=== PATIENT | female | born 1950 | race Caucasian/White ===

== ENCOUNTER → 2016-08-26 | Outpatient (CLI) | payer MEDICARE ==
--- NOTE | 2016-08-26 11:06 | RAD ---
Chest, 2 views, 08/26/2016: History: Dyspnea Comparison is made to a study from 12/22/2012. The heart is within normal limits in size. The pulmonary vascularity is normal. No pulmonary consolidation is seen. There is no evidence of pleural fluid. Moderate spurring is present in the spine. IMPRESSION: No acute cardiopulmonary abnormality is detected.
== END | disposition home or self-care (01) ==
LOC: DXRADRC 08:42
PROVIDERS: ATTEND Physician Assistant
DX: R06.00 Dyspnea, unspecified (principal); J40 Bronchitis, not specified as acute or chronic
CPT/HCPCS: 71020

== ENCOUNTER → 2016-09-14 | Outpatient (CLI) | payer MEDICARE ==
--- NOTE | 2016-09-14 13:24 | CARD ---
APPROVED REPORT EXAM: Two-dimensional and M-mode echocardiogram with Doppler and color Doppler. Other Information Quality : GoodHR: 61bpm Rhythm : NSR INDICATION Murmur RISK FACTORS Hypertension Obesity Hyperlipidemia Family History 2D DIMENSIONS RVDd3.0 (2.9-3.5cm)Left Atrium(2D)4.6 (1.6-4.0cm) IVSd1.0 (0.7-1.1cm)Aortic Root(2D)1.9 (2.0-3.7cm) LVDd5.2 (3.9-5.9cm)LVOT Diameter2.2 (1.8-2.4cm) PWd0.9 (0.7-1.1cm)LVDs3.4 (2.5-4.0cm) FS (%) 34.5 %SV83.1 ml LVEF(%)63.2 (>50%) Aortic Valve AoV Peak Enio.179.3cm/sAoV VTI43.1cm AO Peak GR.12.9mmHgLVOT Peak Enio.143.5cm/s LVOT VTI 35.00cmAO Mean GR.6mmHg MARY (VMAX)3.92yt5KXJ (VTI)3.06cm2 Mitral Valve MV E Egqeizgu167.0cm/sMV E Peak Gr.5mmHg MV DECEL [id number] A Ewxkclfb66.8cm/s MV E Mean Gr.2mmHgE/A Ratio1.7 MV A [id number] Pulmonary Valve PV Peak Ltnxjxfn920.2cm/sPV Peak Grad.4mmHg Tricuspid Valve TR P. Wccmlztw594fz/sTR Peak Gr.51mmHg Pulmonary Vein S1 Mecbgciq16.1cm/sD2 Xinqhqop45.5cm/s LEFT VENTRICLE The left ventricle is normal size. There is normal left ventricular wall thickness. The left ventricu lar systolic function is normal and the ejection fraction is within normal range. The Ejection Fracti on is 60-65%. There is normal LV segmental wall motion. Transmitral Doppler flow pattern is Grade I-a bnormal relaxation pattern. RIGHT VENTRICLE The right ventricle is normal size. There is normal right ventricular wall thickness. The right ventr icular systolic function is normal. ATRIA The left atrium is moderately dilated. The right atrium size is normal. The interatrial septum is int act with no evidence for an atrial septal defect or patent foramen ovale as noted on 2-D or Doppler i maging. AORTIC VALVE The aortic valve is moderately sclerotic. The aortic valve grossly appears to be trileaflet but canno t rule out bicuspid valve. Doppler and Color Flow revealed no significant aortic regurgitation. There is no significant aortic valvular stenosis. MITRAL VALVE Mitral annular calcification is mild. There is no evidence of mitral valve prolapse. There is no mitr al valve stenosis. Doppler and Color Flow revealed mild mitral regurgitation. TRICUSPID VALVE Doppler and Color Flow revealed mild tricuspid regurgitation. The pulmonary artery systolic pressure is estimated at 54 mmHg. There is mild pulmonary hypertension. PULMONIC VALVE Doppler and Color Flow revealed mild pulmonic valvular regurgitation. There is no pulmonic valvular s tenosis. GREAT VESSELS The aortic root is normal in size. The ascending aorta is normal in size. The IVC is normal in size a nd collapses >50% with inspiration. PERICARDIAL EFFUSION There is a trace anterior pericardial effusion. Critical Notification Critical Value: No <Conclusion> The left ventricular systolic function is normal and the ejection fraction is within normal range. Th e Ejection Fraction is 60-65%. There is normal LV segmental wall motion. The left atrium is moderately dilated. The aortic valve is moderately sclerotic. The aortic valve grossly appears to be trileaflet but canno t rule out bicuspid valve. Doppler and Color Flow revealed mild mitral regurgitation. Doppler and Color Flow revealed mild tricuspid regurgitation. The pulmonary artery systolic pressure is estimated at 54 mmHg. There is mild pulmonary hypertension.
== END | disposition home or self-care (01) ==
LOC: ECHO 08:53
PROVIDERS: ATTEND Physician Assistant
DX: I08.1 Rheumatic disorders of both mitral and tricuspid valves (principal); I27.2 Other secondary pulmonary hypertension
CPT/HCPCS: 93306

== ENCOUNTER 2018-08-03 20:55 | Inpatient (IN) | payer MEDICARE ==
[~2018-08-03] VITALS: Ht 157.5 cm; Wt 99.4 kg
[2018-08-03] MEDS ORDERED: IV NORMAL SALINE 1,000ML 1,000 ML IV SCH (21:11)
[2018-08-03] MEDS ORDERED: dilTIAZem 25 MG/5 ML VIAL IVP ONE ×2 (21:18→21:30)
--- NOTE | 2018-08-03 21:19 | PHYS DOC ---
Past History Past Medical History: A-Fib, Anxiety, High Cholesterol Smoking: Non-smoker Adult General Chief Complaint Chief Complaint: Palpitations HPI HPI Patient is a 67-year-old female who presents to the emergency department for evaluation. While watching TV about an hour and a half ago she began experiencing some palpitations and some shortness of breath. She did not really have any chest pain. She denies any dizziness or lightheadedness, nausea, vomiting. She states that she has had "an irregular heart beat" in the past, and thinks he might of been atrial fibrillation, but is uncertain. She does not take any anticoagulants. There are no alleviating or exacerbating factors to her symptoms. Review of Systems Review of Systems Constitutional: Denies fever or chills [] Eyes: Denies change in visual acuity, redness, or eye pain [] HENT: Denies nasal congestion or sore throat [] Respiratory: Denies cough or pleuritic chest pain [] Cardiovascular: No additional information not addressed in HPI [] GI: Denies abdominal pain, nausea, vomiting, bloody stools or diarrhea [] : Denies dysuria or hematuria [] Musculoskeletal: Denies back pain or joint pain [] Integument: Denies rash or skin lesions [] Neurologic: Denies headache, focal weakness or sensory changes [] Endocrine: Denies polyuria or polydipsia [] All other systems were reviewed and found to be within normal limits, except as documented in this note. Physical Exam Physical Exam PHYSICAL EXAM: CONSTITUTIONAL: Well developed, well nourished HEAD: normocephalic, atraumatic EENT: PERRL, EOMI. Conjunctivae normal color, sclerae non-icteric; moist mucous membranes. NECK: Supple, non-tender; no meningismus. LUNGS: Lungs CTA, breathing even and unlabored. Normal air movement. HEART: Rapid, irregularly irregular rhythm, no murmur CHEST: No deformity; non-tender ABDOMEN: The abdomen is soft, and non-tender, no masses or bruits. EXTREM: Normal ROM; no deformity, no calf tenderness. Normal pulses palpable in all extremities. There is no pedal edema. SKIN: No rash; no diaphoresis NEURO: Alert; normal speech and cognition; CN's grossly intact; strength grossly intact without focal deficit. BACK: No CVA TTP. Current Patient Data Lab Results Laboratory Tests Test 08/03/18 21:44 White Blood Count 8.8 x10^3/uL Red Blood Count 4.29 x10^6/uL Hemoglobin 12.8 g/dL Hematocrit 37.5 % Mean Corpuscular Volume 88 fL Mean Corpuscular Hemoglobin 30 pg Mean Corpuscular Hemoglobin Concent 34 g/dL Red Cell Distribution Width 14.3 % Platelet Count 349 x10^3/uL Neutrophils (%) (Auto) 65 % Lymphocytes (%) (Auto) 26 % Monocytes (%) (Auto) 7 % Eosinophils (%) (Auto) 2 % Basophils (%) (Auto) 1 % Neutrophils # (Auto) 5.7 x10^3uL Lymphocytes # (Auto) 2.2 x10^3/uL Monocytes # (Auto) 0.6 x10^3/uL Eosinophils # (Auto) 0.2 x10^3/uL Basophils # (Auto) 0.0 x10^3/uL Prothrombin Time 9.9 SEC Prothromb Time International Ratio 1.0 Activated Partial Thromboplast Time 26 SEC Sodium Level 140 mmol/L Potassium Level 3.9 mmol/L Chloride Level 102 mmol/L Carbon Dioxide Level 28 mmol/L Anion Gap 10 Blood Urea Nitrogen 20 mg/dL Creatinine 0.9 mg/dL Estimated GFR (Cockcroft-Gault) 62.3 BUN/Creatinine Ratio 22 Glucose Level 155 mg/dL Calcium Level 9.7 mg/dL Total Bilirubin 0.3 mg/dL Aspartate Amino Transf (AST/SGOT) 20 U/L Alanine Aminotransferase (ALT/SGPT) 20 U/L Alkaline Phosphatase 103 U/L Creatine Kinase 50 U/L Creatine Kinase MB (Mass) 0.8 ng/mL Creatine Kinase MB Relative Index 1.6 % Troponin I Quantitative < 0.017 ng/mL SI-Sbi-A-Type Natriuretic Peptide 224 pg/mL Total Protein 7.8 g/dL Albumin 3.8 g/dL Albumin/Globulin Ratio 1.0 Current Medications Medications (Trade) Dose Ordered Sig/Evangelina Route PRN Reason Start Time Stop Time Status Last Admin Dose Admin Apixaban (Eliquis) 5 mg BID PO 08/03/18 21:30 Diltiazem HCl 125 mg/Dextrose 125 ml @ 5 mls/hr CONT PRN IV SEE I/O RECORD 08/03/18 21:15 08/03/18 21:43 Diltiazem HCl (Cardizem Iv Push) 20 mg 1X ONCE IVP 08/03/18 21:30 08/03/18 21:31 DC 08/03/18 21:27 Aspirin (Children'S Aspirin) 162 mg 1X ONCE PO 08/03/18 21:30 08/03/18 21:31 DC 08/03/18 21:26 Sodium Chloride 1,000 ml @ 100 mls/hr Q10H IV 08/03/18 21:11 08/04/18 07:10 Diltiazem HCl (Cardizem Iv Push) 25 mg STK-MED ONCE IVP 08/03/18 21:18 08/03/18 21:19 DC EKG EKG [Rapid Atrial Fibrillation at 153 BPM, left axis deviation, nonspecific ST/T changes. Nonspecific intraventricular conduction delay is present. Otherwise normal intervals.] Radiology/Procedures Radiology/Procedures [ER physician preliminary chest x-ray interpretation: No acute disease.] Course & Med Decision Making Course & Med Decision Making Pertinent Labs and Imaging studies reviewed. (See chart for details) []10:30 PM:The patient's condition remains stable. I spoke with the hospitalist, who accepted the patient to the hospital for further evaluation and treatment. Patient did transiently convert to sinus rhythm but before and EKG could be obtained again today to document this rhythm changed she converted back into atrial fibrillation. Her rate has improved, but is not completely controlled on Cardizem drip, which is being titrated. CRITICAL CARE TIME: 45 Minutes, excluding any procedures and care of other patients. Dragon Disclaimer Dragon Disclaimer This electronic medical record was generated, in whole or in part, using a voice recognition dictation system. Departure Departure: Impression: Primary Impression: Rapid atrial fibrillation Disposition: ADMITTED INPATIENT Admitting Physician: Hanna Arce Condition: STABLE Referrals: JULIA DAS (PCP) CHAO COLON MD Aug 03, 2018 21:19
[2018-08-03] MEDS ORDERED: ASPIRIN 81 MG TAB.CHEW PO ONE (21:30)
[2018-08-03] MEDS: dilTIAZem VIAL 125 MG in IV DEXTROSE 5% 100 ML IV PRN (21:43)
[2018-08-03 21:54] LABS: BASO % 1 % (0-3); EOS # 0.2 x10^3/uL (0.0-0.7); EOS % 2 % (0-3); HEMATOCRIT 37.5 % (36.0-47.0); HEMOGLOBIN 12.8 g/dL (12.0-15.5); LYMPH # 2.2 x10^3/uL (1.0-4.8); LYMPH % 26 % (24-48); MEAN CORPUSCULAR HEMOGLOBIN 30 pg (25-35); MEAN CORPUSCULAR HGB CONC 34 g/dL (31-37); MEAN CORPUSCULAR VOLUME 88 fL (79-100); MONO # 0.6 x10^3/uL (0.0-1.1); MONO % 7 % (0-9); NEUT # 5.7 x10^3uL (1.8-7.7); NEUT % 65 % (31-73); PLATELET COUNT 349 x10^3/uL (140-400); RED BLOOD COUNT 4.29 x10^6/uL (3.50-5.40); RED CELL DISTRIBUTION WIDTH 14.3 % (11.5-14.5); WHITE BLOOD COUNT 8.8 x10^3/uL (4.0-11.0)
--- NOTE | 2018-08-03 22:14 | RAD ---
EXAM: CHEST 1 VIEW History: Shortness of breath, palpitations COMPARISON: 08/26/2016 TECHNIQUE: Single portable radiograph of the chest FINDINGS: The cardiac silhouette is unremarkable. The lungs are clear bilaterally. The costophrenic sulci are clear and well demarcated. IMPRESSION: No radiographic evidence of an acute cardiopulmonary process. Electronically signed by: Tan Rachel MD (08/03/2018 10:11 PM) [facility]
[2018-08-03 22:25] LABS: ALBUMIN 3.8 g/dL (3.4-5.0); CALCIUM 9.7 mg/dL (8.5-10.1); CREATININE 0.9 mg/dL (0.6-1.0); GFR 62.3; POTASSIUM 3.9 mmol/L (3.5-5.1); TOTAL BILIRUBIN 0.3 mg/dL (0.2-1.0); TOTAL PROTEIN 7.8 g/dL (6.4-8.2)
[2018-08-03 23:50] VITALS: BP 127/60
[2018-08-04] VITALS (42 sets, daily range): BP systolic 69–143; BP diastolic 48–78
[2018-08-04] MEDS ORDERED: GEMF600T8 PO (01:59)
[2018-08-04] MEDS ORDERED: GLUC1TAB33 PO (01:59)
[2018-08-04] MEDS ORDERED: MULT1TAB52 PO (01:59)
[2018-08-04] MEDS ORDERED: HYDR25TA10 PO (01:59)
[2018-08-04] MEDS ORDERED: ASPI-630 PO (01:59)
[2018-08-04] MEDS ORDERED: OXYB5TAB PO (01:59)
[2018-08-04] MEDS ORDERED: OMEP20TA63 PO (01:59)
[2018-08-04] MEDS ORDERED: LISI-334 PO (01:59)
[2018-08-04] MEDS ORDERED: METO25TA4 PO (01:59)
[2018-08-04] MEDS: APIXABAN 5 MG TABLET. PO SCH ×2 (02:24→08:39)
[2018-08-04] MEDS ORDERED: PANTOPRAZOLE 40 MG TABLET. PO SCH (07:30)
[2018-08-04] MEDS ORDERED: GEMFIBROZIL 600 MG TABLET. PO SCH (07:30)
[2018-08-04] MEDS: dilTIAZem VIAL 125 MG in IV DEXTROSE 5% 100 ML IV PRN (07:49)
[2018-08-04] MEDS ORDERED: DOCUSATE SODIUM 100 MG CAPSULE PO SCH (09:00)
[2018-08-04] MEDS ORDERED: OXYBUTYNIN CHLORIDE 5 MG TABLET PO SCH (09:00)
[2018-08-04] MEDS ORDERED: MULTIVITAMIN with MINERAL TABLET. PO SCH (09:00)
[2018-08-04] MEDS ORDERED: GLUCOSAMINE/CHOND 500/400MG CAPSULE PO SCH (09:00)
[2018-08-04 09:02] LABS: BASO % 0 % (0-3); EOS # 0.2 x10^3/uL (0.0-0.7); EOS % 2 % (0-3); HEMOGLOBIN 12.9 g/dL (12.0-15.5); LYMPH # 2.5 x10^3/uL (1.0-4.8); LYMPH % 32 % (24-48); MEAN CORPUSCULAR HEMOGLOBIN 30 pg (25-35); MEAN CORPUSCULAR HGB CONC 34 g/dL (31-37); MEAN CORPUSCULAR VOLUME 88 fL (79-100); MONO # 0.5 x10^3/uL (0.0-1.1); MONO % 6 % (0-9); NEUT # 4.6 x10^3uL (1.8-7.7); NEUT % 59 % (31-73); PLATELET COUNT 364 x10^3/uL (140-400); RED CELL DISTRIBUTION WIDTH 15.1 % (11.5-14.5); WHITE BLOOD COUNT 7.7 x10^3/uL (4.0-11.0)
[2018-08-04 09:03] LABS: ALBUMIN 3.5 g/dL (3.4-5.0); ALBUMIN/GLOBULIN RATIO 0.9 (1.0-1.7); CALCIUM 9.2 mg/dL (8.5-10.1); CREATININE 0.9 mg/dL (0.6-1.0); GFR 62.3; MAGNESIUM 1.6 mg/dL (1.8-2.4); POTASSIUM 3.7 mmol/L (3.5-5.1); TOTAL BILIRUBIN 0.3 mg/dL (0.2-1.0); TOTAL PROTEIN 7.3 g/dL (6.4-8.2)
[2018-08-04] MEDS ORDERED: MAGNESIUM OXIDE 400 MG TABLET PO SCH (09:13)
--- NOTE | 2018-08-04 09:29 | PDOC2 ---
SYMARIANNA Radha PATENTS EXAMINER 08/04/18 0928: CONSULT Date of Admission DATE: 08/04/18 TIME: 09:27 Reason for Consult: palpitations, atrial fibrillation with RVR, dyspnea Problem List Problems Medical Problems: (1) Rapid atrial fibrillation Status: Acute History of Present Illness Ms Quintana is a 67 year old female who normally follows with [facility]. She has a history of hypertension, hyperlipidemia, pulmonary hypertension, and aortic valve sclerosis. She presents with complaints of palpitations and heart racing. She states onset was while at rest. She denies any associated chest discomfort or dyspnea. She does report some discomfort in her left arm that is intermittent and unrelated to exertion. She reports a recent URI with increased shortness of breath and cough for which she was advised to increase use of her inhaler. She says over the last several months she has cut back her activity due to having no energy. Over; the last week she noticed increased dyspnea and orthopnea as well. She has had a nonproductive cough. She denies lightheadedness or syncope. SHe denies significant edema or weight increase. She would like to go home today. Her most recent echocardiogram completed 08/25 revealed normal normal WINTER systolic function with EF of 60-65%. Normal LV segmental wall motion. Moderate LAE. The aortic valve was moderately sclerotic. The aortic valve appeared grossly to be trileaflet but Bicuspid valve could not be ruled out. Additionally there was mild mitral regurgitation and mild tricuspid regurgitations The PAS was estimated at 534 mmHg. Her most recent stress test completed on Sep 29 2016 revealed normal myocardial perfusion. Cardiovascular: HTN, hyperipidemia, valve insufficiency, pulmonary hypertension , Other (HILDA) Pulmonary: Other (chronic recurrent bronchitis) GI: GERD, Hemorrhoids Renal/: UTI Past Surgical History: Other (partial hysterectoy) Family History: Cancer, Diabetes, Heart Disease, High Cholestrol, Hypertension Social History non smoker, no significant etoh, no illicit drug use Current Medications Current Medications Apixaban (Eliquis) 5 mg BID PO Last administered on 08/04/18at 08:39; Start at 21:30 Diltiazem HCl 125 mg/Dextrose 125 ml @ 5 mls/hr CONT PRN IV SEE I/O RECORD Last administered on 08/04/18at 07:49; Start 08/03/18 at 21:15 Diltiazem HCl (Cardizem Iv Push) 20 mg 1X ONCE IVP Last administered on 21:27; Start 08/03/18 at 21:30; Stop 08/03/18 at 21:31; Status DC Aspirin (Children'S Aspirin) 162 mg 1X ONCE PO Last administered on 08/03/18 21:26; Start 08/03/18 at 21:30; Stop 08/03/18 at 21:31; Status DC Sodium Chloride 1,000 ml @ 100 mls/hr Q10H IV Last administered on 08/03/18 21:11; Start 08/03/18 at 21:11; Stop 08/04/18 at 07:10; Status DC Diltiazem HCl (Cardizem Iv Push) 25 mg STK-MED ONCE IVP ; Start 08/03/18 at 21: 18; Stop 08/03/18 at 21:19; Status DC Gemfibrozil (Lopid) 600 mg BIDBFRMEAL PO Last administered on 08/04/18at 07:44; Start 08/04/18 at 07:30 Glucosamine/ Chondroitin (Glucosamine-Chondroitin 500/400mg) 1 cap DAILY PO Last administered on 08/04/18 08:38; Start 08/04/18 at 09:00 Multivitamins/ Calcium (Thera-M Plus) 1 tab DAILY PO Last administered on 08:38; Start 08/04/18 at 09:00 Pantoprazole Sodium (Protonix) 40 mg DAILYAC PO Last administered on 08/04/18 07:44; Start 08/04/18 at 07:30 Oxybutynin Chloride (Ditropan) 5 mg DAILY PO Last administered on 08/04/18 08: 38; Start 08/04/18 at 09:00 Docusate Sodium (Colace) 100 mg BID PO Last administered on 08/04/18 08:39; Start 08/04/18 at 09:00 Magnesium Oxide (Magnesium Oxide) 400 mg BID PO Last administered on 08/04/18 09:16; Start 08/04/18 at 09:13; Stop 08/05/18 at 21:01 Active Scripts Active Reported Multivitamins (Multivitamin) 1 Each Tablet 1 Tab PO DAILY Prilosec Otc (Omeprazole Magnesium) 20 Mg Tablet.dr 1 Tab PO DAILY Aspirin 81 Mg Tab.chew 81 Mg PO DAILY Glucosamine Chondroitin Tab (Gluc Good/Chondro Good A/Vit C/Mn) 1 Each Tablet 1 Each PO DAILY Oxybutynin Chloride Er (Oxybutynin Chloride) 5 Mg Tab.er.24 5 Mg PO DAILY Hydrochlorothiazide 25 Mg Tablet 25 Mg PO DAILY Gemfibrozil 600 Mg Tablet 600 Mg PO BID Lisinopril 20 Mg Tablet 20 Mg PO DAILY Metoprolol Tartrate 25 Mg Tablet 25 Mg PO BID Allergies: Coded Allergies: Penicillins (Verified Allergy, Unknown, 08/03/18) Review of System as per HPI or negative General: Alert, Oriented X3, Cooperative, No acute distress HEENT: Atraumatic, EOMI Lungs: Clear to auscultation Heart: Normal S1, Normal S2, Other (no significant murmurs, clicks or rubs, no gallops) Abdomen: Normal bowel sounds, Soft, No tenderness Extremities: No cyanosis, No edema, Normal pulses Neuro: Normal speech, Strength at 5/5 X4 ext, Cranial nerves 3-12 NL Psych/Mental Status: Mental status NL, Mood NL VITALS Vital Signs Date Time Temp Pulse Resp B/P (MAP) Pulse Ox O2 Delivery O2 Flow Rate FiO2 08/04/18 09:10 69 126/70 (88) 08/04/18 08:00 Nasal Cannula 2.0 08/04/18 06:50 18 97 08/04/18 04:45 98.3 Labs Laboratory Tests Test 08/03/18 21:44 08/04/18 04:45 08/04/18 08:40 White Blood Count 8.8 x10^3/uL (4.0-11.0) 7.7 x10^3/uL (4.0-11.0) Red Blood Count 4.29 x10^6/uL (3.50-5.40) 4.30 x10^6/uL (3.50-5.40) Hemoglobin 12.8 g/dL (12.0-15.5) 12.9 g/dL (12.0-15.5) Hematocrit 37.5 % (36.0-47.0) 38.0 % (36.0-47.0) Mean Corpuscular Volume 88 fL (79-100) 88 fL (79-100) Mean Corpuscular Hemoglobin 30 pg (25-35) 30 pg (25-35) Mean Corpuscular Hemoglobin Concent 34 g/dL (31-37) 34 g/dL (31-37) Red Cell Distribution Width 14.3 % (11.5-14.5) 15.1 % (11.5-14.5) Platelet Count 349 x10^3/uL (140-400) 364 x10^3/uL (140-400) Neutrophils (%) (Auto) 65 % (31-73) 59 % (31-73) Lymphocytes (%) (Auto) 26 % (24-48) 32 % (24-48) Monocytes (%) (Auto) 7 % (0-9) 6 % (0-9) Eosinophils (%) (Auto) 2 % (0-3) 2 % (0-3) Basophils (%) (Auto) 1 % (0-3) 0 % (0-3) Neutrophils # (Auto) 5.7 x10^3uL (1.8-7.7) 4.6 x10^3uL (1.8-7.7) Lymphocytes # (Auto) 2.2 x10^3/uL (1.0-4.8) 2.5 x10^3/uL (1.0-4.8) Monocytes # (Auto) 0.6 x10^3/uL (0.0-1.1) 0.5 x10^3/uL (0.0-1.1) Eosinophils # (Auto) 0.2 x10^3/uL (0.0-0.7) 0.2 x10^3/uL (0.0-0.7) Basophils # (Auto) 0.0 x10^3/uL (0.0-0.2) 0.0 x10^3/uL (0.0-0.2) Prothrombin Time 9.9 SEC (9.4-11.4) Prothromb Time International Ratio 1.0 (0.9-1.1) Activated Partial Thromboplast Time 26 SEC (23-33) Sodium Level 140 mmol/L (136-145) 142 mmol/L (136-145) Potassium Level 3.9 mmol/L (3.5-5.1) 3.7 mmol/L (3.5-5.1) Chloride Level 102 mmol/L (98-107) 104 mmol/L (98-107) Carbon Dioxide Level 28 mmol/L (21-32) 26 mmol/L (21-32) Anion Gap 10 (6-14) 12 (6-14) Blood Urea Nitrogen 20 mg/dL (7-20) 19 mg/dL (7-20) Creatinine 0.9 mg/dL (0.6-1.0) 0.9 mg/dL (0.6-1.0) Estimated GFR (Cockcroft-Gault) 62.3 62.3 BUN/Creatinine Ratio 22 (6-20) 21 (6-20) Glucose Level 155 mg/dL (70-99) 148 mg/dL (70-99) Calcium Level 9.7 mg/dL (8.5-10.1) 9.2 mg/dL (8.5-10.1) Total Bilirubin 0.3 mg/dL (0.2-1.0) 0.3 mg/dL (0.2-1.0) Aspartate Amino Transf (AST/SGOT) 20 U/L (15-37) 16 U/L (15-37) Alanine Aminotransferase (ALT/SGPT) 20 U/L (14-59) 18 U/L (14-59) Alkaline Phosphatase 103 U/L (46-116) 90 U/L (46-116) Creatine Kinase 50 U/L (26-192) Creatine Kinase MB (Mass) 0.8 ng/mL (0.0-3.6) Creatine Kinase MB Relative Index 1.6 % (0-4) Troponin I Quantitative < 0.017 ng/mL (0-0.055) 0.041 ng/mL (0-0.055) 0.028 ng/mL (0-0.055) GX-Hal-N-Type Natriuretic Peptide 224 pg/mL (0-124) Total Protein 7.8 g/dL (6.4-8.2) 7.3 g/dL (6.4-8.2) Albumin 3.8 g/dL (3.4-5.0) 3.5 g/dL (3.4-5.0) Albumin/Globulin Ratio 1.0 (1.0-1.7) 0.9 (1.0-1.7) Magnesium Level 1.6 mg/dL (1.8-2.4) Images CXR - IMPRESSION: No radiographic evidence of an acute cardiopulmonary process. Assessment/Plan 1. paroxysmal atrial fibrillation with RVR ->now sinus rhythm. change cardizem IV to oral dosing. On Eliquis for stroke prophylaxis. Reviewed risk or stroke , options for medical therapy with OAC and rate control, and reviewed bleed risk. Advised to keep scheduled evaluation with GI. Plan for discharge later today with MCT for AF burden from her Primary [facility] office. Scheduled for echo next week. Could consider repeat MPI as outpatient as well. CBC in one week and instructed on signs and symptoms of bleeding. All questions answered. 2. hypertension - fair control. resume homes at decreased dosing to allow for rate control. Further Recs as per Primary licensed mental health professional after MCT and echo completed. 3. hyperlipidemia - continue medical therapy and check lipids as advised by primary licensed mental health professional. 4. hypomagnesemia - replace. and recheck outpatient. Currently stable CV horowitz. 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 Will defer dcp to primary. VITALIY SANCHEZ MD 08/04/18 1528: CONSULT Assessment/Plan Patient seen and examined. Agree with PAR[employer] INSTRUCTOR's assessment and plan. Patient with new onset atrial fibrillation, presently back in sinus rhythm. Continue eliquis for stroke prophylaxis. Check 2-D echo to assess LV systolic function - could be done as an outpatient Follow-up with primary licensed mental health professional at [facility] cardiology. Thank you for your consultation. MARIANNA DAN APRN Aug 04, 2018 09:28 VITALIY SANCHEZ MD Aug 04, 2018 15:28
[2018-08-04] MEDS ORDERED: APIX5TAB3 PO (15:05)
[2018-08-04] MEDS ORDERED: LISI10TA2 PO (15:05)
[2018-08-04] MEDS ORDERED: DILT240C32 PO (15:05)
--- NOTE | 2018-08-04 16:13 | SSS ---
ADMIT DATE: 08/03/2018 HISTORY OF PRESENT ILLNESS: The patient is a 67-year-old female patient, who came to the Emergency Room for evaluation. She apparently was watching TV and began experiencing some palpitation and some shortness of breath. She did not really have any chest pain. She denied any dizziness or lightheadedness, nausea, vomiting. She has had an irregular heartbeat in the past and thinks that she might have been atrial fibrillation, but she is uncertain. She does not take any medication anticoagulant. There are no alleviating or exacerbating factors. She was evaluated in the Emergency Room, was found to be in atrial fibrillation with rapid ventricular response. She was given a bolus of Cardizem and was started on a Cardizem drip. She apparently converted to sinus rhythm and she was started on apixaban, evaluated by the Cardiology team. Start her on diltiazem 240 mg once a day, discontinue her metoprolol and cut down her lisinopril and was discharged home to continue to follow with cardiology team for an outpatient heart monitor as well as an outpatient echocardiogram. PAST MEDICAL HISTORY: Significant for gastroesophageal reflux disease, hypertension, hyperlipidemia, interstitial cystitis, obstructive sleep apnea on CPAP. PAST SURGICAL HISTORY: Significant for partial hysterectomy, esophagogastroduodenoscopy as well as colonoscopy. ALLERGIES: She is allergic to PENICILLIN. MEDICATIONS: She is currently on gemfibrozil 600 mg twice a day. She was on metoprolol tartrate 25 mg twice a day, lisinopril 20 mg once a day, aspirin 81 mg once a day, hydrochlorothiazide 25 mg once a day, omeprazole 20 mg once a day, oxybutynin chloride 5 mg daily, multivitamin 1 tablet once a day, and glucosamine chondroitin 1 tablet once a day. FAMILY HISTORY: She has 2 younger brothers are healthy, 1 older brother has coronary artery disease and had a myocardial infarction, one sister of brain tumor at age of 53. Her father at age of 83 because of COPD and lung cancer. Mother at age 36 because of Hodgkin's disease. SOCIAL HISTORY: She is . She has stepchildren. 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 REVIEW OF SYSTEMS: The patient has bilateral cataracts that have required surgery yet. She is also known to have senile macular degeneration. Denied any earache, tinnitus or sensorineural deafness. Denied any nosebleeds, stuffy nose or postnasal drip. Denied any sore throat, sore tongue, toothache, hoarseness of voice or difficulty swallowing. She denied any nausea, vomiting, diarrhea or constipation. Denied any hematemesis, melena or hematochezia. Denied any dysuria, frequency or hematuria. Denied any chest pain, shortness of breath, orthopnea, paroxysmal nocturnal dyspnea. Denied any cough, phlegm or hemoptysis. Denied any chest pain, shortness of breath, orthopnea, paroxysmal nocturnal dyspnea. Denied any cough, phlegm or hemoptysis. PHYSICAL EXAMINATION: GENERAL: On arrival to the Emergency Room, she looked well with no pallor, jaundice, cyanosis, or thyromegaly. No jugular venous distension. No limb edema. VITAL SIGNS: Her heart rate on arrival was 180, regularly irregular, blood pressure 128/55, temperature was 99, respiratory rate was 22 and oxygen saturation was 99% on room air. HEAD, EYES, EARS, NOSE, AND THROAT: Showed normocephalic, atraumatic. NECK: Supple. HEART: Showed normal first and second heart sounds. No gallop, rub or murmur. CHEST: Clear to auscultation. No crepitation or rhonchi. ABDOMEN: Distended, soft, nontender. NEUROLOGIC: She was awake, alert, responding appropriately. All cranial nerves intact. EXTREMITIES: She moves extremities without difficulty. She ambulates without assistance or assistive devices. LABORATORY DATA: Her lab work on arrival showed a white cell count of 8800, hemoglobin 12.8, hematocrit 37.5, MCV 88 and platelet count 349,000. Her chemistry showed a serum sodium 140, potassium 3.9, chloride 102, bicarbonate 28, anion gap of 10, BUN 20, creatinine 0.9, estimated GFR was 62 mL per minute. Her glucose 155, calcium was 9.7. Total bilirubin, AST, ALT, alkaline phosphatase were normal. Her total protein was 7.8, albumin was 3.8. She had 3 sets of cardiac enzymes that showed that her troponin was slightly rising from 0.017-0.041, then 0.028. She was given a loading dose of Cardizem and started on Cardizem drip and she eventually converted to sinus rhythm. She was seen in consultation by the Cardiology team and her metoprolol was discontinued and she was discharged home to continue on diltiazem 240 mg once a day, Colace, apixaban 5 mg twice a day, lisinopril was cut down to 10 mg once a day and metoprolol was discontinued. She continued on all other medication. FINAL DISCHARGE DIAGNOSES: 1. Atrial fibrillation with rapid ventricular response. 2. Gastroesophageal reflux disease. 3. Hypertension. 4. Hyperlipidemia. 5. Obstructive sleep apnea, on CPAP. 6. Interstitial cystitis. NORMA EDGAR MD DR: MONA/[email or web address] JOB#: [id number] / [id number]
--- NOTE | 2018-08-04 22:32 | EKG ---
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
--- NOTE | 2018-08-04 22:33 | EKG ---
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
--- NOTE | 2018-08-05 12:29 | EKG ---
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
== END 2018-08-04 15:27 | disposition home or self-care (01) | DRG 309 ==
LOC: ER 20:55 → ICU 22:30
PROVIDERS: ADMIT Internal Medicine; ATTEND Internal Medicine
DX: I48.0 Paroxysmal atrial fibrillation (principal); Z68.41 Body mass index [BMI] 40.0-44.9, adult; E83.42 Hypomagnesemia; N30.10 Interstitial cystitis (chronic) without hematuria; E78.00 Pure hypercholesterolemia, unspecified; F41.9 Anxiety disorder, unspecified; E78.5 Hyperlipidemia, unspecified; I10 Essential (primary) hypertension; I35.8 Other nonrheumatic aortic valve disorders; G47.33 Obstructive sleep apnea (adult) (pediatric); J40 Bronchitis, not specified as acute or chronic; K21.9 Gastro-esophageal reflux disease without esophagitis; Z83.3 Family history of diabetes mellitus; Z80.7 Family history of other malignant neoplasms of lymphoid, hematopoietic and related tissues; Z80.1 Family history of malignant neoplasm of trachea, bronchus and lung; Z82.49 Family history of ischemic heart disease and other diseases of the circulatory system; Z82.5 Family history of asthma and other chronic lower respiratory diseases; Z90.711 Acquired absence of uterus with remaining cervical stump; Z88.0 Allergy status to penicillin; E66.9 Obesity, unspecified
CPT/HCPCS: 36415; 71045; 80053; 82553; 83735; 83880; 84443; 84484; 85025; 85610; 85730; 87641; 93005; 96361; 96374; J3490; 99291-25; J7030

== ENCOUNTER 2018-08-06 00:53 | Emergency (ER) | payer MEDICARE ==
[~2018-08-06] VITALS: Ht 157.5 cm; Wt 99.3 kg
[~2018-08-06 00:53] MED LIST: APIX5TAB3 PO; ASPI-630 PO; DILT240C32 PO; GEMF600T8 PO; GLUC1TAB33 PO; HYDR25TA10 PO; LISI-334 PO; LISI10TA2 PO; METO25TA4 PO; MULT1TAB52 PO; OMEP20TA63 PO; OXYB5TAB PO
--- NOTE | 2018-08-06 01:14 | PHYS DOC ---
Past History Past Medical History: High Cholesterol, Hypertension Past Surgical History: Hysterectomy Smoking: Non-smoker Alcohol Use: None Drug Use: None Adult General HPI HPI Patient is a 59-year-old female who presents with complaint of noticing some tingling in her left foot before she went to bed and then started also noticing some tingling in her left arm and then in the left side of her face. At this point she called EMS and was worried about a stroke. Patient was recently admitted into the hospital for new onset atrial fibrillation was started on the L a question Cardizem. She denies any chest pain but does admit to some symptoms of palpitations. She denies any nausea, vomiting or fever. She denies any lateralizing weakness or speech deficits. Symptoms just started a couple of hours ago. Review of Systems Review of Systems Constitutional: Denies fever or chills [] Respiratory: Denies cough or shortness of breath [] Cardiovascular: No additional information not addressed in HPI [] GI: Denies abdominal pain, nausea, vomiting, bloody stools or diarrhea [] Neurologic: Denies headache, focal weakness. Complains of paresthesia left arm and left leg [] All other systems were reviewed and found to be within normal limits, except as documented in this note. Allergies Allergies Allergies Coded Allergies Type Severity Reaction Last Updated Verified Penicillins Allergy Unknown 08/03/18 Yes Physical Exam Physical Exam Constitutional: Well developed, well nourished, no acute distress, non-toxic appearance. [] HENT: Normocephalic, atraumatic, bilateral external ears normal, oropharynx moist, no oral exudates, nose normal. [] Eyes: PERRLA, EOMI, conjunctiva normal, no discharge. [] Neck: Normal range of motion, no tenderness, supple, no stridor. [] Cardiovascular: Regular rate and irregular rhythm[] Lungs & Thorax: Bilateral breath sounds clear to auscultation [] Abdomen: Bowel sounds normal, soft, no tenderness. [] Skin: Warm, dry, no erythema, no rash. [] Extremities: No tenderness, no cyanosis, no clubbing, ROM intact, no edema. [] Neurologic: Alert and oriented X 3, no focal deficits noted. [] EKG EKG [] Radiology/Procedures Radiology/Procedures [] Course & Med Decision Making Course & Med Decision Making Pertinent Labs and Imaging studies reviewed. (See chart for details) [] Dragon Disclaimer Dragon Disclaimer This electronic medical record was generated, in whole or in part, using a voice recognition dictation system. Departure Departure: Impression: Primary Impression: Paresthesia Additional Impression: Anxiety Disposition: 01 HOME, SELF-CARE Condition: STABLE Referrals: JULIA DAS (PCP) Problem Qualifiers MAN WALKER Jr. DO Aug 06, 2018 01:14
[2018-08-06 01:51] LABS: BASO % 1 % (0-3); EOS # 0.2 x10^3/uL (0.0-0.7); EOS % 3 % (0-3); LYMPH # 1.9 x10^3/uL (1.0-4.8); LYMPH % 29 % (24-48); MEAN CORPUSCULAR HEMOGLOBIN 30 pg (25-35); MEAN CORPUSCULAR HGB CONC 33 g/dL (31-37); MEAN CORPUSCULAR VOLUME 89 fL (79-100); MONO # 0.4 x10^3/uL (0.0-1.1); MONO % 6 % (0-9); NEUT # 4.1 x10^3uL (1.8-7.7); NEUT % 63 % (31-73); PLATELET COUNT 316 x10^3/uL (140-400); RED BLOOD COUNT 4.05 x10^6/uL (3.50-5.40); RED CELL DISTRIBUTION WIDTH 14.7 % (11.5-14.5); WHITE BLOOD COUNT 6.6 x10^3/uL (4.0-11.0)
[2018-08-06 02:06] LABS: ALBUMIN 3.8 g/dL (3.4-5.0); CALCIUM 9.3 mg/dL (8.5-10.1); CREATININE 0.8 mg/dL (0.6-1.0); DIRECT BILIRUBIN 0.2 mg/dL (0.0-0.2); GFR 71.3; MAGNESIUM 1.8 mg/dL (1.8-2.4); POTASSIUM 3.8 mmol/L (3.5-5.1); TOTAL BILIRUBIN 0.4 mg/dL (0.2-1.0)
--- NOTE | 2018-08-06 02:12 | RAD ---
CT head without contrast: Reason for examination: Left-sided numbness and tingling for 2 hours. Axial images were obtained through the brain. No contrast was administered. Exposure: One or more of the following individualized dose reduction techniques were utilized for this examination: 1. Automated exposure control 2. Adjustment of the mA and/or kV according to patient size 3. Use of iterative reconstruction technique. Ventricular systems are symmetric and not abnormally dilated. No midline shift is seen. There is no evidence of intracranial hemorrhage, infarct, mass or edema. No abnormalities are seen at the visualized portions of the orbits. The paranasal sinuses and mastoid air cells are clear. No acute abnormality seen in the skull. IMPRESSION: No acute intracranial abnormality evident. Electronically signed by: Lorelei Lopez MD (08/06/2018 2:09 AM) [facility] [place]
[2018-08-06 02:30] VITALS: BP 132/67
--- NOTE | 2018-08-06 06:29 | EKG ---
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
== END 2018-08-06 02:42 | disposition home or self-care (01) ==
LOC: ER 00:53
DX: F41.9 Anxiety disorder, unspecified (principal); R20.2 Paresthesia of skin; I48.91 Unspecified atrial fibrillation; E78.00 Pure hypercholesterolemia, unspecified; I10 Essential (primary) hypertension; Z88.0 Allergy status to penicillin
CPT/HCPCS: 36415; 70450; 80048; 80076; 83735; 84484; 85025; 93005; 99284

== ENCOUNTER 2018-11-26 02:45 | Inpatient (IN) | payer MEDICARE ==
[~2018-11-26] VITALS: Ht 154.9 cm; Wt 97.1 kg
[2018-11-26] VITALS (11 sets, daily range): BP systolic 97–148; BP diastolic 53–71
--- NOTE | 2018-11-26 02:49 | ED.ADGEN ---
Past History Past Medical History: A-Fib, Anxiety, Arrhythmia, Depression, High Cholesterol, Hypertension, Other Past Medical History Sleep Apnea Past Surgical History: Hysterectomy Smoking: Non-smoker Alcohol Use: None Drug Use: None Adult General Chief Complaint Chief Complaint ".. I woke up .. my throat was dry.. and some discomfort in my chest.. my heart seemed fast.. .. I get anxious... I know.. there is no doctor in office on Tuesday.. and I am worried.. I might have a UTI... so I decided to come in and get checked out..." HPI HPI Patient is a 67 year old female who presents with above hx and complaints of dysuria and chest discomfort. Chest discomfort in center of chest. Nonradiating. Does have complaints of tachycardia. Pt. has hx afib. , and is on Eliquis. and Diltiazem. Pt patient presents with A. fib and rapid ventricular response on monitor. Patient does have a history of sleep apnea, diabetes, GERD, hyperlipidemia, interstitial cystitis, obstructive sleep apnea, and anxiety. Patient also complaining of dysuria. Patient normally follows Dr. Miller. No recent travel. No history of ill contacts. No history immunosuppression. Pt. states has been compliant with her cardiac meds. Review of Systems Review of Systems Constitutional: Denies fever or chills [] Eyes: Denies change in visual acuity, redness, or eye pain [] HENT: Denies nasal congestion or sore throat [] Respiratory: Complaints of dyspnea Cardiovascular: No additional information not addressed in HPI [] GI: Denies abdominal pain, nausea, vomiting, bloody stools or diarrhea [] : Complains of dysuria Musculoskeletal: Denies back pain or joint pain [] Integument: Denies rash or skin lesions [] Neurologic: Denies headache, focal weakness or sensory changes [] Endocrine: Denies polyuria or polydipsia [] All other systems were reviewed and found to be within normal limits, except as documented in this note. Family History Family History Patient has a history of 2 younger brothers that are healthy. His children or brother coronary artery disease one sister of brain tumor father had a history of COPD and lung cancer. Mother has a history of Hodgkin's lymphoma. Current Medications Current Medications Current Medications Medications (Trade) Dose Ordered Sig/Evangelina Start Time Stop Time Status Last Admin Dose Admin Aspirin (Children'S Aspirin) 324 mg 1X ONCE 11/26/18 03:00 11/26/18 03:01 UNV Allergies Allergies Allergies Coded Allergies Type Severity Reaction Last Updated Verified Penicillins Allergy Unknown 08/03/18 Yes Physical Exam Physical Exam Constitutional: Moderate acute distress, non-toxic appearance. [] HENT: Normocephalic, atraumatic, bilateral external ears normal, oropharynx moist, no oral exudates, nose normal. [] Eyes: PERRLA, EOMI, conjunctiva normal, no discharge. [Glasses Neck: Normal range of motion, no tenderness, supple, no stridor. [] Cardiovascular: A. fib Heart rate with rapid ventricular response, PMI to the left. Lungs & Thorax: Bilateral breath sounds equal at apex on auscultation [] Abdomen: Bowel sounds normal, soft, no tenderness, no masses, no pulsatile masses. Old surgical scar. Obese Skin: Warm, dry, no erythema, no rash. [] Back: No tenderness, no CVA tenderness. [] Extremities: No tenderness, no cyanosis, no clubbing, ROM intact, no edema. []No cording appreciated. Neurologic: Alert and oriented X 3, normal motor function, normal sensory function, no focal deficits noted. [] Psychologic: Affect very anxious, judgement normal, mood normal. [] EKG EKG My interpretation EKG shows a A. fib with ventricular rate of 149. Does have a ST and T wave strain pattern.[] Radiology/Procedures Radiology/Procedures I interpretation chest x-ray shows[]borderline cardiomegaly. No large infiltrate. Course & Med Decision Making Course & Med Decision Making Pertinent Labs and Imaging studies reviewed. (See chart for details) Patient admitted to Dr. Arce with cardiology consult. [] Final Impression Final Impression 1. Dyspnea 2. Afib. with Rapid Vent. Response 3. DM glucose 141 4. Leukocytosis 13.4 5. Hypokalemia 3.4 6. Hx. Obstructive Sleep Apnea 7. Urinary Tact Infection[] Dragon Disclaimer Dragon Disclaimer This electronic medical record was generated, in whole or in part, using a voice recognition dictation system. Discharge Summary Visit Information Final Diagnosis Problems Medical Problems: (1) Dyspnea Status: Acute Brief Hospital Course Allergies Allergies Coded Allergies Type Severity Reaction Last Updated Verified Penicillins Allergy Intermediate 11/26/18 Yes Vital Signs Vital Signs Date Time Temp Pulse Resp B/P (MAP) Pulse Ox O2 Delivery O2 Flow Rate FiO2 11/26/18 03:14 145 168/89 11/26/18 02:55 97.8 18 97 Room Air Lab Results Laboratory Tests Test 11/26/18 02:55 11/26/18 03:05 Urine Collection Type Unknown Urine Color Yellow Urine Clarity Hazy Urine pH 7.0 Urine Specific [place] 1.010 Urine Protein Neg (NEG-TRACE) Urine Glucose (UA) Neg mg/dL (NEG) Urine Ketones (Stick) Neg mg/dL (NEG) Urine Blood Trace (NEG) Urine Nitrite Neg (NEG) Urine Bilirubin Neg (NEG) Urine Urobilinogen Dipstick 0.2 mg/dL (0.2 mg/dL) Urine Leukocyte Esterase Mod (NEG) Urine RBC 1-2 /HPF (0-2) Urine WBC >40 /HPF (0-4) Urine Squamous Epithelial Cells Mod /LPF Urine Transitional Epithelial Cells Mod /LPF Urine Bacteria Mod /HPF (0-FEW) Urine Opiates Screen Neg (NEG) Urine Methadone Screen Neg (NEG) Urine Barbiturates Neg (NEG) Urine Phencyclidine Screen Neg (NEG) Urine Amphetamine/Methamphetamine Neg (NEG) Urine Benzodiazepines Screen Neg (NEG) Urine Cocaine Screen Neg (NEG) Urine Cannabinoids Screen Neg (NEG) Urine Ethyl Alcohol Neg (NEG) White Blood Count 13.4 x10^3/uL (4.0-11.0) Red Blood Count 4.43 x10^6/uL (3.50-5.40) Hemoglobin 12.7 g/dL (12.0-15.5) Hematocrit 38.9 % (36.0-47.0) Mean Corpuscular Volume 88 fL (79-100) Mean Corpuscular Hemoglobin 29 pg (25-35) Mean Corpuscular Hemoglobin Concent 33 g/dL (31-37) Red Cell Distribution Width 15.3 % (11.5-14.5) Platelet Count 444 x10^3/uL (140-400) Neutrophils (%) (Auto) 65 % (31-73) Lymphocytes (%) (Auto) 27 % (24-48) Monocytes (%) (Auto) 5 % (0-9) Eosinophils (%) (Auto) 2 % (0-3) Basophils (%) (Auto) 1 % (0-3) Neutrophils # (Auto) 8.7 x10^3uL (1.8-7.7) Lymphocytes # (Auto) 3.6 x10^3/uL (1.0-4.8) Monocytes # (Auto) 0.7 x10^3/uL (0.0-1.1) Eosinophils # (Auto) 0.3 x10^3/uL (0.0-0.7) Basophils # (Auto) 0.1 x10^3/uL (0.0-0.2) Prothrombin Time 10.1 SEC (9.4-11.4) Prothromb Time International Ratio 1.0 (0.9-1.1) Activated Partial Thromboplast Time 30 SEC (23-33) D-Dimer (Candace) < 0.19 mg/L (0.00-0.50) Sodium Level 137 mmol/L (136-145) Potassium Level 3.4 mmol/L (3.5-5.1) Chloride Level 98 mmol/L (98-107) Carbon Dioxide Level 26 mmol/L (21-32) Anion Gap 13 (6-14) Blood Urea Nitrogen 19 mg/dL (7-20) Creatinine 0.9 mg/dL (0.6-1.0) Estimated GFR (Cockcroft-Gault) 62.3 Glucose Level 141 mg/dL (70-99) Calcium Level 10.4 mg/dL (8.5-10.1) Magnesium Level 1.7 mg/dL (1.8-2.4) Total Bilirubin 0.2 mg/dL (0.2-1.0) Direct Bilirubin 0.1 mg/dL (0.0-0.2) Aspartate Amino Transf (AST/SGOT) 19 U/L (15-37) Alanine Aminotransferase (ALT/SGPT) 38 U/L (14-59) Alkaline Phosphatase 109 U/L (46-116) Creatine Kinase 31 U/L (26-192) Troponin I Quantitative < 0.017 ng/mL (0-0.055) BE-Vqe-R-Type Natriuretic Peptide 75 pg/mL (0-124) Total Protein 7.7 g/dL (6.4-8.2) Albumin 3.5 g/dL (3.4-5.0) Lipase 140 U/L (73-393) Brief Hospital Course Ms. Quintana is a 67 old female who presented with Afib and rapid vent. response. Admit Dr. Arce with cardiology consult. Discharge Information Condition at Discharge: Improved Dischare Medications Current Medications Aspirin (Children'S Aspirin) 324 mg 1X ONCE PO Last administered on 11/26/18at 03:14; Start 11/26/18 at 03:30; Stop 11/26/18 at 03:31; Status DC Diltiazem HCl (Cardizem Iv Push) 10 mg 1X ONCE IVP Last administered on 11/26/18at 03:14; Start 11/26/18 at 03:15; Stop 11/26/18 at 03:21; Status DC Diltiazem HCl 125 mg/Dextrose 125 ml @ 5 mls/hr CONT PRN IV SEE I/O RECORD Last administered on 11/26/18at 03:27; Start 11/26/18 at 03:30; Stop 11/26/18 at 07:00 Sodium Chloride 0 ml @ As Directed STK-MED ONCE .ROUTE ; Start 11/26/18 at 03:20; Stop 11/26/18 at 03:21; Status DC Diltiazem HCl (Cardizem) 125 mg STK-MED ONCE IV ; Start 11/26/18 at 03:20; Stop 11/26/18 at 03:21; Status DC Dextrose 100 ml @ As Directed STK-MED ONCE IV ; Start 11/26/18 at 03:22; Stop 11/26/18 at 03:23; Status DC Lorazepam (Ativan) 1 mg 1X ONCE PO ; Start 11/26/18 at 04:00; Stop 11/26/18 at 04:01; Status DC Ondansetron HCl (Zofran) 4 mg PRN Q4HRS PRN IV NAUSEA/VOMITING; Start 11/26/18 at 04:00; Stop 11/27/18 at 03:59 Apixaban (Eliquis) 5 mg BID PO ; Start 11/26/18 at 09:00 Diltiazem HCl 125 mg/Dextrose 125 ml @ 5 mls/hr CONT PRN IV SEE I/O RECORD; Start 11/26/18 at 04:00 Trimethoprim/ Sulfamethoxazole (Bactrim Ds) 1 tab BID PO ; Start 11/26/18 at 09:00 Potassium Chloride (KCl Oral Soln) 40 meq 1X ONCE PO ; Start 11/26/18 at 04:30; Stop 11/26/18 at 04:31; Status DC Info (Anti-Coagulation Monitoring By Pharmacy) 1 each PRN DAILY PRN MC SEE COMMENTS; Start 11/26/18 at 04:15 Lactobacillus Rhamnosus (Culturelle) 1 cap BID PO ; Start 11/26/18 at 09:00 Active Scripts Active Lisinopril 10 Mg Tablet 1 Tab PO DAILY 30 Days Diltiazem 24HR Cd (Diltiazem Hcl) 240 Mg Cap.er.24h 240 Mg PO DAILY 3 Days Eliquis (Apixaban) 5 Mg Tablet 5 Mg PO BID 30 Days Reported Multivitamins (Multivitamin) 1 Each Tablet 1 Tab PO DAILY Prilosec Otc (Omeprazole Magnesium) 20 Mg Tablet.dr 1 Tab PO PRN DAILY PRN Glucosamine Chondroitin Tab (Gluc Good/Chondro Good A/Vit C/Mn) 1 Each Tablet 1 Each PO DAILY Oxybutynin Chloride Er (Oxybutynin Chloride) 5 Mg Tab.er.24 5 Mg PO DAILY Hydrochlorothiazide 25 Mg Tablet 25 Mg PO DAILY Dragon Disclaimer This chart was dictated in whole or in part using Voice Recognition software in a busy, high-work load, and often noisy Emergency Department environment. It may contain unintended and wholly unrecognized errors or omissions. FRANCESCA SHAH MD Nov 26, 2018 02:49
[2018-11-26] MEDS ORDERED: dilTIAZem 25 MG/5 ML VIAL IVP ONE (03:15)
[2018-11-26] MEDS ORDERED: IV NORMAL SALINE 100ML 0 ML ONE (03:20)
[2018-11-26] MEDS ORDERED: IV DEXTROSE 5% 100 ML IV ONE (03:22)
[2018-11-26 03:29] LABS: BASO # 0.1 x10^3/uL (0.0-0.2); BASO % 1 % (0-3); EOS # 0.3 x10^3/uL (0.0-0.7); EOS % 2 % (0-3); HEMATOCRIT 38.9 % (36.0-47.0); HEMOGLOBIN 12.7 g/dL (12.0-15.5); LYMPH # 3.6 x10^3/uL (1.0-4.8); LYMPH % 27 % (24-48); MEAN CORPUSCULAR HEMOGLOBIN 29 pg (25-35); MEAN CORPUSCULAR HGB CONC 33 g/dL (31-37); MEAN CORPUSCULAR VOLUME 88 fL (79-100); MONO # 0.7 x10^3/uL (0.0-1.1); MONO % 5 % (0-9); NEUT # 8.7 x10^3uL (1.8-7.7); NEUT % 65 % (31-73); PLATELET COUNT 444 x10^3/uL (140-400); RED BLOOD COUNT 4.43 x10^6/uL (3.50-5.40); RED CELL DISTRIBUTION WIDTH 15.3 % (11.5-14.5); WHITE BLOOD COUNT 13.4 x10^3/uL (4.0-11.0)
[2018-11-26] MEDS ORDERED: ASPIRIN 81 MG TAB.CHEW PO ONE (03:30)
[2018-11-26] MEDS ORDERED: dilTIAZem VIAL 125 MG in IV DEXTROSE 5% 100 ML IV PRN ×2 (03:30→04:00)
[2018-11-26 03:35] LABS: BARBITURATES NEG (NEG); BENZODIAZEPINES NEG (NEG); CANNABINOIDS NEG (NEG); COCAINE NEG (NEG); METHADONE NEG (NEG); OPIATES NEG (NEG); PHENCYCLIDINE NEG (NEG)
[2018-11-26 03:37] LABS: AMPHETAMINE/METHAMPHETAMINE NEG (NEG)
[2018-11-26 03:49] LABS: ALBUMIN 3.5 g/dL (3.4-5.0); CALCIUM 10.4 mg/dL (8.5-10.1); CREATININE 0.9 mg/dL (0.6-1.0); DIRECT BILIRUBIN 0.1 mg/dL (0.0-0.2); GFR 62.3; MAGNESIUM 1.7 mg/dL (1.8-2.4); POTASSIUM 3.4 mmol/L (3.5-5.1); TOTAL BILIRUBIN 0.2 mg/dL (0.2-1.0); TOTAL PROTEIN 7.7 g/dL (6.4-8.2)
[2018-11-26 03:59] LABS: BILIRUBIN,URINE NEG (NEG); CLARITY,URINE HAZY; COLOR,URINE YELLOW; GLUCOSE,URINE NEG (NEG); NITRITE,URINE NEG (NEG); UROBILINOGEN,URINE 0.2 mg/dL (0.2 mg/dL); WBC,URINE >40 /HPF (0-4)
[2018-11-26 04:00] LABS: BACTERIA,URINE MOD /HPF (0-FEW); SQUAMOUS EPITHELIAL CELL,UR MOD /LPF
[2018-11-26] MEDS ORDERED: ONDANSETRON PF 4 MG/2 ML VIAL. IV PRN (04:00)
[2018-11-26] MEDS ORDERED: LORazepam 1 MG TABLET PO ONE (04:00)
[2018-11-26] MEDS ORDERED: ANTI-COAG MONITOR BY PHARMACY. MC PRN (04:15)
[2018-11-26] MEDS ORDERED: POTASSIUM CHLORIDE 20 MEQ/15 ML ORAL LIQUID. PO ONE (04:30)
[2018-11-26] MEDS ORDERED: POTASSIUM CHLORIDE 20 MEQ TABLET.ER. PO ONE ×2 (05:00→08:30)
--- NOTE | 2018-11-26 08:17 | RAD ---
Exam performed: One view chest. Indication: Chest pain Date of Service: 11/26/2018 2:50 AM Comparison: One view chest from 08/03/2018. Single AP upright portable view chest findings: Cardiomediastinal silhouette is within limits of normal. No acute infiltrates, effusion or pneumothorax is detected. The bony structures are normal. Impression: No acute cardiopulmonary process is detected. Electronically signed by: Darlene Stephens MD (11/26/2018 8:15 AM) [facility]
[2018-11-26] MEDS ORDERED: SMZ/TMP 800/160MG TABLET. PO SCH (09:00)
[2018-11-26] MEDS ORDERED: LACTOBACILLUS RHAMNOSUS GG 1 CAPSULE. PO SCH (09:00)
[2018-11-26] MEDS ORDERED: APIXABAN 5 MG TABLET. PO SCH ×2 (09:00→21:00)
[2018-11-26 10:25] LABS: THYROID STIM HORMONE (TSH) 4.909 uIU/mL (0.358-3.740)
[2018-11-26] MEDS ORDERED: hydroCHLOROthiazide 25 MG TABLET PO SCH (11:00)
[2018-11-26] MEDS ORDERED: LISINOPRIL 10 MG TABLET PO SCH (11:00)
--- NOTE | 2018-11-26 12:11 | PDOC2 ---
CONSULT Date of Admission DATE: 11/26/18 TIME: 12:11 Reason for Consult: Atrial fibrillation Referring Physician: Dr. Arce Chief Complaint Palpitations Source: Chart review, Patient Problem List Problems Medical Problems: (1) Dyspnea Status: Acute History of Present Illness 67-year-old female with history of paroxysmal atrial fibrillation usually followed by [facility] cardiology and recently treated at [facility] for atrial fibrillation with RVR presented complaining of retrosternal chest discomfort and palpitations and was found to be in atrial fibrillation with RVR. She was started on Cardizem drip and she converted to sinus rhythm but she keeps having paroxysms of atrial fibrillation on telemetry. She denied any orthopnea/PND or syncope. Past Medical History Paroxysmal atrial fibrillation Gastroesophageal reflux disease Hypertension Hyperlipidemia Obstructive sleep apnea Cystitis Past Surgical History Hysterectomy Family History Positive for coronary artery disease and hypertension Social History Patient denied any smoking, alcohol or drug abuse Current Medications Current Medications Aspirin (Children'S Aspirin) 324 mg 1X ONCE PO Last administered on 11/26/18at 03:14; Start 11/26/18 at 03:30; Stop 11/26/18 at 03:31; Status DC Diltiazem HCl (Cardizem Iv Push) 10 mg 1X ONCE IVP Last administered on 11/26/18at 03:14; Start 11/26/18 at 03:15; Stop 11/26/18 at 03:21; Status DC Diltiazem HCl 125 mg/Dextrose 125 ml @ 5 mls/hr CONT PRN IV SEE I/O RECORD Last administered on 11/26/18at 03:27; Start 11/26/18 at 03:30; Stop 11/26/18 at 07:00; Status DC Sodium Chloride 0 ml @ As Directed STK-MED ONCE .ROUTE ; Start 11/26/18 at 03:20; Stop 11/26/18 at 03:21; Status DC Diltiazem HCl (Cardizem) 125 mg STK-MED ONCE IV ; Start 11/26/18 at 03:20; Stop 11/26/18 at 03:21; Status DC Dextrose 100 ml @ As Directed STK-MED ONCE IV ; Start 11/26/18 at 03:22; Stop 11/26/18 at 03:23; Status DC Lorazepam (Ativan) 1 mg 1X ONCE PO ; Start 11/26/18 at 04:00; Stop 11/26/18 at 04:01; Status DC Ondansetron HCl (Zofran) 4 mg PRN Q4HRS PRN IV NAUSEA/VOMITING; Start 11/26/18 at 04:00; Stop 11/27/18 at 03:59 Apixaban (Eliquis) 5 mg BID PO Last administered on 11/26/18at 08:44; Start 11/26/18 at 09:00; Stop 11/26/18 at 10:31; Status DC Diltiazem HCl 125 mg/Dextrose 125 ml @ 5 mls/hr CONT PRN IV SEE I/O RECORD; Start 11/26/18 at 04:00 Trimethoprim/ Sulfamethoxazole (Bactrim Ds) 1 tab BID PO Last administered on 11/26/18at 08:44; Start 11/26/18 at 09:00 Potassium Chloride (KCl Oral Soln) 40 meq 1X ONCE PO ; Start 11/26/18 at 04:30; Stop 11/26/18 at 04:31; Status Cancel Info (Anti-Coagulation Monitoring By Pharmacy) 1 each PRN DAILY PRN MC SEE COMMENTS; Start 11/26/18 at 04:15 Lactobacillus Rhamnosus (Culturelle) 1 cap BID PO Last administered on 11/26/18at 08:44; Start 11/26/18 at 09:00 Potassium Chloride (Klor-Con) 40 meq 1X ONCE PO Last administered on 11/26/18at 04:52; Start 11/26/18 at 05:00; Stop 11/26/18 at 05:01; Status DC Potassium Chloride (Klor-Con) 40 meq 1X ONCE PO ; Start 11/26/18 at 08:30; Stop 11/26/18 at 08:31; Status DC Apixaban (Eliquis) 5 mg BID PO ; Start 11/26/18 at 21:00 Hydrochlorothiazide (Hydrodiuril) 25 mg DAILY PO Last administered on 11/26/18at 10:43; Start 11/26/18 at 11:00 Lisinopril (Prinivil) 10 mg DAILY PO Last administered on 11/26/18at 10:44; Start 11/26/18 at 11:00 Diltiazem HCl (Cardizem 24hr Cd) 240 mg DAILY PO Last administered on 11/26/18at 10:43; Start 11/26/18 at 11:00 Hydrochlorothiazide (Hydrodiuril) 25 mg DAILY PO ; Start 11/27/18 at 09:00; Sta tus UNV Lisinopril (Prinivil) 10 mg DAILY PO ; Start 11/27/18 at 09:00; Status UNV Non-Formulary Medication (Diltiazem Hcl (Diltiazem 24HR Cd)) 240 mg DAILY PO ; Start 11/27/18 at 09:00; Status UNV Active Scripts Active Lisinopril 10 Mg Tablet 1 Tab PO DAILY 30 Days Diltiazem 24HR Cd (Diltiazem Hcl) 240 Mg Cap.er.24h 240 Mg PO DAILY 3 Days Eliquis (Apixaban) 5 Mg Tablet 5 Mg PO BID 30 Days Reported Multivitamins (Multivitamin) 1 Each Tablet 1 Tab PO DAILY Prilosec Otc (Omeprazole Magnesium) 20 Mg Tablet.dr 1 Tab PO PRN DAILY PRN Glucosamine Chondroitin Tab (Gluc Good/Chondro Good A/Vit C/Mn) 1 Each Tablet 1 Each PO DAILY Oxybutynin Chloride Er (Oxybutynin Chloride) 5 Mg Tab.er.24 5 Mg PO DAILY Hydrochlorothiazide 25 Mg Tablet 25 Mg PO DAILY Allergies: Coded Allergies: Penicillins (Verified Allergy, Intermediate, 11/26/18) PSYCHOLOGICAL ROS: No: Hallucinations Eyes: No: Loss of vision HEENT: No: Epistaxis Cardiovascular: yes: Chest Pain, Palpitations Gastrointestinal: No: Vomiting Genitourinary: No: Henaturia Neurological: No: Seizures Skin: No: Rash General: Alert, Oriented X3 HEENT: Atraumatic, PERRLA Lungs: Clear to auscultation Heart: Other (heart rate is irregular) Abdomen: Soft, No tenderness Extremities: No edema Psych/Mental Status: Mood NL VITALS Vital Signs Date Time Temp Pulse Resp B/P (MAP) Pulse Ox O2 Delivery O2 Flow Rate FiO2 11/26/18 11:00 76 17 148/59 (88) 99 Room Air 11/26/18 06:30 1.0 11/26/18 02:55 97.8 Labs Laboratory Tests Test 11/26/18 02:55 11/26/18 03:05 11/26/18 07:45 11/26/18 09:37 Urine Collection Type Unknown Urine Color Yellow Urine Clarity Hazy Urine pH 7.0 Urine Specific [place] 1.010 Urine Protein Neg (NEG-TRACE) Urine Glucose (UA) Neg mg/dL (NEG) Urine Ketones (Stick) Neg mg/dL (NEG) Urine Blood Trace (NEG) Urine Nitrite Neg (NEG) Urine Bilirubin Neg (NEG) Urine Urobilinogen Dipstick 0.2 mg/dL (0.2 mg/dL) Urine Leukocyte Esterase Mod (NEG) Urine RBC 1-2 /HPF (0-2) Urine WBC >40 /HPF (0-4) Urine Squamous Epithelial Cells Mod /LPF Urine Transitional Epithelial Cells Mod /LPF Urine Bacteria Mod /HPF (0-FEW) Urine Opiates Screen Neg (NEG) Urine Methadone Screen Neg (NEG) Urine Barbiturates Neg (NEG) Urine Phencyclidine Screen Neg (NEG) Urine Amphetamine/Methamphetamine Neg (NEG) Urine Benzodiazepines Screen Neg (NEG) Urine Cocaine Screen Neg (NEG) Urine Cannabinoids Screen Neg (NEG) Urine Ethyl Alcohol Neg (NEG) White Blood Count 13.4 x10^3/uL (4.0-11.0) Red Blood Count 4.43 x10^6/uL (3.50-5.40) Hemoglobin 12.7 g/dL (12.0-15.5) Hematocrit 38.9 % (36.0-47.0) Mean Corpuscular Volume 88 fL (79-100) Mean Corpuscular Hemoglobin 29 pg (25-35) Mean Corpuscular Hemoglobin Concent 33 g/dL (31-37) Red Cell Distribution Width 15.3 % (11.5-14.5) Platelet Count 444 x10^3/uL (140-400) Neutrophils (%) (Auto) 65 % (31-73) Lymphocytes (%) (Auto) 27 % (24-48) Monocytes (%) (Auto) 5 % (0-9) Eosinophils (%) (Auto) 2 % (0-3) Basophils (%) (Auto) 1 % (0-3) Neutrophils # (Auto) 8.7 x10^3uL (1.8-7.7) Lymphocytes # (Auto) 3.6 x10^3/uL (1.0-4.8) Monocytes # (Auto) 0.7 x10^3/uL (0.0-1.1) Eosinophils # (Auto) 0.3 x10^3/uL (0.0-0.7) Basophils # (Auto) 0.1 x10^3/uL (0.0-0.2) Prothrombin Time 10.1 SEC (9.4-11.4) Prothromb Time International Ratio 1.0 (0.9-1.1) Activated Partial Thromboplast Time 30 SEC (23-33) D-Dimer (Candace) < 0.19 mg/L (0.00-0.50) Sodium Level 137 mmol/L (136-145) Potassium Level 3.4 mmol/L (3.5-5.1) Chloride Level 98 mmol/L (98-107) Carbon Dioxide Level 26 mmol/L (21-32) Anion Gap 13 (6-14) Blood Urea Nitrogen 19 mg/dL (7-20) Creatinine 0.9 mg/dL (0.6-1.0) Estimated GFR (Cockcroft-Gault) 62.3 Glucose Level 141 mg/dL (70-99) Calcium Level 10.4 mg/dL (8.5-10.1) Magnesium Level 1.7 mg/dL (1.8-2.4) Total Bilirubin 0.2 mg/dL (0.2-1.0) Direct Bilirubin 0.1 mg/dL (0.0-0.2) Aspartate Amino Transf (AST/SGOT) 19 U/L (15-37) Alanine Aminotransferase (ALT/SGPT) 38 U/L (14-59) Alkaline Phosphatase 109 U/L (46-116) Creatine Kinase 31 U/L (26-192) Troponin I Quantitative < 0.017 ng/mL (0-0.055) 0.017 ng/mL (0-0.055) [id number]-Type Natriuretic Peptide 75 pg/mL (0-124) Total Protein 7.7 g/dL (6.4-8.2) Albumin 3.5 g/dL (3.4-5.0) Triglycerides Level 218 mg/dL (0-150) Cholesterol Level 143 mg/dL (0-200) LDL Cholesterol, Calculated 59 mg/dL (0-100) VLDL Cholesterol, Calculated 43 mg/dL (0-40) Non-HDL Cholesterol Calculated 102 mg/dL (0-129) HDL Cholesterol 41 mg/dL (40-60) Cholesterol/HDL Ratio 3.0 Lipase 140 U/L (73-393) Thyroid Stimulating Hormone (TSH) 4.909 uIU/mL (0.358-3.740) Glucose (Fingerstick) 124 mg/dL (70-99) Assessment/Plan 1. Atrial fibrillation with rapid ventricular response in a patient with known history of paroxysmal atrial fibrillation. She is presently back in sinus rhythm. Change Cardizem to by mouth. Continue eliquis for stroke prophylaxis and start flecainide for antiarrhythmic therapy. 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 She would benefit from ischemic evaluation secondary to retrosternal chest discomfort with RVR - will defer to primary airline dispatcher. 2. Hypertension: Controlled Thank you for your consultation VITALIY SANCHEZ MD Nov 26, 2018 12:11
[2018-11-26] MEDS ORDERED: FLECAINIDE 50 MG TABLET. PO SCH (12:15)
--- NOTE | 2018-11-26 12:25 | HP ---
ADMIT DATE: 11/26/2018 HISTORY OF PRESENT ILLNESS: The patient is a 67-year-old female patient who basically came again to the Emergency Room complaining that she woke up with her throat was dry and some discomfort in her chest and her heart is fast. She stated that she gets anxious and was worried that she might have a UTI and decided to come to the Emergency Room where she was evaluated and was found to be in AFib with rapid ventricular response. She was started on Cardizem drip and admitted to the ICU where she has finally reverted to sinus rhythm. Her heart rate was initially 145 beats per minute. She denied any shortness of breath, chest pain, orthopnea or paroxysmal nocturnal dyspnea. PAST MEDICAL HISTORY: Significant for gastroesophageal reflux disease, hypertension, hyperlipidemia, interstitial cystitis, obstructive sleep apnea on CPAP and paroxysmal atrial fibrillation with rapid ventricular response. She in fact was seen here in July of this year for similar episode and at that time she was discharged home on Cardizem as well as apixaban. PAST SURGICAL HISTORY: Significant for partial hysterectomy with gastrojejunostomy as well as colonoscopy. ALLERGIES: She is ALLERGIC TO PENICILLIN. FAMILY HISTORY: She has 2 younger brothers that are healthy, 1 older brother has coronary artery disease and had myocardial infarction. One sister of brain tumor at age of 53. Her father at age of 83 because of COPD and lung cancer. Mother at the age of 36 because of Hodgkin's disease. SOCIAL HISTORY: She is . She has stepchildren. She has never smoked, does not drink alcohol or use any recreational drugs. 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 REVIEW OF SYSTEMS: The patient denied any blurring of vision, cataract, glaucoma or macular degeneration. Denied any earache, tinnitus or sensorineural deafness. Denied any nosebleeds, stuffy nose or postnasal drip. Denied any sore throat, sore tongue, toothache, hoarseness of voice or difficulty swallowing. Denied any nausea, vomiting, diarrhea or constipation. Denied any hematemesis, melena or hematochezia. Denied any dysuria, frequency or hematuria. Denied any chest pain, shortness of breath, orthopnea or paroxysmal nocturnal dyspnea. Did complain of palpitation. MEDICATIONS: She is currently on following medications: Apixaban 5 mg twice a day, diltiazem 240 mg daily, lisinopril 10 mg once a day, hydrochlorothiazide 25 mg once a day, omeprazole 20 mg once a day, oxybutynin 5 mg daily, multivitamin 1 tablet once a day, and glucosamine chondroitin sulfate 1 tablet once a day. PHYSICAL EXAMINATION: GENERAL: On arrival to the Emergency Room, she was somewhat anxious, but there was no pallor, jaundice, cyanosis. No thyromegaly. No jugular venous distention. No limb edema. VITAL SIGNS: Her heart rate was 145, blood pressure was 168/89, temperature was 97.8, respiratory rate was 18 and oxygen saturation was 97% on room air. HEAD, EYES, EARS, NOSE AND THROAT: Showed normocephalic, atraumatic. NECK: Supple. HEART: Showed normal first and second heart sounds with no gallop, rub or murmur. CHEST: Clear to auscultation. No crepitation or rhonchi. ABDOMEN: Distended, soft, nontender. No guarding or rigidity. No organomegaly. All hernial orifices are intact. Bowel sounds normal. NEUROLOGIC: She was awake, alert, responding appropriately. All cranial nerves intact. EXTREMITIES: She moves extremities without difficulty. She ambulates without assistance or assistive devices. LABORATORY DATA: On admission showed a white cell count of 13,400, hemoglobin 12.7, hematocrit 38.9, MCV 88 and platelet count of 444,000. Her prothrombin time was 10.1, INR of 1, aPTT was 30. D-dimer was less than 0.19. Her chemistry showed a serum sodium of 137, potassium 3.4, chloride 98, bicarbonate 26, anion gap of 13, BUN 19, creatinine 0.9, estimated GFR was 63 mL per minute. Her glucose was 141, calcium was 10.4, magnesium was 1.7. Her total bilirubin, AST, ALT, alkaline phosphatase were normal. CK was only 31. Troponin was less than 0.017. Beta natriuretic peptide was 75. Total protein was 7.7, albumin was 3.5. Her serum lipase was 140. Her serum triglycerides were 218, total cholesterol of 43, LDL cholesterol was 59, VLDL was 43, HDL was 41 and the ratio was 3. Her TSH was slightly elevated at 4.909. Urinalysis showed the urine was yellow, hazy with a pH of 7, specific gravity of 1.010. The urine was negative for protein, glucose, ketones, trace of blood, negative for nitrite with moderate amount of leukocyte esterase. There are 1-2 rbc's, more than 40 wbc's, moderate amount of bacteria. Her toxic screen was negative. She has had a chest x-ray, which basically showed the cardiomediastinal silhouette is within normal limit of normal, no acute infiltrate, effusion or pneumothorax detected. The bony structures are normal. ASSESSMENT AND PLAN: In summary, this is a 67-year-old female patient who yet again came with atrial fibrillation with rapid ventricular response despite being on Cardizem 240 mg daily. She was started on Cardizem drip and was admitted to ICU. We will consult the cardiology team to assist with management. ONRMA EDGAR MD DR: MONA/[email or web address] JOB#: [id number] / [id number]
[2018-11-26 16:40] LABS: CALCIUM 9.5 mg/dL (8.5-10.1); CREATININE 0.8 mg/dL (0.6-1.0); GFR 71.3; POTASSIUM 3.9 mmol/L (3.5-5.1)
[2018-11-27] MEDS ORDERED: DILTIAZEM HCL 240 MG PO SCH (09:00)
[2018-11-27] MEDS ORDERED: hydroCHLOROthiazide 25 MG TABLET PO SCH (09:00)
[2018-11-27] MEDS ORDERED: LISINOPRIL 10 MG TABLET PO SCH (09:00)
--- NOTE | 2018-12-05 08:29 | EKG ---
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
== END 2018-11-26 16:40 | disposition home or self-care (01) | DRG 309 ==
LOC: ER 02:45 → ICU 03:47 → ER 03:47 → ICU 03:53
PROVIDERS: ADMIT Internal Medicine; ATTEND Internal Medicine
DX: I48.0 Paroxysmal atrial fibrillation (principal); N39.0 Urinary tract infection, site not specified; F41.9 Anxiety disorder, unspecified; F32.9 Major depressive disorder, single episode, unspecified; E78.00 Pure hypercholesterolemia, unspecified; G47.33 Obstructive sleep apnea (adult) (pediatric); E11.9 Type 2 diabetes mellitus without complications; E87.6 Hypokalemia; D72.829 Elevated white blood cell count, unspecified; K21.9 Gastro-esophageal reflux disease without esophagitis; E78.5 Hyperlipidemia, unspecified; I10 Essential (primary) hypertension; Z90.711 Acquired absence of uterus with remaining cervical stump; Z82.5 Family history of asthma and other chronic lower respiratory diseases; Z82.49 Family history of ischemic heart disease and other diseases of the circulatory system; Z80.7 Family history of other malignant neoplasms of lymphoid, hematopoietic and related tissues; Z80.1 Family history of malignant neoplasm of trachea, bronchus and lung; Z79.899 Other long term (current) drug therapy; Z79.01 Long term (current) use of anticoagulants; Z88.0 Allergy status to penicillin
CPT/HCPCS: 36415; 71045; 80048; 80061; 80076; 80307; 81001; 82550; 82947; 83690; 83735; 83880; 84443; 84484; 85025; 85379; 85610; 85730; 87086; 87186; 87641; 93005; 96365; 96376; G0238; J3490; 99285-25

== ENCOUNTER 2019-03-26 16:51 | Emergency (ER) | payer MEDICARE ==
[~2019-03-26] VITALS: Ht 154.9 cm; Wt 99.3 kg
[~2019-03-26 16:51] MED LIST changes: -OXYB5TAB PO; +OXYB5TAB2 PO
[2019-03-26] MEDS ORDERED: IV NORMAL SALINE 1,000ML 1,000 ML IV ONE (17:15)
--- NOTE | 2019-03-26 17:17 | PHYS DOC ---
Past History Past Medical History: A-Fib, Anxiety, Arrhythmia, Depression, High Cholesterol, Hypertension, Other Past Surgical History: Hysterectomy Smoking: Non-smoker Alcohol Use: None Drug Use: None Adult General Chief Complaint Chief Complaint: RAPID HEART RATE HPI HPI 68-year-old female presents with rapid heart rate. The patient has a history of A. fib. She is on Cardizem and flecanide. She is having cold symptoms and to take Coricidin HBP medication this morning. About an hour later, she began to have increased heart rate. This has persisted most of the day. She has tried an extra 50 mg of Cardizem and a half tablet of flecanide. She continues to have tachycardia, so her PCP and advised that she come the emergency room. She denies shortness of breath or chest pain. She has no other symptoms except for the rapid heartbeat. Review of Systems Review of Systems Constitutional: Denies fever or chills [] Eyes: Denies change in visual acuity, redness, or eye pain [] HENT: Denies nasal congestion or sore throat [] Respiratory: Denies cough or shortness of breath [] Cardiovascular: No additional information not addressed in HPI [] GI: Denies abdominal pain, nausea, vomiting, bloody stools or diarrhea [] : Denies dysuria or hematuria [] Musculoskeletal: Denies back pain or joint pain [] Integument: Denies rash or skin lesions [] Neurologic: Denies headache, focal weakness or sensory changes [] Endocrine: Denies polyuria or polydipsia [] All other systems were reviewed and found to be within normal limits, except as documented in this note. Current Medications Current Medications Current Medications Medications (Trade) Dose Ordered Sig/Evangelina Start Time Stop Time Status Last Admin Dose Admin Sodium Chloride 1,000 ml @ 1,000 mls/hr 1X ONCE 03/26/19 17:15 03/26/19 18:14 Allergies Allergies Allergies Coded Allergies Type Severity Reaction Last Updated Verified Penicillins Allergy Intermediate 11/26/18 Yes Physical Exam Physical Exam Constitutional: Well developed, well nourished, no acute distress, non-toxic appearance. [] HENT: Normocephalic, atraumatic, bilateral external ears normal, oropharynx moist, no oral exudates, nose normal. [] Eyes: PERRLA, EOMI, conjunctiva normal, no discharge. [] Neck: Normal range of motion, no tenderness, supple, no stridor. [] Cardiovascular:Heart rate regular rhythm, 3/6 systolic ejection murmur [] Lungs & Thorax: Bilateral breath sounds clear to auscultation [] Abdomen: Bowel sounds normal, soft, no tenderness, no masses, no pulsatile masses. [] Skin: Warm, dry, no erythema, no rash. [] Back: No tenderness, no CVA tenderness. [] Extremities: No tenderness, no cyanosis, no clubbing, ROM intact, no edema. [] Neurologic: Alert and oriented X 3, normal motor function, normal sensory function, no focal deficits noted. [] Psychologic: Affect normal, judgement normal, mood normal. [] EKG EKG Sinus tachycardia, rate 112, leftward axis, no ST elevations or depressions.[] Radiology/Procedures Radiology/Procedures [] Course & Med Decision Making Course & Med Decision Making Pertinent Labs and Imaging studies reviewed. (See chart for details) Patient's chest x-ray is unremarkable. Her labs are unremarkable. Her troponin is negative. I do not see a cause for the patient's tachycardia other than her cold medication use. I looked up this medication and it contains dextrome thorphan and guaifenesin depending on the inversion that she took. All of the inversions have action with or fan. The patient is given 1 L normal saline. She continues to have tachycardia rate of 113. Her blood pressure is elevated at 177/79. Her O2 sat is normal. The patient's urinalysis is pending. The patient's tachycardia has improved to the low 100s. This is sinus rhythm. I continue to believe that this is related to her medication use. I do not see any other concerning findings. I have discussed all these findings with the patient. She is stable for discharge at this time. [] Dragon Disclaimer Dragon Disclaimer This electronic medical record was generated, in whole or in part, using a voice recognition dictation system. Departure Departure: Impression: Primary Impression: Tachycardia Additional Impression: Medication side effect Disposition: 01 HOME/RESIDENCE PRIOR TO ADM Condition: STABLE Referrals: JULIA DAS (PCP) Problem Qualifiers DEVIN SPRAGUE DO Mar 26, 2019 17:17
[2019-03-26 17:34] LABS: BASO # 0.1 x10^3/uL (0.0-0.2); BASO % 1 % (0-3); EOS # 0.2 x10^3/uL (0.0-0.7); EOS % 2 % (0-3); HEMATOCRIT 41.2 % (36.0-47.0); HEMOGLOBIN 13.3 g/dL (12.0-15.5); LYMPH # 2.3 x10^3/uL (1.0-4.8); LYMPH % 25 % (24-48); MEAN CORPUSCULAR HEMOGLOBIN 28 pg (25-35); MEAN CORPUSCULAR HGB CONC 32 g/dL (31-37); MEAN CORPUSCULAR VOLUME 86 fL (79-100); MONO # 0.4 x10^3/uL (0.0-1.1); MONO % 5 % (0-9); NEUT # 6.4 x10^3uL (1.8-7.7); NEUT % 68 % (31-73); PLATELET COUNT 360 x10^3/uL (140-400); RED BLOOD COUNT 4.82 x10^6/uL (3.50-5.40); RED CELL DISTRIBUTION WIDTH 16.2 % (11.5-14.5); WHITE BLOOD COUNT 9.4 x10^3/uL (4.0-11.0)
[2019-03-26 17:55] LABS: ALBUMIN 3.6 g/dL (3.4-5.0); ALBUMIN/GLOBULIN RATIO 0.9 (1.0-1.7); CALCIUM 9.2 mg/dL (8.5-10.1); CREATININE 0.8 mg/dL (0.6-1.0); GFR 71.1; POTASSIUM 4.3 mmol/L (3.5-5.1); TOTAL BILIRUBIN 0.2 mg/dL (0.2-1.0); TOTAL PROTEIN 7.7 g/dL (6.4-8.2)
[2019-03-26 18:20] LABS: BARBITURATES NEG (NEG); BENZODIAZEPINES NEG (NEG); CANNABINOIDS NEG (NEG); COCAINE NEG (NEG); METHADONE NEG (NEG); OPIATES NEG (NEG); PHENCYCLIDINE NEG (NEG)
[2019-03-26 18:21] LABS: AMPHETAMINE/METHAMPHETAMINE NEG (NEG)
[2019-03-26 18:33] LABS: CLARITY,URINE HAZY; COLOR,URINE YELLOW
[2019-03-26 18:34] LABS: BILIRUBIN,URINE NEG (NEG); GLUCOSE,URINE NEG (NEG); NITRITE,URINE NEG (NEG); UROBILINOGEN,URINE 0.2 mg/dL (0.2 mg/dL)
[2019-03-26 18:35] LABS: BACTERIA,URINE FEW /HPF (0-FEW); HYALINE CASTS, URINE OCC /HPF; SQUAMOUS EPITHELIAL CELL,UR MOD /LPF
[2019-03-26 18:41] VITALS: BP 141/79
--- NOTE | 2019-03-26 22:37 | RAD ---
CHEST AP ONLY Clinical Indication: Tachycardia Comparison: 11/26/2018 Portable Chest X-ray Exam. Findings: Portable upright frontal view of the chest was obtained. The cardiomediastinal silhouette is normal. Lungs are clear. There is no pneumothorax. No pleural effusion is appreciated. No acute bone abnormality. IMPRESSION: No acute cardiopulmonary process. Electronically signed by: Jhon Clarke MD (03/26/2019 10:35 PM) [facility]
--- NOTE | 2019-03-27 03:40 | EKG ---
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
== END 2019-03-26 18:46 | disposition home or self-care (01) ==
LOC: ER 16:51
DX: R00.0 Tachycardia, unspecified (principal); T50.995A Adverse effect of other drugs, medicaments and biological substances, initial encounter; I48.91 Unspecified atrial fibrillation; F41.9 Anxiety disorder, unspecified; F32.9 Major depressive disorder, single episode, unspecified; E78.00 Pure hypercholesterolemia, unspecified; I10 Essential (primary) hypertension; Z88.0 Allergy status to penicillin; Y92.89 Other specified places as the place of occurrence of the external cause
CPT/HCPCS: 36415; 71045; 80053; 80307; 81001; 83880; 84484; 85025; 87086; 93005; 99285-25; J7030

== ENCOUNTER 2019-04-12 04:02 | Observation (INO) | payer MEDICARE ==
[~2019-04-12] VITALS: Ht 157.5 cm; Wt 95.4 kg
[2019-04-12] MEDS ORDERED: ASPIRIN 81 MG TAB.CHEW PO ONE (04:30)
--- NOTE | 2019-04-12 04:40 | EKG ---
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
[2019-04-12 04:41] LABS: BASO # 0.1 x10^3/uL (0.0-0.2); BASO % 1 % (0-3); EOS # 0.6 x10^3/uL (0.0-0.7); EOS % 7 % (0-3); HEMATOCRIT 39.8 % (36.0-47.0); HEMOGLOBIN 13.1 g/dL (12.0-15.5); LYMPH % 35 % (24-48); MEAN CORPUSCULAR HEMOGLOBIN 28 pg (25-35); MEAN CORPUSCULAR HGB CONC 33 g/dL (31-37); MEAN CORPUSCULAR VOLUME 85 fL (79-100); MONO # 0.5 x10^3/uL (0.0-1.1); MONO % 6 % (0-9); NEUT # 4.2 x10^3uL (1.8-7.7); NEUT % 51 % (31-73); PLATELET COUNT 307 x10^3/uL (140-400); RED BLOOD COUNT 4.68 x10^6/uL (3.50-5.40); RED CELL DISTRIBUTION WIDTH 16.1 % (11.5-14.5); WHITE BLOOD COUNT 8.4 x10^3/uL (4.0-11.0)
--- NOTE | 2019-04-12 04:47 | RAD ---
Indication: Chest pain TECHNIQUE:Portable AP chest X-ray COMPARISON: 03/26/2019 FINDINGS: Heart is normal in size. Lungs are clear. No pneumothorax or pleural effusion. Visualized bony thorax within normal limits. IMPRESSION: No acute pulmonary process. Electronically signed by: Jf Piña DO (04/12/2019 4:44 AM) [facility]
--- NOTE | 2019-04-12 04:48 | PHYS DOC ---
Past History Past Medical History: A-Fib, Anxiety, Arrhythmia, Depression, High Cholesterol, Hypertension Past Surgical History: Cancer Surgery, Hysterectomy, Other Additional Past Surgical Histo: LUMPECTOMY Smoking: Non-smoker Alcohol Use: None Drug Use: None Adult General Chief Complaint Chief Complaint: CHEST PAIN HPI HPI 68-year-old female presents with chest pain. She woke from her sleep 1 hour ago with a central chest pressure that radiated into her left arm. At its worse it was a 5 out of 10. She denies shortness of breath or diaphoresis. The pain has improved to a 1 out of 10 now. It started to get better after she got to the emergency room. She doesn't know if it was worse with exertion because she just came here. She has had a cardiac catheter in the past but it was several years ago. She has A. fib baseline. She takes Cardizem and flecainide. She is also on Eliquis. No new medication changes. She denies fever or chills. Review of Systems Review of Systems Constitutional: Denies fever or chills [] Eyes: Denies change in visual acuity, redness, or eye pain [] HENT: Denies nasal congestion or sore throat [] Respiratory: Denies cough or shortness of breath [] Cardiovascular: No additional information not addressed in HPI [] GI: Denies abdominal pain, nausea, vomiting, bloody stools or diarrhea [] : Denies dysuria or hematuria [] Musculoskeletal: Denies back pain or joint pain [] Integument: Denies rash or skin lesions [] Neurologic: Denies headache, focal weakness or sensory changes [] Endocrine: Denies polyuria or polydipsia [] All other systems were reviewed and found to be within normal limits, except as documented in this note. Current Medications Current Medications Current Medications Medications (Trade) Dose Ordered Sig/Evangelina Start Time Stop Time Status Last Admin Dose Admin Aspirin (Children'S Aspirin) 324 mg 1X ONCE 04/12/19 04:30 04/12/19 04:31 UNV Allergies Allergies Allergies Coded Allergies Type Severity Reaction Last Updated Verified Penicillins Allergy Intermediate 11/26/18 Yes Physical Exam Physical Exam Constitutional: Well developed, obese, well nourished, no acute distress, non- toxic appearance. [] HENT: Normocephalic, atraumatic, bilateral external ears normal, oropharynx dry, no oral exudates, nose normal. [] Eyes: PERRLA, EOMI, conjunctiva normal, no discharge. [] Neck: Normal range of motion, no tenderness, supple, no stridor. [] Cardiovascular:Heart rate 117, irregular rhythm, no murmur [] Lungs & Thorax: Bilateral breath sounds clear to auscultation [] Abdomen: Bowel sounds normal, soft, no tenderness, no masses, no pulsatile masses. [] Skin: Warm, dry, no erythema, no rash. [] Back: No tenderness, no CVA tenderness. [] Extremities: No tenderness, no cyanosis, no clubbing, ROM intact, no edema. [] Neurologic: Alert and oriented X 3, normal motor function, normal sensory function, no focal deficits noted. [] Psychologic: Affect normal, judgement normal, mood normal. [] Current Patient Data Vital Signs Vital Signs Date Time Temp Pulse Resp B/P (MAP) Pulse Ox O2 Delivery O2 Flow Rate FiO2 04/12/19 04:25 108 18 178/98 (124) 97 Room Air EKG EKG Irregular rhythm, rate 117, left axis deviation, no ST elevations or depressions, right bundle branch block, similar to previous on 03/26/2019. [] Radiology/Procedures Radiology/Procedures [] Course & Med Decision Making Course & Med Decision Making Pertinent Labs and Imaging studies reviewed. (See chart for details) The patient's labs are unremarkable. Her troponin is negative. Her EKG is similar to previous. Her heart rate is still just over 103. Blood pressure is elevated at 183/82. We will give her some metoprolol by IV. Her heart rate has improved to rate of 93 and appears to be sinus. The patient's HEART score is 5. I will admit the patient for chest pain rule out. I spoke with Dr. Arce and he has accepted the patient for admission. [] Dragon Disclaimer Dragon Disclaimer This electronic medical record was generated, in whole or in part, using a voice recognition dictation system. The HEART Score for CP Pts HEART Score for Chest Pain: HEART Score for Chest Pain Response (Comments) Value History Moderately Suspicious 1 ECG Nonspecific Repolarizatio 1 Age > 65 2 Risk Factors 1 or 2 Risk Factors 1 Troponin < Normal Limit 0 Total 5 Risk Factors: Risk Factors: DM, Current or recent (<one month) smoker, HTN, HLP, family history of CAD, obesity. Risk Scores: Score 0 - 3: 2.5% MACE over next 6 weeks - Discharge Home Score 4 - 6: 20.3% MACE over next 6 weeks - Admit for Clinical Observation Score 7 - 10: 72.7% MACE over next 6 weeks - Early Invasive Strategies Departure Departure: Impression: Primary Impression: Chest pain Additional Impressions: Atrial fibrillation with RVR Hypertension Disposition: ADMITTED INPATIENT Admitting Physician: Hanna Arce Condition: STABLE Referrals: JULIA DAS (PCP) Problem Qualifiers Primary Impression: Chest pain Chest pain type: precordial pain Qualified Codes: R07.2 - Precordial pain Additional Impressions: Hypertension Hypertension type: unspecified Qualified Codes: I10 - Essential (primary) hypertension DEVIN SPRAGUE DO Apr 12, 2019 04:48
[2019-04-12 04:54] LABS: ALBUMIN 3.5 g/dL (3.4-5.0); ALBUMIN/GLOBULIN RATIO 0.9 (1.0-1.7); CALCIUM 9.1 mg/dL (8.5-10.1); CREATININE 0.8 mg/dL (0.6-1.0); GFR 71.1; POTASSIUM 3.7 mmol/L (3.5-5.1); TOTAL BILIRUBIN 0.3 mg/dL (0.2-1.0); TOTAL PROTEIN 7.4 g/dL (6.4-8.2)
[2019-04-12] MEDS ORDERED: IV NORMAL SALINE 1,000ML 1,000 ML IV ONE (05:00)
[2019-04-12 05:21] LABS: BACTERIA,URINE FEW /HPF (0-FEW); BILIRUBIN,URINE NEG (NEG); CLARITY,URINE CLEAR; COLOR,URINE YELLOW; GLUCOSE,URINE NEG (NEG); NITRITE,URINE NEG (NEG); RBC,URINE OCC /HPF (0-2); SQUAMOUS EPITHELIAL CELL,UR FEW /LPF; UROBILINOGEN,URINE 0.2 mg/dL (0.2 mg/dL)
[2019-04-12] MEDS ORDERED: NITROGLYCERIN SUBLINGUAL 0.4 MG BOTTLE OF 25. SL PRN (05:30)
[2019-04-12] MEDS ORDERED: ONDANSETRON PF 4 MG/2 ML VIAL. IV PRN (05:30)
[2019-04-12] MEDS ORDERED: METOPROLOL TARTRATE 5 MG/5 ML VIAL. IV ONE (05:45)
[2019-04-12] MEDS ORDERED: FLEC50TA PO (06:30)
[2019-04-12] MEDS ORDERED: LISI10TA2 PO (06:30)
[2019-04-12] MEDS ORDERED: DILT240C33 PO (06:30)
[2019-04-12] MEDS ORDERED: OXYB10TA2 PO (06:30)
[2019-04-12 06:38] VITALS: BP 148/83
--- NOTE | 2019-04-12 07:28 | NUR ---
The patient, SAMY, 68 y/o, F admitted by NORMA EDGAR MD, was given written information regarding hospital policies, unit procedures and contact persons. Valuables were checked and noted. PT presented with chest pressure, admitted for r/o, observation status. PT transported to unit via EMS, transferred to bed safely. PT oriented to unit. Reviewed PT's PMH, PSH, SH, FH, and medications.
--- NOTE | 2019-04-12 08:05 | PDOC2 ---
CARDIAC CONSULT DATE OF CONSULT Date Of Consult DATE: 04/12/19 TIME: 08:00 REASON FOR CONSULT Reason for Consult Chest pain REFERRING PHYSICIAN Referring Physician Dr. Arce SOURCE Source: Chart review, Patient HPI History of Present Illness This is a 68 yo female who presented secondary to chest pain. Patient reports he woke about 3am with pressure in her central chest. [place] a little flush in the face and had some mild tingling in her left arm. No dizziness, diaphoresis, shortness of breath, palpitations, or nausea/vomiting. Pain resolved prior to arrival to ED and has not returned. Does have a history of PAFIB. Is on flecainide and Cardizem for rhythm/rate control and Eliquis for stroke prophylaxis. Follows with [facility] Cardiology. Has appoint with Lilian So APRN in 2 weeks. No recent stress test. Had echo > 6 months ago. Has h/o GERD that was controlled on omeprazole. GI provider recently told he should was doing well and could wean herself from PPI. Patient discontinue therapy and has been having GERD symptoms following meals. Has been taking TUMs PRN. PAST MEDICAL HISTORY Cardiovascular: AFIB, HTN, hyperipidemia Pulmonary: Asthma GI: GERD Heme/Onc: Cancer (ovarian ) Psych: Anxiety, Depression Musculoskeletal: Osteoarthritis Renal/: Other (interstitial cystitis ) PAST SURGICAL HISTORY Past Surgical History: Hysterectomy FAMILY HISTORY Family History: Heart Disease (brother ), Hypertension SOCIAL HISTORY Smoke: No ALCOHOL: none Drugs: None Lives: Alone CURRENT MEDICATIONS Current Medications Current Medications Aspirin (Children'S Aspirin) 324 mg 1X ONCE PO Last administered on 04/12/19at 04:59; Start 04/12/19 at 04:30; Stop 04/12/19 at 05:46; Status DC Sodium Chloride 1,000 ml @ 1,000 mls/hr 1X ONCE IV Last administered on 04/12/19at 04:59; Start 04/12/19 at 05:00; Stop 04/12/19 at 05:59; Status DC Ondansetron HCl (Zofran) 4 mg PRN Q4HRS PRN IV NAUSEA/VOMITING; Start 04/12/19 at 05:30; Stop 04/13/19 at 05:29 Nitroglycerin (Nitrostat) 0.4 mg PRN Q5MIN PRN SL CHEST PAIN; Start 04/12/19 at 05:30; Stop 04/13/19 at 05:29 Metoprolol Tartrate (Lopressor Vial) 10 mg 1X ONCE IV Last administered on 04/12/19at 05:48; Start 04/12/19 at 05:45; Stop 04/12/19 at 05:46; Status DC Apixaban (Eliquis) 5 mg BID PO ; Start 04/12/19 at 09:00 Diltiazem HCl (Cardizem 24hr Cd) 240 mg DAILY PO ; Start 04/12/19 at 09:00 Flecainide Acetate (Tambocor) 50 mg BID PO ; Start 04/12/19 at 09:00 Lisinopril (Prinivil) 10 mg BID PO ; Start 04/12/19 at 09:00 Glucosamine/ Chondroitin (Glucosamine-Chondroitin 500/400mg) 1 cap DAILY PO ; Start 04/12/19 at 09:00 Multivitamins/ Calcium (Thera-M Plus) 1 tab DAILY PO ; Start 04/12/19 at 09:00 Oxybutynin Chloride (Ditropan) 5 mg BID PO ; Start 04/12/19 at 09:00 Active Scripts Active Eliquis (Apixaban) 5 Mg Tablet 5 Mg PO BID 30 Days Reported Diltiazem 24Hr Cd (Diltiazem HCl) 240 Mg Cap.er.24h 240 Mg PO DAILY Oxybutynin Chloride Er (Oxybutynin Chloride) 10 Mg Tab.er.24 10 Mg PO DAILY Lisinopril 10 Mg Tablet 10 Mg PO BID Flecainide Acetate 50 Mg Tablet 50 Mg PO BID Multivitamins (Multivitamin) 1 Each Tablet 1 Tab PO DAILY Glucosamine Chondroitin Tab (Gluc Good/Chondro Good A/Vit C/Mn) 1 Each Tablet 1 Each PO DAILY ALLERGIES Allergies: Coded Allergies: Penicillins (Verified Allergy, Intermediate, 11/26/18) ROS Review of Systems 14 point ROS conducted with pertinent positives noted above in HPI. PHYSICAL EXAM General: Alert, Oriented X3, Cooperative, No acute distress HEENT: Atraumatic, Mucous membr. moist/pink Lungs: Clear to auscultation Heart: Regular rate, Normal S1, Normal S2, Other (2/6 systolic murmur ) Abdomen: Soft, No tenderness Extremities: No edema, Normal pulses Skin: No breakdown Neuro: Normal speech, Sensation intact Psych/Mental Status: Mental status NL, Mood NL MUSCULOSKELETAL: Osteoarthritic changes both hands VITALS Vital Signs Vital Signs Date Time Temp Pulse Resp B/P (MAP) Pulse Ox O2 Delivery O2 Flow Rate FiO2 04/12/19 07:07 Room Air 04/12/19 06:38 98.1 88 20 148/83 (104) 99 LABS LABS Laboratory Tests Test 04/12/19 04:15 04/12/19 05:00 White Blood Count 8.4 x10^3/uL (4.0-11.0) Red Blood Count 4.68 x10^6/uL (3.50-5.40) Hemoglobin 13.1 g/dL (12.0-15.5) Hematocrit 39.8 % (36.0-47.0) Mean Corpuscular Volume 85 fL (79-100) Mean Corpuscular Hemoglobin 28 pg (25-35) Mean Corpuscular Hemoglobin Concent 33 g/dL (31-37) Red Cell Distribution Width 16.1 % (11.5-14.5) Platelet Count 307 x10^3/uL (140-400) Neutrophils (%) (Auto) 51 % (31-73) Lymphocytes (%) (Auto) 35 % (24-48) Monocytes (%) (Auto) 6 % (0-9) Eosinophils (%) (Auto) 7 % (0-3) Basophils (%) (Auto) 1 % (0-3) Neutrophils # (Auto) 4.2 x10^3uL (1.8-7.7) Lymphocytes # (Auto) 3.0 x10^3/uL (1.0-4.8) Monocytes # (Auto) 0.5 x10^3/uL (0.0-1.1) Eosinophils # (Auto) 0.6 x10^3/uL (0.0-0.7) Basophils # (Auto) 0.1 x10^3/uL (0.0-0.2) Sodium Level 143 mmol/L (136-145) Potassium Level 3.7 mmol/L (3.5-5.1) Chloride Level 104 mmol/L (98-107) Carbon Dioxide Level 24 mmol/L (21-32) Anion Gap 15 (6-14) Blood Urea Nitrogen 16 mg/dL (7-20) Creatinine 0.8 mg/dL (0.6-1.0) Estimated GFR (Cockcroft-Gault) 71.1 BUN/Creatinine Ratio 20 (6-20) Glucose Level 135 mg/dL (70-99) Calcium Level 9.1 mg/dL (8.5-10.1) Total Bilirubin 0.3 mg/dL (0.2-1.0) Aspartate Amino Transf (AST/SGOT) 31 U/L (15-37) Alanine Aminotransferase (ALT/SGPT) 60 U/L (14-59) Alkaline Phosphatase 109 U/L (46-116) Troponin I Quantitative < 0.017 ng/mL (0-0.055) Total Protein 7.4 g/dL (6.4-8.2) Albumin 3.5 g/dL (3.4-5.0) Albumin/Globulin Ratio 0.9 (1.0-1.7) Urine Collection Type Unknown Urine Color Yellow Urine Clarity Clear Urine pH 6.5 Urine Specific Index 1.010 Urine Protein Neg (NEG-TRACE) Urine Glucose (UA) Neg mg/dL (NEG) Urine Ketones (Stick) Neg mg/dL (NEG) Urine Blood Trace (NEG) Urine Nitrite Neg (NEG) Urine Bilirubin Neg (NEG) Urine Urobilinogen Dipstick 0.2 mg/dL (0.2 mg/dL) Urine Leukocyte Esterase Small (NEG) Urine RBC Occ /HPF (0-2) Urine WBC 5-10 /HPF (0-4) Urine Squamous Epithelial Cells Few /LPF Urine Bacteria Few /HPF (0-FEW) ECHOCARDIOGRAM Echocardiogram <Conclusion> The left ventricular systolic function is normal and the ejection fraction is within normal range. The Ejection Fraction is 60-65%. There is normal LV segmental wall motion. The left atrium is moderately dilated. The aortic valve is moderately sclerotic. The aortic valve grossly appears to be trileaflet but cannot rule out bicuspid valve. Doppler and Color Flow revealed mild mitral regurgitation. Doppler and Color Flow revealed mild tricuspid regurgitation. The pulmonary artery systolic pressure is estimated at 54 mmHg. There is mild pulmonary hypertension. DATE: 09/14/16 1323 ASSESSMENT/PLAN Assessment/Plan 1. Chest pain, atypical. Initial troponin negative. Possible GI in nature 2. Accelerated hypertension; now better controlled 3. PAFIB; maintaining SR with flecainide. On CCB. Eliquis for stroke prophylaxis. 4. Hyperlipidemia 5. GERD; has been off omeprazole Recommendations Echo to assess LV systolic function Trend troponin, lipids Continue flecainide and Cardizem for rate/rhythm control Eliquis for stroke prophylaxis Resume PPI therapy If trop remains negative and echo WNL, may discharge from a CV standpoint and f/u with primary cardiology in 2 weeks as scheduled Outpatient ischemic evaluation. Will defer to primary cardiology. OLIVIA GUZMÁN APRN Apr 12, 2019 08:05
[2019-04-12] MEDS ORDERED: APIXABAN 5 MG TABLET. PO SCH (09:00)
[2019-04-12] MEDS ORDERED: LISINOPRIL 10 MG TABLET PO SCH (09:00)
[2019-04-12] MEDS ORDERED: PANTOPRAZOLE 40 MG TABLET. PO SCH (09:00)
[2019-04-12] MEDS ORDERED: MULTIVITAMIN with MINERAL TABLET. PO SCH (09:00)
[2019-04-12] MEDS ORDERED: FLECAINIDE 50 MG TABLET. PO SCH (09:00)
[2019-04-12] MEDS ORDERED: ASPIRIN ENTERIC COATED 81 MG TABLET.DR. PO SCH (09:00)
[2019-04-12] MEDS ORDERED: OXYBUTYNIN CHLORIDE 5 MG TABLET PO SCH (09:00)
[2019-04-12] MEDS ORDERED: GLUCOSAMINE/CHOND 500/400MG CAPSULE PO SCH (09:00)
--- NOTE | 2019-04-12 10:10 | NUR ---
PT resting in bed still having some pressure. Cardiology at bedside. PT is able to verbalize understanding of poc. Caprice GARCIA
[2019-04-12 10:40] VITALS: BP 124/72
--- NOTE | 2019-04-12 14:01 | CARD ---
MR#: [id number] Date of Study: 04/12/2019 Ordering Physician: OLIVIA GUZMÁN, Referring Physician: OLIVIA GUZMÁN, Tech: Shawanda Lauren APPROVED REPORT EXAM: Two-dimensional and M-mode echocardiogram with Doppler and color Doppler. Other Information Quality : AverageHR: 95bpm Technically limited study due to body habitus. INDICATION Atrial Fibrillation Chest Pain RISK FACTORS Hypertension Hyperlipidemia 2D DIMENSIONS RVDd3.5 (2.9-3.5cm)Left Atrium(2D)4.1 (1.6-4.0cm) IVSd1.0 (0.7-1.1cm)Aortic Root(2D)3.1 (2.0-3.7cm) LVDd5.4 (3.9-5.9cm)LVOT Diameter2.1 (1.8-2.4cm) PWd1.2 (0.7-1.1cm)LVDs3.1 (2.5-4.0cm) FS (%) 42.0 %SV101.5 ml LVEF(%)72.5 (>50%) Aortic Valve AoV Peak Enio.206.9cm/sAoV VTI41.0cm AO Peak GR.17.1mmHgLVOT Peak Enio.143.4cm/s LVOT VTI 33.17cmAO Mean GR.9mmHg MARY (VMAX)2.81oh1HEQ (VTI)2.82cm2 Mitral Valve MV E Hzosznca116.9cm/sMV DECEL [id number] MV A Wkewifan47.5cm/sE/A Ratio1.2 Pulmonary Valve PV Peak Eyranhci936.4cm/sPV Peak Grad.5mmHg Tricuspid Valve TR P. Ueazeegw569oy/sRAP SIBBAWAF3uhIf TR Peak Gr.01wbXjWOOM08lzIf Pulmonary Vein S1 Rpsllvfm18.3cm/sD2 Rqxpvnkd63.4cm/s LEFT VENTRICLE The Left Ventricle is borderline dilated. There is mild concentric left ventricular hypertrophy. The left ventricular systolic function is normal and the ejection fraction is within normal range. The Ej ection Fraction is 60-65%. There is normal LV segmental wall motion. Transmitral Doppler flow pattern is Grade II-pseudonormal filling dynamics. RIGHT VENTRICLE The right ventricle is borderline dilated. There is normal right ventricular wall thickness. The righ t ventricular systolic function is normal. ATRIA The left atrium is severely dilated. The right atrium size is normal. The interatrial septum is intac t with no evidence for an atrial septal defect or patent foramen ovale as noted on 2-D or Doppler gregorio ging. AORTIC VALVE The aortic valve is normal in structure and function. Doppler and Color Flow revealed no significant aortic regurgitation. There is no significant aortic valvular stenosis. MITRAL VALVE The mitral valve is normal in structure and function. There is no evidence of mitral valve prolapse. There is no mitral valve stenosis. Doppler and Color-flow revealed trace mitral regurgitation. TRICUSPID VALVE The tricuspid valve is normal in structure and function. Doppler and Color Flow revealed trace tricus pid regurgitation with an estimated PAP of 53 mmHg. There is no tricuspid valve stenosis. PULMONIC VALVE Doppler and Color Flow revealed trace pulmonic valvular regurgitation. There is no pulmonic valvular stenosis. GREAT VESSELS The aortic root is normal in size. The IVC was not well visualized. PERICARDIAL EFFUSION There is a trace pericardial effusion. Critical Notification Critical Value: No <Conclusion> The left ventricular systolic function is normal and the ejection fraction is within normal range. Th e Ejection Fraction is 60-65%. There is normal LV segmental wall motion. The left atrium is severely dilated. Doppler and Color Flow revealed trace tricuspid regurgitation with an estimated PAP of 53 mmHg. Signed by : Taurus Foss, Electronically Approved : 04/12/2019 14:01:01
[2019-04-12 14:49] VITALS: BP 134/74
--- NOTE | 2019-04-12 16:46 | NUR ---
PT dc to home. PT is able to verbalize understanding of discharge instructions and medications. Pt left amb via private vehicle with nephew driving. Caprice GARCIA
--- NOTE | 2019-04-12 16:55 | SSS ---
ADMIT DATE: 04/12/2019 HISTORY OF PRESENT ILLNESS: The patient is a 68-year-old female patient, who came to the Emergency Room with a complaint of chest pain. She woke up from sleep one hour prior to arrival to the Emergency Room with central chest pressure that radiated to her left arm, at its worst it was 5/10 in severity. She denied any shortness of breath or diaphoresis. The pain has improved to 1/10 by the time she arrived here. It started to get better after she got to the Emergency Room. She does not know if it was worse with exertion because she just came here. She has had a cardiac catheter in the past, but it was several years ago. She is known to have AFib at baseline. She takes Cardizem and flecainide. She is also on Eliquis. No new medication changes. She was evaluated in the Emergency Room and has had 3 sets of cardiac enzymes that ruled out myocardial infarction. Her EKG showed that she was in atrial fibrillation with a heart rate of 117, left axis deviation, no ST segment elevation or depression. She has right bundle branch block, similar to previous EKGs. She did have an echocardiogram done, which showed that her left ventricular systolic function is normal and ejection fraction within normal range. Ejection fraction was 60-65%. There is normal left ventricular segmental wall motion, left atrium is severely dilated. Her Doppler and color flow revealed trace tricuspid regurgitation and estimated pulmonary artery pressure of 53 mmHg. As she is ruled out for myocardial infarction, a decision was made to discharge her home to follow with her primary supervisor paste plant in 2 weeks' time as scheduled and she can have outpatient ischemic evaluation but that will be deferred to her primary supervisor [employer]. PAST MEDICAL HISTORY: Significant for gastroesophageal reflux disease, hypertension, hyperlipidemia, interstitial cystitis and obstructive sleep apnea, on CPAP. PAST SURGICAL HISTORY: Significant for partial hysterectomy, esophagogastroduodenoscopy as well as colonoscopy. She did have also a previous history of cardiac catheterization years ago. ALLERGIES: She is ALLERGIC TO PENICILLIN. FAMILY HISTORY: She has 2 younger brothers who are healthy, 1 older brother has coronary artery disease and had myocardial infarction. One sister of brain tumor at age of 53. Her father at the age of 83 because of COPD and lung cancer. Mother at age of 36 because of Hodgkin's disease. SOCIAL HISTORY: She is , has 7 children. She never smoked, does not drink alcohol or use recreational drugs. 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 MEDICATIONS: She is currently on apixaban 5 mg twice a day, flecainide acetate 50 mg twice a day, diltiazem hydrochloride 240 mg once a day, lisinopril 10 mg twice a day, oxybutynin chloride 10 mg daily, multivitamin 1 tablet once a day and glucosamine/chondroitin sulfate with vitamin C, magnesium 1 tablet once a day. REVIEW OF SYSTEMS: The patient denied any blurring of vision, cataract, glaucoma or macular degeneration. Denied any earache, tinnitus or sensorineural deafness. Denied any nosebleeds, stuffy nose or postnasal drip. Denied any sore throat, sore tongue, toothache, hoarseness of voice or difficulty swallowing. She denied any nausea, vomiting, diarrhea or constipation. Denied any hematemesis, melena, hematochezia. Denied any dysuria, frequency or hematuria. Did complain of chest pressure, but denied any diaphoresis. Denied any nausea or vomiting. Denied any shortness of breath. Denied any radiation. PHYSICAL EXAMINATION: GENERAL: On arrival to the Emergency Room, she looked well and was clearly in no apparent respiratory distress. No pallor, jaundice, cyanosis or thyromegaly. No jugular venous distention. No lower limb edema. VITAL SIGNS: Her heart rate was 88, blood pressure was 148/83, temperature was 98.1, respiratory rate 20, and oxygen saturation was 99%. HEAD, EYES, EARS, NOSE AND THROAT: Showed normocephalic, atraumatic. NECK: Supple. HEART: Showed normal first and second heart sounds. No gallop or murmur. CHEST: Clear to auscultation. No crepitation or rhonchi. ABDOMEN: Distended, soft, nontender. NEUROLOGIC: She was awake, alert, responding appropriately. All cranial nerves intact. EXTREMITIES: She moves extremities without difficulty. She ambulates without assistance or assistive devices. LABORATORY DATA: Her lab work showed a white cell count of 8400, hemoglobin 13, hematocrit 39, MCV 85 and platelet count of 307,000. Her chemistry showed a serum sodium 143, potassium 3.7, chloride 104, bicarbonate 24, anion gap of 15, BUN 16, creatinine 0.8, estimated GFR was 71 mL per minute. Her glucose was 135, calcium was 9.1. Total bilirubin, AST, ALT, alkaline phosphatase normal. Total protein 7.4, albumin 3.5. Her first set of cardiac enzymes showed troponin to be less than 0.017. Urinalysis was essentially unremarkable. Her chest x-ray showed the heart is normal in size. Lungs are clear. No pneumothorax or pleural effusion. Visualized bony thorax within normal limits. She was admitted and had 2 more sets of cardiac enzymes that were negative. She was evaluated by the Cardiology team and had had an echocardiogram, which showed that her left ventricular systolic function was normal with normal ejection fraction and therefore it was felt that the patient has atypical chest pain, likely to acid reflux, and therefore she was started on Protonix, and was discharged home to continue on her current medication. FINAL DISCHARGE DIAGNOSES: Chest pain, atypical; acute myocardial infarction ruled out; accelerated hypertension, improved; paroxysmal atrial fibrillation, maintaining sinus rhythm on flecainide, on calcium channel radha and Eliquis for stroke prophylaxis. She has hyperlipidemia; gastroesophageal reflux for which she was started on Protonix. She is also known to have obstructive sleep apnea, on CPAP. NORMA EDGAR MD DR: [email or web address]/jagdeep JOB#: [id number] / [id number]
[2019-04-12 19:31] LABS: THYROID STIM HORMONE (TSH) 4.461 uIU/mL (0.358-3.740)
== END 2019-04-12 16:40 | disposition home or self-care (01) ==
LOC: ER 04:02 → 1 SOUTH 05:22
PROVIDERS: ADMIT Internal Medicine; ATTEND Internal Medicine
DX: R07.89 Other chest pain (principal); I10 Essential (primary) hypertension; I48.0 Paroxysmal atrial fibrillation; E78.5 Hyperlipidemia, unspecified; K21.9 Gastro-esophageal reflux disease without esophagitis; G47.33 Obstructive sleep apnea (adult) (pediatric); Z90.710 Acquired absence of both cervix and uterus; Z98.61 Coronary angioplasty status
CPT/HCPCS: 36415; 71045; 80053; 80061; 81001; 84443; 84484; 85025; 87086; 93005; 93306; 96374; 99284; G0378; J3490; G0379; J7030

== ENCOUNTER 2019-05-06 20:44 | Observation (INO) | payer MEDICARE ==
[~2019-05-06] VITALS: Ht 157.5 cm; Wt 95.3 kg
[~2019-05-06 20:44] MED LIST changes: +DILT240C33 PO; +FLEC50TA PO; +OXYB10TA2 PO; -OXYB5TAB2 PO; +OXYB5TAB3 PO
--- NOTE | 2019-05-06 20:47 | PHYS DOC ---
Past History Past Medical History: A-Fib, Anxiety, Arthritis, Arrhythmia, Depression, High Cholesterol, Hypertension Past Surgical History: Cancer Surgery, Hysterectomy, Other Additional Past Surgical Histo: LUMPECTOMY Smoking: Non-smoker Alcohol Use: None Drug Use: None Adult General Chief Complaint Chief Complaint: ".. I was just sitting... watching my dogs...Kiana.. and Rani.. gies in 10 yrs old... and Rani is a year old... but all sudden I got really flushed.. I had just taken my night meds... I do have an up coming heart cath on .. at [facility]...." HPI HPI Patient is a 68 year old female who presents with above hx and complaints feeling very flushed in the face after taking night medications. Patient states she also felt like she had an increased heart rate. Patient denies new changes in meds, use of a B complex vitamin, or new foods or alcohol. Patient does have history of GERD, hypertension, hyperlipidemia, interstitial cystitis, complex sleep apnea, paroxysmal atrial fibrillation, accelerated hypertension, atypical chest pain, obstructive sleep apnea treated with CPAP and anxiety.. Patient has had previous ED of admissions for atypical chest pain. Patient normally follows with cardiology group at [facility].. Does have a pending stress test on Tuesday with [facility] cardiology office in [facility]. Review of Systems Review of Systems Constitutional: Denies fever or chills [] Eyes: Denies change in visual acuity, redness, or eye pain []Glasses. HENT: Denies nasal congestion or sore throat [] Respiratory: Denies cough or shortness of breath [] Cardiovascular: No additional information not addressed in HPI [] GI: Denies abdominal pain, nausea, vomiting, bloody stools or diarrhea [] : Denies dysuria or hematuria [] Musculoskeletal: Denies back pain or joint pain [] Integument: Denies rash or skin lesions []Complaints of skin "Flushing:" Neurologic: Denies headache, focal weakness or sensory changes [] Endocrine: Denies polyuria or polydipsia [] All other systems were reviewed and found to be within normal limits, except as documented in this note. Family History Family History There is a family history of to her brother's that are healthy. One older brother has coronary artery disease and had a previous myocardial infarction had 1 sister that of a brain tumor age 53. Father reportedly 83 due to C OPD and lung cancer. Mother age 36 due to Hodgkin's disease. Current Medications Current Medications See nursing for home meds Allergies Allergies Allergies Coded Allergies Type Severity Reaction Last Updated Verified Penicillins Allergy Intermediate 11/26/18 Yes Physical Exam Physical Exam Constitutional: Moderate acute emotional distress, non-toxic appearance. [] HENT: Normocephalic, atraumatic, bilateral external ears normal, oropharynx moist, no oral exudates, nose normal. [] Eyes: PERRLA, EOMI, conjunctiva normal, no discharge. [] Neck: Normal range of motion, no tenderness, supple, no stridor. [] Cardiovascular:Tachycardia, Heart rate, irregular rhythm, no murmur [PMI to Lt. Monitor shows Supraventricular rhythm] Lungs & Thorax: Bilateral breath sounds equal at apex on Auscultation Has old surgery scars. Abdomen: Bowel sounds normal, soft, no tenderness, no masses, no pulsatile masses. [] Old surgery scars. Obese Skin: Warm, dry, no erythema, no rash. [] Back: No tenderness, no CVA tenderness. [] Extremities: No tenderness, no cyanosis, no clubbing, ROM intact, no edema. [] N o cording appreciated Neurologic: Alert and oriented X 3, moves ext. on request, distal sensory, no focal deficits noted. [] Psychologic: Affect very anxious, judgement normal, mood normal. [] EKG EKG I interpretation of EKG shows a supraventricular 119 bpm. Does have findings of left axis deviation and a bifascicular block.[] RVH or repolarization abnormality. Repeat EKG 23:32= sinus rhythm at 94. Left axis deviation with a bi fascicular block. Contour abnormality. The overall morphology similar to prior EKG on file. Radiology/Procedures Radiology/Procedures [][address] [address] IMAGING REPORT Signed PATIENT: SAYMOctober ACCOUNT: [id number] : 1950 LOCATION: ER AGE: 68 SEX: F EXAM STATUS: PRE ER ORD. PHYSICIAN: FRANCESCA SHAH MD REASON: CADz hx PROCEDURE: PORTABLE CHEST 1V Single view chest dated 05/06/2019: Comparison made to 04/12/2019 Clinical Indication: Coronary artery disease. Chest pain.. Findings: Single upright portable exam of the chest was performed. Heart size and mediastinal contours are within normal limits given technique. The lungs are clear without evidence of focal consolidation. Vascular interstitium is within normal limits. Impression:: Negative portable chest. Electronically signed by: Héctor Aponte MD (05/06/2019 9:37 PM) [facility] DICTATED AND SIGNED BY: HÉCTOR APONTE MD DATE: 05/06/192136 CC: FRANCESCA SHAH MD; JULIA DAS ~ Course & Med Decision Making Course & Med Decision Making Pertinent Labs and Imaging studies reviewed. (See chart for details) Pt. admitted to Dr. Fernandez with cardiology consult for further eval and tx. Heart Score= 6 1.Complaints of being flushed 2.Tachycardia 3. Accelerated HTN 4. Anxiety 5. Mild Leukocytosis 11.1 6. Mild elevation Creat. 1.1 7. DM = Gluc 153 [] Dragon Disclaimer Dragon Disclaimer This electronic medical record was generated, in whole or in part, using a voice recognition dictation system. Departure Departure: Disposition: 01 HOME/RESIDENCE PRIOR TO ADM Condition: STABLE Referrals: JULIA DAS (PCP) Dragon Disclaimer This chart was dictated in whole or in part using Voice Recognition software in a busy, high-work load, and often noisy Emergency Department environment. It may contain unintended and wholly unrecognized errors or omissions. FRANCESCA SHAH MD May 06, 2019 20:47
[2019-05-06] MEDS ORDERED: diphenhydrAMINE 50 MG/ML VIAL IV ONE (21:30)
[2019-05-06] MEDS ORDERED: FAMOTIDINE 20 MG/2 ML VIAL IVP ONE (21:30)
[2019-05-06] MEDS ORDERED: IV RINGERS SOLUTION,LACTATED 1,000 ML IV SCH (21:30)
[2019-05-06 21:41] LABS: BASO % 0 % (0-3); EOS # 0.7 x10^3/uL (0.0-0.7); EOS % 6 % (0-3); HEMATOCRIT 39.7 % (36.0-47.0); LYMPH # 2.5 x10^3/uL (1.0-4.8); LYMPH % 23 % (24-48); MEAN CORPUSCULAR HEMOGLOBIN 28 pg (25-35); MEAN CORPUSCULAR HGB CONC 33 g/dL (31-37); MEAN CORPUSCULAR VOLUME 85 fL (79-100); MONO # 0.5 x10^3/uL (0.0-1.1); MONO % 5 % (0-9); NEUT # 7.4 x10^3uL (1.8-7.7); NEUT % 66 % (31-73); PLATELET COUNT 331 x10^3/uL (140-400); RED BLOOD COUNT 4.66 x10^6/uL (3.50-5.40); RED CELL DISTRIBUTION WIDTH 15.9 % (11.5-14.5); WHITE BLOOD COUNT 11.1 x10^3/uL (4.0-11.0)
--- NOTE | 2019-05-06 21:41 | RAD ---
Single view chest dated 05/06/2019: Comparison made to 04/12/2019 Clinical Indication: Coronary artery disease. Chest pain.. Findings: Single upright portable exam of the chest was performed. Heart size and mediastinal contours are within normal limits given technique. The lungs are clear without evidence of focal consolidation. Vascular interstitium is within normal limits. Impression:: Negative portable chest. Electronically signed by: Héctor Aponte MD (05/06/2019 9:37 PM) [facility]
[2019-05-06 21:51] LABS: ALBUMIN 3.5 g/dL (3.4-5.0); CALCIUM 8.9 mg/dL (8.5-10.1); CREATININE 1.1 mg/dL (0.6-1.0); DIRECT BILIRUBIN 0.1 mg/dL (0.0-0.2); GFR 49.2; MAGNESIUM 1.8 mg/dL (1.8-2.4); POTASSIUM 4.1 mmol/L (3.5-5.1); TOTAL BILIRUBIN 0.2 mg/dL (0.2-1.0)
[2019-05-06 21:56] LABS: BARBITURATES NEG (NEG); BENZODIAZEPINES NEG (NEG); CANNABINOIDS NEG (NEG); COCAINE NEG (NEG); METHADONE NEG (NEG); OPIATES NEG (NEG); PHENCYCLIDINE NEG (NEG)
[2019-05-06] MEDS ORDERED: LABETALOL 100 MG/20 ML VIAL. IV ONE (22:00)
[2019-05-06 22:03] LABS: AMPHETAMINE/METHAMPHETAMINE NEG (NEG)
[2019-05-06 22:07] LABS: BACTERIA,URINE 0 /HPF (0-FEW); BILIRUBIN,URINE NEG (NEG); CLARITY,URINE HAZY; COLOR,URINE YELLOW; GLUCOSE,URINE NEG (NEG); NITRITE,URINE NEG (NEG); RBC,URINE 0 /HPF (0-2); SQUAMOUS EPITHELIAL CELL,UR FEW /LPF; UROBILINOGEN,URINE 0.2 mg/dL (0.2 mg/dL)
[2019-05-06] MEDS ORDERED: LABETALOL 20 MG/4 ML DISP.SYRIN. IVP ONE ×2 (22:15→23:00)
[2019-05-06] MEDS ORDERED: ACETAMINOPHEN 325 MG TABLET PO PRN (23:00)
[2019-05-06] MEDS ORDERED: ONDANSETRON PF 4 MG/2 ML VIAL. IV PRN (23:00)
[2019-05-07 00:08] VITALS: BP 137/81
[2019-05-07] MEDS ORDERED: DILT300C23 PO (00:38)
[2019-05-07 05:50] VITALS: BP 136/71
[2019-05-07 06:21] LABS: BASO % 1 % (0-3); EOS # 0.3 x10^3/uL (0.0-0.7); EOS % 4 % (0-3); HEMATOCRIT 38.4 % (36.0-47.0); HEMOGLOBIN 12.6 g/dL (12.0-15.5); LYMPH # 2.7 x10^3/uL (1.0-4.8); LYMPH % 32 % (24-48); MEAN CORPUSCULAR HEMOGLOBIN 28 pg (25-35); MEAN CORPUSCULAR HGB CONC 33 g/dL (31-37); MEAN CORPUSCULAR VOLUME 85 fL (79-100); MONO # 0.5 x10^3/uL (0.0-1.1); MONO % 6 % (0-9); NEUT # 4.7 x10^3uL (1.8-7.7); NEUT % 57 % (31-73); PLATELET COUNT 298 x10^3/uL (140-400); RED BLOOD COUNT 4.49 x10^6/uL (3.50-5.40); RED CELL DISTRIBUTION WIDTH 15.8 % (11.5-14.5); WHITE BLOOD COUNT 8.2 x10^3/uL (4.0-11.0)
[2019-05-07 06:26] LABS: CALCIUM 8.6 mg/dL (8.5-10.1); CREATININE 0.9 mg/dL (0.6-1.0); GFR 62.1; POTASSIUM 3.9 mmol/L (3.5-5.1)
--- NOTE | 2019-05-07 07:30 | PDOC2 ---
CARDIAC CONSULT DATE OF CONSULT Date Of Consult DATE: 05/07/19 TIME: 07:24 REASON FOR CONSULT Reason for Consult Tachycardia Accelerated hypertension REFERRING PHYSICIAN Referring Physician Dr. Steele SOURCE Source: Chart review, Patient HPI History of Present Illness This is a 68 yo female who presented secondary to feeling flush and shaky yesterday evening. Thought she was having a reaction to something although denies anything new. Denies any chest pain, palpitations, dizziness, diaphoresis, SOA, or nausea/vomiting. Was given Benadryl in ED and she does report having some mild palpitations following that. EKG noted with HR 119. After patient relaxed, HR improved. Feeling well this morning. Follows with [facility]. Has outpatient stress test scheduled tomorrow. Recently had Cardizem increased to 300mg daily, although she has not starting taking this, yet. PAST MEDICAL HISTORY Past Medical History Cardiovascular: PAFIB, HTN, hyperlipidemia Pulmonary: Asthma GI: GERD Heme/Onc: Cancer (ovarian ) Psych: Anxiety, Depression Musculoskeletal: Osteoarthritis Renal/: Other (interstitial cystitis ) PAST SURGICAL HISTORY Past Surgical History: Hysterectomy FAMILY HISTORY Family History: Heart Disease (brother ), Hypertension SOCIAL HISTORY Social History Smoke: No ALCOHOL: none Drugs: None Lives: Alone CURRENT MEDICATIONS Current Medications Current Medications Lactated Ringer's 1,000 ml @ 100 mls/hr Q10H IV Last administered on 05/06/19at 21:35; Start 05/06/19 at 21:30; Stop 05/07/19 at 07:29 Famotidine (Pepcid Vial) 20 mg 1X ONCE IVP Last administered on 05/06/19at 21:35; Start 05/06/19 at 21:30; Stop 05/06/19 at 21:31; Status DC Diphenhydramine HCl (Benadryl) 50 mg 1X ONCE IV Last administered on at 21:35; Start 05/06/19 at 21:30; Stop 05/06/19 at 21:31; Status DC Labetalol HCl (Normodyne) 10 mg 1X ONCE IVP Last administered on 05/06/19at 22:08; Start 05/06/19 at 22:15; Stop 05/06/19 at 22:16; Status DC Labetalol HCl (Normodyne) 100 mg STK-MED ONCE IV ; Start 05/06/19 at 22:00; Stop 05/06/19 at 22:01; Status DC Lorazepam (Ativan Inj) 1 mg 1X ONCE IVP Last administered on 05/06/19at 22:26; Start 05/06/19 at 22:15; Stop 05/06/19 at 22:16; Status DC Labetalol HCl (Normodyne) 5 mg 1X ONCE IVP Last administered on 05/06/19at 23:00; Start 05/06/19 at 23:00; Stop 05/06/19 at 23:06; Status DC Ondansetron HCl (Zofran) 4 mg PRN Q4HRS PRN IV NAUSEA/VOMITING; Start 05/06/19 at 23:00; Stop 05/07/19 at 22:59 Acetaminophen (Tylenol) 650 mg PRN Q4HRS PRN PO FEVER; Start 05/06/19 at 23:00; Stop 05/07/19 at 22:59 Apixaban (Eliquis) 5 mg BID PO ; Start 05/07/19 at 09:00 Lorazepam (Ativan Inj) 1 mg 1X ONCE IVP ; Start 05/07/19 at 00:15; Stop 05/07/19 at 00:16; Status DC Active Scripts Active Eliquis (Apixaban) 5 Mg Tablet 5 Mg PO BID 30 Days Reported Diltiazem 24HR Cd (Diltiazem Hcl) 300 Mg Cap.er.24h 300 Mg PO DAILY Oxybutynin Chloride Er (Oxybutynin Chloride) 10 Mg Tab.er.24 10 Mg PO DAILY Lisinopril 10 Mg Tablet 10 Mg PO BID Flecainide Acetate 50 Mg Tablet 50 Mg PO BID Multivitamins (Multivitamin) 1 Each Tablet 1 Tab PO DAILY Glucosamine Chondroitin Tab (Gluc Good/Chondro Good A/Vit C/Mn) 1 Each Tablet 1 Each PO DAILY ALLERGIES Allergies: Coded Allergies: Penicillins (Verified Allergy, Intermediate, 11/26/18) ROS Review of Systems 14 point ROS conducted with pertinent positives noted above in HPI PHYSICAL EXAM Physical Exam General: Alert, Oriented X3, Cooperative, No acute distress HEENT: Atraumatic, Mucous membr. moist/pink Lungs: Clear to auscultation Heart: Regular rate, Normal S1, Normal S2, Other (2/6 systolic murmur ) Abdomen: Soft, No tenderness Extremities: No edema, Normal pulses Skin: No breakdown Neuro: Normal speech, Sensation intact Psych/Mental Status: Mental status NL, Mood NL MUSCULOSKELETAL: Osteoarthritic changes both hands VITALS Vital Signs Vital Signs Date Time Temp Pulse Resp B/P (MAP) Pulse Ox O2 Delivery O2 Flow Rate FiO2 05/07/19 05:50 98.2 77 18 136/71 (92) 96 Room Air LABS LABS Laboratory Tests Test 05/06/19 21:05 05/06/19 21:28 05/07/19 05:53 White Blood Count 11.1 x10^3/uL (4.0-11.0) 8.2 x10^3/uL (4.0-11.0) Red Blood Count 4.66 x10^6/uL (3.50-5.40) 4.49 x10^6/uL (3.50-5.40) Hemoglobin 13.0 g/dL (12.0-15.5) 12.6 g/dL (12.0-15.5) Hematocrit 39.7 % (36.0-47.0) 38.4 % (36.0-47.0) Mean Corpuscular Volume 85 fL (79-100) 85 fL (79-100) Mean Corpuscular Hemoglobin 28 pg (25-35) 28 pg (25-35) Mean Corpuscular Hemoglobin Concent 33 g/dL (31-37) 33 g/dL (31-37) Red Cell Distribution Width 15.9 % (11.5-14.5) 15.8 % (11.5-14.5) Platelet Count 331 x10^3/uL (140-400) 298 x10^3/uL (140-400) Neutrophils (%) (Auto) 66 % (31-73) 57 % (31-73) Lymphocytes (%) (Auto) 23 % (24-48) 32 % (24-48) Monocytes (%) (Auto) 5 % (0-9) 6 % (0-9) Eosinophils (%) (Auto) 6 % (0-3) 4 % (0-3) Basophils (%) (Auto) 0 % (0-3) 1 % (0-3) Neutrophils # (Auto) 7.4 x10^3uL (1.8-7.7) 4.7 x10^3uL (1.8-7.7) Lymphocytes # (Auto) 2.5 x10^3/uL (1.0-4.8) 2.7 x10^3/uL (1.0-4.8) Monocytes # (Auto) 0.5 x10^3/uL (0.0-1.1) 0.5 x10^3/uL (0.0-1.1) Eosinophils # (Auto) 0.7 x10^3/uL (0.0-0.7) 0.3 x10^3/uL (0.0-0.7) Basophils # (Auto) 0.0 x10^3/uL (0.0-0.2) 0.0 x10^3/uL (0.0-0.2) Prothrombin Time 9.9 SEC (9.4-11.4) Prothromb Time International Ratio 1.0 (0.9-1.1) Activated Partial Thromboplast Time 28 SEC (23-33) D-Dimer (Candace) 0.22 mg/L (0.00-0.50) Sodium Level 138 mmol/L (136-145) 142 mmol/L (136-145) Potassium Level 4.1 mmol/L (3.5-5.1) 3.9 mmol/L (3.5-5.1) Chloride Level 100 mmol/L (98-107) 105 mmol/L (98-107) Carbon Dioxide Level 26 mmol/L (21-32) 27 mmol/L (21-32) Anion Gap 12 (6-14) 10 (6-14) Blood Urea Nitrogen 14 mg/dL (7-20) 12 mg/dL (7-20) Creatinine 1.1 mg/dL (0.6-1.0) 0.9 mg/dL (0.6-1.0) Estimated GFR (Cockcroft-Gault) 49.2 62.1 Glucose Level 153 mg/dL (70-99) 92 mg/dL (70-99) Calcium Level 8.9 mg/dL (8.5-10.1) 8.6 mg/dL (8.5-10.1) Magnesium Level 1.8 mg/dL (1.8-2.4) Total Bilirubin 0.2 mg/dL (0.2-1.0) Direct Bilirubin 0.1 mg/dL (0.0-0.2) Aspartate Amino Transf (AST/SGOT) 30 U/L (15-37) Alanine Aminotransferase (ALT/SGPT) 59 U/L (14-59) Alkaline Phosphatase 113 U/L (46-116) Creatine Kinase 37 U/L (26-192) Troponin I Quantitative < 0.017 ng/mL (0-0.055) AW-Vmm-I-Type Natriuretic Peptide 77 pg/mL (0-124) Total Protein 7.0 g/dL (6.4-8.2) Albumin 3.5 g/dL (3.4-5.0) Lipase 113 U/L (73-393) Urine Collection Type Unknown Urine Color Yellow Urine Clarity Hazy Urine pH 6.5 Urine Specific [place] 1.015 Urine Protein Neg (NEG-TRACE) Urine Glucose (UA) Neg mg/dL (NEG) Urine Ketones (Stick) Neg mg/dL (NEG) Urine Blood Neg (NEG) Urine Nitrite Neg (NEG) Urine Bilirubin Neg (NEG) Urine Urobilinogen Dipstick 0.2 mg/dL (0.2 mg/dL) Urine Leukocyte Esterase Small (NEG) Urine RBC 0 /HPF (0-2) Urine WBC 1-4 /HPF (0-4) Urine Squamous Epithelial Cells Few /LPF Urine Transitional Epithelial Cells Occ /LPF Urine Bacteria 0 /HPF (0-FEW) Urine Opiates Screen Neg (NEG) Urine Methadone Screen Neg (NEG) Urine Barbiturates Neg (NEG) Urine Phencyclidine Screen Neg (NEG) Urine Amphetamine/Methamphetamine Neg (NEG) Urine Benzodiazepines Screen Neg (NEG) Urine Cocaine Screen Neg (NEG) Urine Cannabinoids Screen Neg (NEG) Urine Ethyl Alcohol Neg (NEG) ECHOCARDIOGRAM Echocardiogram <Conclusion> The left ventricular systolic function is normal and the ejection fraction is within normal range. The Ejection Fraction is 60-65%. There is normal LV segmental wall motion. The left atrium is moderately dilated. The aortic valve is moderately sclerotic. The aortic valve grossly appears to be trileaflet but cannot rule out bicuspid valve. Doppler and Color Flow revealed mild mitral regurgitation. Doppler and Color Flow revealed mild tricuspid regurgitation. The pulmonary artery systolic pressure is estimated at 54 mmHg. There is mild pulmonary hypertension. DATE: 09/14/16 1323 <Conclusion> The left ventricular systolic function is normal and the ejection fraction is within normal range. The Ejection Fraction is 60-65%. There is normal LV segmental wall motion. The left atrium is severely dilated. Doppler and Color Flow revealed trace tricuspid regurgitation with an estimated PAP of 53 mmHg. DATE: 04/12/19 1348 ASSESSMENT/PLAN Assessment/Plan 1. Flushed sensation 2. Accelerated hypertension; now better controlled 3. PAFIB; maintaining SR with flecainide. On CCB. Eliquis for stroke p rophylaxis. Recent echo with preserved LV systolic function 4. Hyperlipidemia 5. GERD Recommendations Resume flecainide Start Cardizem 300mg for rhythm control Resume Eliquis for stroke prophylaxis Resume lisinopril Titrate antiHTN therapy as warranted Has outpatient stress test scheduled tomorrow along with f/u with primary cardiology with [facility]. OLIVIA GUZMÁN APRN May 07, 2019 07:30
[2019-05-07] MEDS ORDERED: LISINOPRIL 10 MG TABLET PO SCH (09:00)
[2019-05-07] MEDS ORDERED: ASPIRIN ENTERIC COATED 81 MG TABLET.DR. PO SCH (09:00)
[2019-05-07] MEDS ORDERED: APIXABAN 5 MG TABLET. PO SCH ×2 (09:00→21:00)
[2019-05-07] MEDS ORDERED: FLECAINIDE 50 MG TABLET. PO SCH (09:00)
[2019-05-07] MEDS ORDERED: FAMOTIDINE 20 MG TABLET PO SCH (10:00)
[2019-05-07 11:13] VITALS: BP 165/83
[2019-05-07] MEDS ORDERED: ASPI-612 PO (12:57)
[2019-05-07] MEDS ORDERED: FAMO20TA5 PO (12:57)
--- NOTE | 2019-05-08 03:25 | EKG ---
[address] [address] Test Date: 2019-05-06 Test Time: 23:32:27 Pat Name: DANY PABLO Department: Room: Gender: F Program Development Specialist: : 1950 Requested By: FRANCESCA SHAH Order Number: [id number] Reading MD: Measurements Intervals [place] Rate: 94 P: 54 AK: 190 QRS: -37 QRSD: 144 T: 46 QT: 390 QTc: 494 Interpretive Statements SINUS RHYTHM ABNORMAL LEFT AXIS DEVIATION LEFT ANTERIOR FASCICULAR BLOCK RIGHT BUNDLE BRANCH BLOCK BIFASCICULAR BLOCK QRS(T) CONTOUR ABNORMALITY CONSIDER ANTEROLATERAL MYOCARDIAL DAMAGE ABNORMAL ECG RI6.01 No previous ECG available for comparison
--- NOTE | 2019-05-08 03:25 | EKG ---
[address] [address] Test Date: 2019-05-06 Test Time: 21:21:27 Pat Name: DANY PABLO Department: Room: Gender: F Home Paraprofessional: : 1950 Requested By: FRANCESCA SHAH Order Number: [id number] Reading MD: Measurements Intervals [place] Rate: 119 P: -140 [place]: 104 QRS: -51 QRSD: 146 T: 63 QT: 340 QTc: 486 Interpretive Statements SUPRAVENTRICULAR RHYTHM ABNORMAL LEFT AXIS DEVIATION LEFT ANTERIOR FASCICULAR BLOCK RIGHT BUNDLE BRANCH BLOCK BIFASCICULAR BLOCK RVH WITH REPOLARIZATION ABNORMALITY ABNORMAL ECG RI6.01 No previous ECG available for comparison
--- NOTE | 2019-05-08 17:41 | PHYS DOC ---
Past History Past Medical History: A-Fib, Anxiety, Arthritis, Arrhythmia, Depression, High Cholesterol, Hypertension Past Surgical History: Cancer Surgery, Hysterectomy, Other Additional Past Surgical Histo: LUMPECTOMY Smoking: Non-smoker Alcohol Use: None Drug Use: None Adult General Chief Complaint Chief Complaint: OTHER COMPLAINTS HPI HPI Patient is a 68-year-old female with history of atrial fibrillation with recent hospitalization for operative dictations who presents with palpitations and flushing starting 2 hours prior to ED arrival. Patient reports generalized flushing and feeling anxious as well as palpitations. Denies shortness of breath, chest pain, chest tightness or exertional symptoms. Patient states that since her similar to what she experienced while in the hospital. Patient's currently on flecainide and is anticoagulated on Eliquis. Denies history of CAD. Patient scheduled for outpatient cardiac stress test in 2 weeks. Patient was evaluated for her PCP today for anxiety and instructed to start Lexapro which she has yet to start taking. No other acute symptoms or complaints.] Review of Systems Review of Systems Review of symptoms as per history of present illness. All other review symptoms are negative. All other systems were reviewed and found to be within normal limits, except as documented in this note. Current Medications Current Medications Current Medications Medications (Trade) Dose Ordered Sig/Evangelina Start Time Stop Time Status Last Admin Dose Admin Acetaminophen (Tylenol) 650 mg PRN Q4HRS PRN 05/06/19 23:00 05/07/19 13:52 DC Diphenhydramine HCl (Benadryl) 50 mg 1X ONCE 05/06/19 21:30 05/06/19 21:31 DC 05/06/19 21:35 50 MG Famotidine (Pepcid Vial) 20 mg 1X ONCE 05/06/19 21:30 05/06/19 21:31 DC 05/06/19 21:35 20 MG Labetalol HCl (Normodyne) 5 mg 1X ONCE 05/06/19 23:00 05/06/19 23:06 DC 05/06/19 23:00 5 MG Lactated Ringer's 1,000 ml @ 100 mls/hr Q10H 05/06/19 21:30 05/07/19 07:29 DC 05/06/19 21:35 100 MLS/HR Lorazepam (Ativan Inj) 1 mg 1X ONCE 05/06/19 22:15 05/06/19 22:16 DC 05/06/19 22:26 1 MG Ondansetron HCl (Zofran) 4 mg PRN Q4HRS PRN 05/06/19 23:00 05/07/19 08:41 DC Allergies Allergies Allergies Coded Allergies Type Severity Reaction Last Updated Verified Penicillins Allergy Intermediate 11/26/18 Yes Physical Exam Physical Exam Constitutional: Well developed, well nourished, no acute distress, non-toxic appearance. [] HENT: Normocephalic, atraumatic, bilateral external ears normal, oropharynx moist, no oral exudates, nose normal. [] Eyes: PERRLA, EOMI, conjunctiva normal, no discharge. [] Neck: Normal range of motion, no tenderness, supple, no stridor. [] Cardiovascular:Heart rate regular rhythm, no murmur [] Lungs & Thorax: Bilateral breath sounds clear to auscultation [] Abdomen: Bowel sounds normal, soft, no tenderness, no masses, no pulsatile masses. [] Skin: Warm, dry, no erythema, no rash. [] Back: No tenderness, no CVA tenderness. [] Extremities: No tenderness, no cyanosis, no clubbing, ROM intact, no edema. [] Neurologic: Alert and oriented X 3, normal motor function, normal sensory function, no focal deficits noted. [] Psychologic: Affect normal, judgement normal, mood normal. [] Current Patient Data Vital Signs Vital Signs Date Time Temp Pulse Resp B/P (MAP) Pulse Ox O2 Delivery O2 Flow Rate FiO2 05/07/19 11:13 98.2 93 20 165/83 (110) 95 Room Air EKG EKG [EKG: Reviewed] Radiology/Procedures Radiology/Procedures [] Course & Med Decision Making Course & Med Decision Making Pertinent Labs and Imaging studies reviewed. (See chart for details) [] Dragon Disclaimer Dragon Disclaimer This electronic medical record was generated, in whole or in part, using a voice recognition dictation system. Departure Departure: Impression: Primary Impression: Tachycardia Disposition: ADMITTED INPATIENT Condition: GUARDED Patient Instructions: Supraventricular Tachycardia, [id number], Atrial Fibrillation, [id number] Additional Instructions: Admit Dr. KHALIL- AND CARDIOLOGY CONSULT Scripts Famotidine (FAMOTIDINE) 20 Mg Tablet 20 MG PO BID for GERD, #90 TAB 3 Refills Prov: SHERRY ALVARENGA MD 05/07/19 Aspirin (ASPIRIN EC) 81 Mg Tablet. 81 MG PO [id number] for anticoagulant for 90 Days, #90 TAB 3 Refills Prov: SHERRY ALVARENGA MD 05/07/19 DEVIN MORLEY DO May 08, 2019 17:41
--- NOTE | 2019-05-15 10:37 | HP ---
ADMIT DATE: 05/07/2019 HISTORY OF PRESENT ILLNESS: A 68-year-old female, apparently a couple of visits to the Emergency Room with flushing sensation. The patient notes they lasted for approximately 30 minutes. The patient had taken some clonazepam, fell asleep, felt better for a while, but apparently she did not take the Lexapro that was ordered for her. She was worried about interaction with flecainide. She was on a Holter monitor for arrhythmias with a history of atrial fibrillation. She denies chest pain. The episodes have been more associated the last few days with eating. The patient notes that the episodes started soon after she eats. She has a decreased appetite overall, is only eating small amounts. Because of this recurrent flushing and the possibility of angioedema, the patient was admitted to the hospital for observation. PAST MEDICAL HISTORY: Includes that of atrial fibrillation with RVR. The patient had anticoagulant therapy, hypercholesterolemia, hemorrhoids, reproductive disorders, cervical anomaly and cervical cancer in 1987, lumpectomy, hysterectomy, urinary tract infections, interstitial cystitis, urinary urgency, musculoskeletal disorders and depression. FAMILY HISTORY: Sister with brain cancer. Brother with hypertension. Father with lung cancer, mother with Hodgkin's disease. ALLERGIES: ALKYLAMINE ANTIHISTAMINES and various other antihistamines including PIPERAZINE and PIPERIDINE as well as PENICILLINS. SOCIAL HISTORY: The patient denies smoking, alcohol or drug use. MEDICATIONS: The patient's medications were reviewed including that of Eliquis 5 mg b.i.d., flecainide 50 mg b.i.d., diltiazem 300 mg daily, lisinopril 10, aspirin, famotidine 20 mg b.i.d., oxybutynin 10 mg daily, multivitamin and glucosamine chondroitin. REVIEW OF SYSTEMS: The patient denies any headaches, visual changes, blurred vision, double vision. Denies any shortness of breath. She denies any abdominal pain, nausea, vomiting, change in bowel habits. Denies diarrhea. Denies rashes, skin lesions. Has a mild headache ____. PHYSICAL EXAMINATION: GENERAL: This is a pleasant white female, in no apparent distress. VITAL SIGNS: Blood pressure 148/56, respiratory rate 20, pulse 86, afebrile. HEENT: The patient's head was atraumatic, normocephalic. LUNGS: Diminished, but clear. CARDIOVASCULAR: Regular sinus rhythm, S1, S2. The patient's lips and tongue appear to be basically normal. ABDOMEN: Soft, nontender. No rebound or guarding. Positive bowel sounds. No hepatosplenomegaly. EXTREMITIES: No clubbing or cyanosis. No edema. NEUROLOGIC: The patient was alert and oriented x 3. Speech fluent. The patient appropriate. Cranial nerves 2-12 are grossly intact. LABORATORY DATA: CBC was all within normal range. Chemistries did show an elevated blood sugar of 170. Slight elevation of liver enzymes, AST of 30, ALT of 66. Albumin slightly low at 3.3. UA showed 11-20 white blood cells. ASSESSMENT AND PLAN: The patient was admitted for further evaluation and treatment ____ patient's facial flushing, rule out angioedema. The patient did have a urinary tract infection and she has been on levofloxacin for that. The patient was admitted for observation. Continue on fluids, antibiotics IV and continue to monitor for any change in vital signs or flushing situation. SHERRY ALVARENGA MD DR: SELENA/jagdeep JOB#: [id number] / [id number]
== END 2019-05-07 13:52 | disposition home or self-care (01) ==
LOC: ER 20:44 → 1 SOUTH 23:00 → INTOOBSV 23:00
PROVIDERS: ADMIT Hospitalist; ATTEND Family Medicine
DX: R00.0 Tachycardia, unspecified (principal); I10 Essential (primary) hypertension; F41.9 Anxiety disorder, unspecified; D72.829 Elevated white blood cell count, unspecified; E11.9 Type 2 diabetes mellitus without complications; R23.2 Flushing; I48.91 Unspecified atrial fibrillation; M19.90 Unspecified osteoarthritis, unspecified site; I49.9 Cardiac arrhythmia, unspecified; F32.9 Major depressive disorder, single episode, unspecified; E78.00 Pure hypercholesterolemia, unspecified; Z90.710 Acquired absence of both cervix and uterus
CPT/HCPCS: 36415; 71045; 80048; 80076; 80307; 81001; 82550; 83690; 83735; 83880; 84484; 85025; 85379; 85610; 85730; 87086; 93005; 96374; 96375; 96376; 99284; G0238; G0378; J1200; J2060; J3490; J7120; G0379

== ENCOUNTER 2019-05-08 17:13 | Emergency (ER) | payer MEDICARE ==
[~2019-05-08] VITALS: Ht 157.5 cm; Wt 93.0 kg
[~2019-05-08 17:13] MED LIST changes: +ASPI-612 PO; +DILT300C23 PO; +FAMO20TA5 PO
[2019-05-08] MEDS ORDERED: LORazepam 1 MG TABLET PO ONE (18:15)
--- NOTE | 2019-05-08 18:20 | PHYS DOC ---
Past History Past Medical History: A-Fib, Anxiety, Arthritis, Arrhythmia, Depression, High Cholesterol, Hypertension (DEVIN MORLEY DO) Past Surgical History: Cancer Surgery, Hysterectomy, Other Additional Past Surgical Histo: LUMPECTOMY (DEVIN MORLEY DO) Smoking: Non-smoker Alcohol Use: None Drug Use: None (DEVIN MORLEY DO) Adult General Chief Complaint Chief Complaint: FEVER HPI HPI Patient is a 68-year-old female with history of A. fib currently on Eliquis and flecainide who presents with palpitations, flushing starting 2 hours prior to ED. Patient ate she had symptoms 2 days ago was admitted to the hospital overnight reviewed by cardiology. Patient has an outpatient stress test scheduled in 2 weeks. Patient denies chest pain, shortness of breath or exertional symptoms.[] (DEVIN MORLEY DO) Review of Systems Review of Systems Review symptoms as per history of present illness. All other review symptoms are negative. All other systems were reviewed and found to be within normal limits, except as documented in this note. (DEVIN MORLEY DO) Current Medications Current Medications Current Medications Medications (Trade) Dose Ordered Sig/Evangelina Start Time Stop Time Status Last Admin Dose Admin Lorazepam (Ativan) 1 mg 1X ONCE 05/08/19 18:15 05/08/19 18:16 (DEVIN MORLEY DO) Allergies Allergies Allergies Coded Allergies Type Severity Reaction Last Updated Verified Penicillins Allergy Intermediate 11/26/18 Yes Uncoded Allergies Type Severity Reaction Last Updated Verified antihistamine Adverse Reaction Unknown Palpitations 05/08/19 (DEVIN MORLEY DO) Physical Exam Physical Exam Constitutional: Well developed, well nourished, lies flushing. [] HENT: Normocephalic, atraumatic, bilateral external ears normal, oropharynx moist, no oral exudates, nose normal. [] Eyes: PERRLA, EOMI, conjunctiva normal, no discharge. [] Neck: Normal range of motion, no tenderness, supple, no stridor. [] Cardiovascular:Heart rate regular rhythm, no murmur. [] Lungs & Thorax: Bilateral breath sounds clear to auscultation [] Abdomen: Bowel sounds normal, soft, no tenderness. [] Skin: Warm, dry, no erythema, no rash. [] Back: No tenderness. [] Extremities: No tenderness. [] Neurologic: Alert and oriented X 3, normal motor function, normal sensory function, no focal deficits noted. [] Psychologic: Affect anxious. [] (DEVIN MORLEY DO) Current Patient Data Vital Signs Vital Signs Date Time Temp Pulse Resp B/P (MAP) Pulse Ox O2 Delivery O2 Flow Rate FiO2 05/08/19 17:35 98.1 106 16 97 Room Air (DEVIN MORLEY DO) EKG EKG [EKG: Sinus rhythm, right bundle branch block, rate 98. No acute ST-T wave changes.] (DEVIN MORLEY DO) Radiology/Procedures Radiology/Procedures [] (DEVIN MORLEY DO) Course & Med Decision Making Course & Med Decision Making Pertinent Labs and Imaging studies reviewed. (See chart for details) [Patient clinically anxious. Ativan given. Work up in progress. Care endorsed tpo oncoming at 18:00.] (DEVIN MORLEY DO) Course & Med Decision Making ".. I not feeling as bad as the other night... but I had hugh same symptoms... Flushed.. Fast Heart Rate.. My BP was up.. I just hate to have to come back in here.. I did see Cristy Fraser APRN the other day when I was admitted..for cardiology . They canceled my stress test for Tuesday and rescheduled it for 05/22.. because the thought I would be too tired. .. I can't figure out why I keep having these problems....? " I have not started the increase Cardizem yet..." "I am taking all my other meds as directed... the Flecainide, Eliquis, Lisinopril.. eect. ... " Pt. requesting Discharge 2100 hrs. ".. Ever since my diet two years ago.. I ve been anxious.... I think some of this related to that.. .I am been just getting over a cold.. and I always have problems with interstitial cystitis.. I just got to be well enough to go with my younger son... To see milder sun up by [place]--- it's actually and [place]... this coming Tuesday... If the heart enzymes look okay... I just want to go home.. I got too much stuff that needs to be done before ...." Pt. insistent on discharge. Repeat EKG at 2122- no acute changes Repeat Trop. normal range. Pt. Exhibits UCAR capacity. Will discharge per her request. Pt. to increase Cardizem as previously directed. Impression: 1. Flushed Sensation 2. Tachycardia 3. Accelerated hypertension 4. Anxiety 5. Mild leukocytosis of 11.9 Depressed Lymph 13 6. Diabetes- glucose 146 7. BNP equals 237 (FRANCESCA SHAH MD) Dragon Disclaimer Dragon Disclaimer This electronic medical record was generated, in whole or in part, using a voice recognition dictation system. (DEVIN MORLEY DO) Departure Departure: Disposition: HOME/RESIDENCE PRIOR TO ADM Condition: STABLE Referrals: JULIA DAS (PCP) Vitor Disclaimer This chart was dictated in whole or in part using Voice Recognition software in a busy, high-work load, and often noisy Emergency Department environment. It may contain unintended and wholly unrecognized errors or omissions. (FRANCESCA SHAH MD) DEVIN MORLEY DO May 08, 2019 18:20 FRANCESCA SHAH MD May 08, 2019 19:28
[2019-05-08 18:26] LABS: BASO # 0.1 x10^3/uL (0.0-0.2); BASO % 1 % (0-3); EOS # 0.2 x10^3/uL (0.0-0.7); EOS % 2 % (0-3); HEMATOCRIT 40.2 % (36.0-47.0); HEMOGLOBIN 13.2 g/dL (12.0-15.5); LYMPH # 1.5 x10^3/uL (1.0-4.8); LYMPH % 13 % (24-48); MEAN CORPUSCULAR HEMOGLOBIN 28 pg (25-35); MEAN CORPUSCULAR HGB CONC 33 g/dL (31-37); MEAN CORPUSCULAR VOLUME 85 fL (79-100); MONO # 0.5 x10^3/uL (0.0-1.1); MONO % 4 % (0-9); NEUT # 9.6 x10^3uL (1.8-7.7); NEUT % 81 % (31-73); PLATELET COUNT 321 x10^3/uL (140-400); RED BLOOD COUNT 4.72 x10^6/uL (3.50-5.40); RED CELL DISTRIBUTION WIDTH 16.1 % (11.5-14.5); WHITE BLOOD COUNT 11.9 x10^3/uL (4.0-11.0)
[2019-05-08] MEDS ORDERED: dilTIAZem HCL 30 MG TABLET PO ONE (19:45)
[2019-05-08 20:16] LABS: ALBUMIN 3.6 g/dL (3.4-5.0); CALCIUM 8.9 mg/dL (8.5-10.1); CREATININE 0.9 mg/dL (0.6-1.0); GFR 62.1; MAGNESIUM 1.9 mg/dL (1.8-2.4); POTASSIUM 4.1 mmol/L (3.5-5.1); TOTAL BILIRUBIN 0.3 mg/dL (0.2-1.0); TOTAL PROTEIN 7.3 g/dL (6.4-8.2)
--- NOTE | 2019-05-08 21:46 | EKG ---
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
[2019-05-08 22:35] VITALS: BP 155/70
--- NOTE | 2019-05-09 03:38 | RAD ---
CHEST AP ONLY INDICATION: Dyspnea. COMPARISON STUDY: 05/06/2019. FINDINGS: Lungs: Normal lung volume. No pulmonary mass or consolidation. The tracheobronchial tree and hilar structures are normal. Pleura: No pleural effusion or pneumothorax. Heart and Mediastinum: The cardiomediastinal silhouette is normal. The great vessels of the thorax are normal. IMPRESSION: No acute cardiopulmonary process. Electronically signed by: Yinka Jolly MD (05/09/2019 3:35 AM) [facility]
== END 2019-05-08 23:08 | disposition home or self-care (01) ==
LOC: ER 17:13
DX: I10 Essential (primary) hypertension (principal); R23.2 Flushing; F41.9 Anxiety disorder, unspecified; D72.829 Elevated white blood cell count, unspecified; E11.9 Type 2 diabetes mellitus without complications; I48.91 Unspecified atrial fibrillation; M19.90 Unspecified osteoarthritis, unspecified site; F32.9 Major depressive disorder, single episode, unspecified; E78.00 Pure hypercholesterolemia, unspecified; Z88.0 Allergy status to penicillin
CPT/HCPCS: 36415; 71045; 80053; 83735; 83880; 84443; 84484; 85025; 93005; 99285

== ENCOUNTER 2019-05-10 18:48 | Emergency (ER) | payer MEDICARE ==
[~2019-05-10] VITALS: Ht 157.5 cm; Wt 93.0 kg
[2019-05-10] MEDS ORDERED: IV NORMAL SALINE 1,000ML 1,000 ML IV ONE (19:00)
[2019-05-10] MEDS ORDERED: ONDANSETRON PF 4 MG/2 ML VIAL. IVP ONE (19:15)
[2019-05-10] MEDS ORDERED: hydrOXYzine HCL 10 MG TABLET PO STA (19:30)
--- NOTE | 2019-05-10 19:30 | PHYS DOC ---
Past History Past Medical History: A-Fib, Anxiety, Arthritis, Arrhythmia, Depression, High Cholesterol, Hypertension Past Surgical History: Cancer Surgery, Hysterectomy, Other Additional Past Surgical Histo: LUMPECTOMY Smoking: Non-smoker Alcohol Use: None Drug Use: None Adult General Chief Complaint Chief Complaint: NAUSEA/VOMITING/DIARRHEA HPI HPI 68-year-old female returns emergency room with continued concern of a flushing sensation. The patient had over this morning that lasted about 30 minutes. She took a clonazepam and fell asleep. After she woke up, she felt better for a while, but then the feeling came back. Her primary physician wants her to take Lexapro, but she did not take it today She is worried about its interaction flecainide. She's had no other recent medication changes. She is on a Holter monitor to look for arrhythmias. She has a known A. fib history. She denies chest pain or shortness of breath. The episodes have been more associated with eating the last couple days. Patient has not noticed this before. The episode started soon after she finishes eating. She has decreased appetite overall and is only eating small amounts. She denies fever or chills. Review of Systems Review of Systems Constitutional: Flushing feeling. Denies fever or chills [] Eyes: Denies change in visual acuity, redness, or eye pain [] HENT: Denies nasal congestion or sore throat [] Respiratory: Denies cough or shortness of breath [] Cardiovascular: No additional information not addressed in HPI [] GI: Denies abdominal pain, nausea, vomiting, bloody stools or diarrhea [] : Denies dysuria or hematuria [] Musculoskeletal: Denies back pain or joint pain [] Integument: Denies rash or skin lesions [] Neurologic: Mild headache. Denies focal weakness or sensory changes [] Endocrine: Denies polyuria or polydipsia [] All other systems were reviewed and found to be within normal limits, except as documented in this note. Current Medications Current Medications Current Medications Medications (Trade) Dose Ordered Sig/Evangelina Start Time Stop Time Status Last Admin Dose Admin Ondansetron HCl (Zofran) 4 mg 1X ONCE 05/10/19 19:15 05/10/19 19:16 DC Sodium Chloride 1,000 ml @ 1,000 mls/hr 1X ONCE 05/10/19 19:00 05/10/19 19:59 Allergies Allergies Allergies Coded Allergies Type Severity Reaction Last Updated Verified Penicillins Allergy Intermediate 11/26/18 Yes Uncoded Allergies Type Severity Reaction Last Updated Verified antihistamine Adverse Reaction Unknown Palpitations 05/08/19 Physical Exam Physical Exam Constitutional: Well developed, obese, well nourished, no acute distress, non- toxic appearance. [] HENT: Normocephalic, atraumatic, bilateral external ears normal, oropharynx moist, no oral exudates, nose normal. [] Eyes: PERRLA, EOMI, conjunctiva normal, no discharge. [] Neck: Normal range of motion, no tenderness, supple, no stridor. [] Cardiovascular:Heart rate regular rhythm, 2/6 systolic murmur [] Lungs & Thorax: Bilateral breath sounds clear to auscultation [] Abdomen: Bowel sounds normal, soft, no tenderness, no masses, no pulsatile masses. [] Skin: Warm, dry, no erythema, no rash. [] Back: No tenderness, no CVA tenderness. [] Extremities: No tenderness, no cyanosis, no clubbing, ROM intact, no edema. [] Neurologic: Alert and oriented X 3, normal motor function, normal sensory function, no focal deficits noted. [] Psychologic: Affect normal, judgement normal, mood concerned. [] EKG EKG [] Radiology/Procedures Radiology/Procedures [] Course & Med Decision Making Course & Med Decision Making Pertinent Labs and Imaging studies reviewed. (See chart for details) The patient's labs are unremarkable. Her urinalysis is significant for infection. I will treat her with levofloxacin due to her other allergies. I will also discharge her on another 4 days of levofloxacin at home. I've advised she continue her Lexapro and Klonopin as directed by her primary physician. She is stable for discharge at this time. [] Dragon Disclaimer Dragon Disclaimer This electronic medical record was generated, in whole or in part, using a voice recognition dictation system. Departure Departure: Impression: Primary Impression: Facial flushing Additional Impression: UTI (urinary tract infection) Disposition: 01 HOME, SELF-CARE Condition: STABLE Referrals: JULIA DAS (PCP) Patient Instructions: Urinary Tract Infection, Wrgu-ro-Wshu Scripts Levofloxacin (LEVOFLOXACIN) 750 Mg Tablet 1 TAB PO DAILY for UTI for 4 Days, #4 TAB Prov: DEVIN SPRAGUE DO 05/10/19 Problem Qualifiers DEVIN SPRAGUE DO May 10, 2019 19:30
[2019-05-10 19:50] LABS: BASO % 0 % (0-3); EOS # 0.2 x10^3/uL (0.0-0.7); EOS % 2 % (0-3); HEMATOCRIT 38.4 % (36.0-47.0); HEMOGLOBIN 12.7 g/dL (12.0-15.5); LYMPH # 2.1 x10^3/uL (1.0-4.8); LYMPH % 22 % (24-48); MEAN CORPUSCULAR HEMOGLOBIN 28 pg (25-35); MEAN CORPUSCULAR HGB CONC 33 g/dL (31-37); MEAN CORPUSCULAR VOLUME 84 fL (79-100); MONO # 0.5 x10^3/uL (0.0-1.1); MONO % 6 % (0-9); NEUT # 6.6 x10^3uL (1.8-7.7); NEUT % 70 % (31-73); PLATELET COUNT 330 x10^3/uL (140-400); RED BLOOD COUNT 4.57 x10^6/uL (3.50-5.40); RED CELL DISTRIBUTION WIDTH 15.6 % (11.5-14.5); WHITE BLOOD COUNT 9.4 x10^3/uL (4.0-11.0)
[2019-05-10 19:54] LABS: BILIRUBIN,URINE NEG (NEG); CLARITY,URINE CLOUDY; COLOR,URINE STRAW; GLUCOSE,URINE NEG (NEG); NITRITE,URINE NEG (NEG); UROBILINOGEN,URINE 0.2 mg/dL (0.2 mg/dL)
[2019-05-10 19:55] LABS: AMORPHOUS SEDIMENT,UR PRESENT /HPF; BACTERIA,URINE FEW /HPF (0-FEW); RBC,URINE OCC /HPF (0-2); SQUAMOUS EPITHELIAL CELL,UR FEW /LPF
[2019-05-10 20:09] LABS: ALBUMIN 3.3 g/dL (3.4-5.0); ALBUMIN/GLOBULIN RATIO 0.8 (1.0-1.7); CALCIUM 8.6 mg/dL (8.5-10.1); CREATININE 0.9 mg/dL (0.6-1.0); GFR 62.1; POTASSIUM 3.7 mmol/L (3.5-5.1); TOTAL BILIRUBIN 0.3 mg/dL (0.2-1.0); TOTAL PROTEIN 7.3 g/dL (6.4-8.2)
[2019-05-10] MEDS ORDERED: LEVO750T5 PO (20:53)
[2019-05-10] MEDS ORDERED: LORazepam 1 MG TABLET PO ONE (21:00)
[2019-05-10 22:32] VITALS: BP 122/53
--- NOTE | 2019-05-14 23:22 | HP ---
ADMIT DATE: 05/10/2019 HISTORY OF PRESENT ILLNESS: A 68-year-old female, apparently a couple of visits to the Emergency Room with flushing sensation. The patient notes they lasted for approximately 30 minutes. The patient had taken some clonazepam, fell asleep, felt better for a while, but apparently she did not take the Lexapro that was ordered for her. She was worried about interaction with flecainide. She was on a Holter monitor for arrhythmias with a history of atrial fibrillation. She denies chest pain. The episodes have been more associated the last few days with eating. The patient notes that the episodes started soon after she eats. She has a decreased appetite overall, is only eating small amounts. Because of this recurrent flushing and the possibility of angioedema, the patient was admitted to the hospital for observation. PAST MEDICAL HISTORY: Includes that of atrial fibrillation with RVR. The patient had anticoagulant therapy, hypercholesterolemia, hemorrhoids, reproductive disorders, cervical anomaly and cervical cancer in 1987, lumpectomy, hysterectomy, urinary tract infections, interstitial cystitis, urinary urgency, musculoskeletal disorders and depression. FAMILY HISTORY: Sister with brain cancer. Brother with hypertension. Father with lung cancer, mother with Hodgkin's disease. ALLERGIES: ALKYLAMINE ANTIHISTAMINES and various other antihistamines including PIPERAZINE and PIPERIDINE as well as PENICILLINS. SOCIAL HISTORY: The patient denies smoking, alcohol or drug use. MEDICATIONS: The patient's medications were reviewed including that of Eliquis 5 mg b.i.d., flecainide 50 mg b.i.d., diltiazem 300 mg daily, lisinopril 10, aspirin, famotidine 20 mg b.i.d., oxybutynin 10 mg daily, multivitamin and glucosamine chondroitin. REVIEW OF SYSTEMS: The patient denies any headaches, visual changes, blurred vision, double vision. Denies any shortness of breath. She denies any abdominal pain, nausea, vomiting, change in bowel habits. Denies diarrhea. Denies rashes, skin lesions. Has a mild headache ____. PHYSICAL EXAMINATION: GENERAL: This is a pleasant white female, in no apparent distress. VITAL SIGNS: Blood pressure 148/56, respiratory rate 20, pulse 86, afebrile. HEENT: The patient's head was atraumatic, normocephalic. LUNGS: Diminished, but clear. CARDIOVASCULAR: Regular sinus rhythm, S1, S2. The patient's lips and tongue appear to be basically normal. ABDOMEN: Soft, nontender. No rebound or guarding. Positive bowel sounds. No hepatosplenomegaly. EXTREMITIES: No clubbing or cyanosis. No edema. NEUROLOGIC: The patient was alert and oriented x 3. Speech fluent. The patient appropriate. Cranial nerves 2-12 are grossly intact. LABORATORY DATA: CBC was all within normal range. Chemistries did show an elevated blood sugar of 170. Slight elevation of liver enzymes, AST of 30, ALT of 66. Albumin slightly low at 3.3. UA showed 11-20 white blood cells. ASSESSMENT AND PLAN: The patient was admitted for further evaluation and treatment ____ patient's facial flushing, rule out angioedema. The patient did have a urinary tract infection and she has been on levofloxacin for that. The patient was admitted for observation. Continue on fluids, antibiotics IV and continue to monitor for any change in vital signs or flushing situation. SHERRY ALVARENGA MD DR: SELENA/jagdeep JOB#: [id number] / [id number]
== END 2019-05-10 22:35 | disposition home or self-care (01) ==
LOC: ER 18:48
DX: R23.2 Flushing (principal); N39.0 Urinary tract infection, site not specified; R51 Headache; I48.91 Unspecified atrial fibrillation; F41.9 Anxiety disorder, unspecified; M19.90 Unspecified osteoarthritis, unspecified site; F32.9 Major depressive disorder, single episode, unspecified; E78.00 Pure hypercholesterolemia, unspecified; I10 Essential (primary) hypertension; Z88.0 Allergy status to penicillin
CPT/HCPCS: 36415; 80053; 81001; 83690; 85025; 87086; 96365; 96366; 96375; 99285; J1956; J2405; 96361; J7030

== ENCOUNTER → 2019-06-07 | Outpatient (CLI) | payer MEDICARE ==
[2019-05-10 22:32] VITALS: BP 122/53
[~2019-06-07] MED LIST changes: +LEVO750T5 PO; +OXYB-36 PO; -OXYB10TA2 PO; +OXYB10TA26 PO; -OXYB5TAB3 PO
--- NOTE | 2019-06-07 11:57 | RAD ---
EXAM: Renal sonogram. HISTORY: Flank pain. TECHNIQUE: Sonographic imaging of the kidneys and bladder was performed. COMPARISON: None. FINDINGS: The right kidney measures 11.0 cm [id number]. The left kidney measures 11.2 cm [id number]. No solid or cystic renal lesion is seen. There is no hydronephrosis. The ureteral jets are not seen. The bladder is otherwise unremarkable. IMPRESSION: Sonographically unremarkable kidneys. Electronically signed by: Dimple Douglas MD (06/07/2019 11:54 AM) [place] [id number]
== END | disposition home or self-care (01) ==
LOC: US 11:12
PROVIDERS: ATTEND Physician Assistant Medical
DX: R10.9 Unspecified abdominal pain (principal)
CPT/HCPCS: 76770

== ENCOUNTER → 2019-06-22 | Outpatient (CLI) | payer MEDICARE ==
--- NOTE | 2019-06-22 10:46 | RAD ---
EXAM: Soft tissue ultrasound, left groin. HISTORY: Persistent drainage status post drainage of a left groin abscess. COMPARISON: None. FINDINGS: Sonography of the site of concern in the left groin was performed. This reveals an immediately subcutaneous heterogeneous collection measuring 10 x 9 x 6 mm. No extension into the deeper tissues is appreciated. IMPRESSION: 1. 10 mm subcutaneous collection consistent with a small abscess. Electronically signed by: Reynold Santos MD (06/22/2019 10:43 AM) [facility]
== END | disposition home or self-care (01) ==
LOC: US 08:56
PROVIDERS: ATTEND Surgery
DX: L02.214 Cutaneous abscess of groin (principal)
CPT/HCPCS: 76881

== ENCOUNTER 2019-07-09 14:55 | Observation (INO) | payer MEDICARE ==
[~2019-07-09] VITALS: Ht 157.5 cm; Wt 98.9 kg
[2019-07-09] MEDS ORDERED: METOPROLOL TARTRATE 5 MG/5 ML VIAL. IV ONE ×2 (15:15→16:15)
[2019-07-09 15:25] LABS: BASO % 1 % (0-3); EOS # 0.4 x10^3/uL (0.0-0.7); EOS % 5 % (0-3); HEMATOCRIT 39.4 % (36.0-47.0); HEMOGLOBIN 12.7 g/dL (12.0-15.5); LYMPH # 2.2 x10^3/uL (1.0-4.8); LYMPH % 29 % (24-48); MEAN CORPUSCULAR HEMOGLOBIN 28 pg (25-35); MEAN CORPUSCULAR HGB CONC 32 g/dL (31-37); MEAN CORPUSCULAR VOLUME 85 fL (79-100); MONO # 0.5 x10^3/uL (0.0-1.1); MONO % 6 % (0-9); NEUT # 4.6 x10^3uL (1.8-7.7); NEUT % 60 % (31-73); PLATELET COUNT 332 x10^3/uL (140-400); RED BLOOD COUNT 4.61 x10^6/uL (3.50-5.40); RED CELL DISTRIBUTION WIDTH 15.7 % (11.5-14.5); WHITE BLOOD COUNT 7.7 x10^3/uL (4.0-11.0)
[2019-07-09 15:31] LABS: CALCIUM 8.7 mg/dL (8.5-10.1); CREATININE 0.9 mg/dL (0.6-1.0); GFR 62.1; POTASSIUM 3.7 mmol/L (3.5-5.1)
--- NOTE | 2019-07-09 15:31 | EKG ---
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
--- NOTE | 2019-07-09 15:41 | RAD ---
Examination: PORTABLE CHEST 1V History: Palpitations Comparison/Correlation: 05/08/2019 AP view of the chest Findings: Portable upright frontal view of the chest were obtained. Heart size and pulmonary vasculature are normal. No infiltrate or pleural effusion. No pneumothorax. Bony structures are unremarkable. Impression: No acute process. Electronically signed by: Jhon Clarke MD (07/09/2019 3:38 PM) [facility]
[2019-07-09 15:43] LABS: ALBUMIN 3.2 g/dL (3.4-5.0); ALBUMIN/GLOBULIN RATIO 0.8 (1.0-1.7); MAGNESIUM 1.7 mg/dL (1.8-2.4); TOTAL BILIRUBIN 0.2 mg/dL (0.2-1.0); TOTAL PROTEIN 7.1 g/dL (6.4-8.2)
[2019-07-09] MEDS ORDERED: MAGNESIUM SULFATE 1GM 100 ML IV ONE (17:00)
--- NOTE | 2019-07-09 18:03 | PHYS DOC ---
Past History Past Medical History: A-Fib, Anxiety, Arthritis, Arrhythmia, Depression, High Cholesterol, Hypertension Past Surgical History: Cancer Surgery, Hysterectomy, Other Additional Past Surgical Histo: LUMPECTOMY Smoking: Non-smoker Alcohol Use: None Drug Use: None Adult General Chief Complaint Chief Complaint: TREMORS HPI HPI Patient is a 68-year-old female who was brought here by EMS from home due to heart palpitation, feeling shaky, heart flutters started at noon today. Patient has history of atrial fibrillation, she is on Eliquis, Cardizem, flecainide. Patient denies any chest pain, no cough, no fever. Patient denies any abdominal pain, no nausea vomiting. Patient feels weak and dizzy. Patient denies any headache, no slurred speech, no blurry vision. She had been taken her medication as directed. Review of Systems Review of Systems Constitutional: Denies fever or chills [] Eyes: Denies change in visual acuity, redness, or eye pain [] HENT: Denies nasal congestion or sore throat [] Respiratory: Denies cough or shortness of breath [] Cardiovascular: No additional information not addressed in HPI [] GI: Denies abdominal pain, nausea, vomiting, bloody stools or diarrhea [] : Denies dysuria or hematuria [] Musculoskeletal: Denies back pain or joint pain [] Integument: Denies rash or skin lesions [] Neurologic: Denies headache, focal weakness or sensory changes. FEELING WEAK, TIRED, SHAKY, TREMOR... Endocrine: Denies polyuria or polydipsia [] All other systems were reviewed and found to be within normal limits, except as documented in this note. Current Medications Current Medications Current Medications Medications (Trade) Dose Ordered Sig/Evangelina Start Time Stop Time Status Last Admin Dose Admin Magnesium Sulfate 100 ml @ 100 mls/hr 1X ONCE 07/09/19 17:00 07/09/19 17:59 DC 07/09/19 16:41 100 MLS/HR Metoprolol Tartrate (Lopressor Vial) 5 mg 1X ONCE 07/09/19 16:15 07/09/19 16:16 DC 07/09/19 16:20 5 MG Allergies Allergies Allergies Coded Allergies Type Severity Reaction Last Updated Verified Penicillins Allergy Intermediate 11/26/18 Yes levofloxacin Allergy Unknown 07/09/19 Yes Antihistamines - Alkylamine Adverse Reaction Intermediate PALPITATIONS 05/10/19 Yes Antihistamines - Ethylenediamine Adverse Reaction Intermediate PALPITATIONS 05/10/19 Yes Antihistamines - Ethanolamine Adverse Reaction Mild PALPITATIONS 05/10/19 Yes Antihistamines - Piperazine Adverse Reaction Mild Palpitations 05/10/19 Yes Antihistamines - Piperidine Adverse Reaction Mild Palpitations 05/10/19 Yes Physical Exam Physical Exam Constitutional: Well developed, well nourished, MILD acute distress, non-toxic appearance. [] HENT: Normocephalic, atraumatic, bilateral external ears normal, oropharynx moist, no oral exudates, nose normal. [] Eyes: PERRLA, EOMI, conjunctiva normal, no discharge. [] Neck: Normal range of motion, no tenderness, supple, no stridor. [] Cardiovascular:TACHYCARDIA, SUPRAVENTRICULAR rhythm, no murmur [] Lungs & Thorax: Bilateral breath sounds clear to auscultation [] Abdomen: Bowel sounds normal, soft, no tenderness, no masses, no pulsatile masses. [] Skin: Warm, dry, FLUSHED, WARM TO TOUCH Back: No tenderness, no CVA tenderness. [] Extremities: No tenderness, no cyanosis, no clubbing, ROM intact, no edema. [] Neurologic: Alert and oriented X 3, normal motor function, normal sensory function, no focal deficits noted. [] Psychologic: Affect normal, judgement normal, mood normal. [] Current Patient Data Vital Signs Vital Signs Date Time Temp Pulse Resp B/P (MAP) Pulse Ox O2 Delivery O2 Flow Rate FiO2 07/09/19 17:00 88 18 156/65 (95) 95 Room Air 07/09/19 14:59 99.0 Lab Results Laboratory Tests Test 07/09/19 15:09 White Blood Count 7.7 x10^3/uL (4.0-11.0) Red Blood Count 4.61 x10^6/uL (3.50-5.40) Hemoglobin 12.7 g/dL (12.0-15.5) Hematocrit 39.4 % (36.0-47.0) Mean Corpuscular Volume 85 fL (79-100) Mean Corpuscular Hemoglobin 28 pg (25-35) Mean Corpuscular Hemoglobin Concent 32 g/dL (31-37) Red Cell Distribution Width 15.7 % (11.5-14.5) H Platelet Count 332 x10^3/uL (140-400) Neutrophils (%) (Auto) 60 % (31-73) Lymphocytes (%) (Auto) 29 % (24-48) Monocytes (%) (Auto) 6 % (0-9) Eosinophils (%) (Auto) 5 % (0-3) H Basophils (%) (Auto) 1 % (0-3) Neutrophils # (Auto) 4.6 x10^3uL (1.8-7.7) Lymphocytes # (Auto) 2.2 x10^3/uL (1.0-4.8) Monocytes # (Auto) 0.5 x10^3/uL (0.0-1.1) Eosinophils # (Auto) 0.4 x10^3/uL (0.0-0.7) Basophils # (Auto) 0.0 x10^3/uL (0.0-0.2) Prothrombin Time 9.3 SEC (9.4-11.4) L Prothrombin Time INR 0.9 (0.9-1.1) Activated Partial Thromboplast Time 27 SEC (23-33) Sodium Level 141 mmol/L (136-145) Potassium Level 3.7 mmol/L (3.5-5.1) Chloride Level 102 mmol/L (98-107) Carbon Dioxide Level 25 mmol/L (21-32) Anion Gap 14 (6-14) Blood Urea Nitrogen 17 mg/dL (7-20) Creatinine 0.9 mg/dL (0.6-1.0) Estimated GFR (Cockcroft-Gault) 62.1 BUN/Creatinine Ratio 19 (6-20) Glucose Level 162 mg/dL (70-99) H Calcium Level 8.7 mg/dL (8.5-10.1) Magnesium Level 1.7 mg/dL (1.8-2.4) L Total Bilirubin 0.2 mg/dL (0.2-1.0) Aspartate Amino Transferase (AST) 25 U/L (15-37) Alanine Aminotransferase (ALT) 51 U/L (14-59) Alkaline Phosphatase 134 U/L (46-116) H Troponin I Quantitative < 0.017 ng/mL (0-0.055) GY-Hnp-H-Type Natriuretic Peptide 85 pg/mL (0-124) Total Protein 7.1 g/dL (6.4-8.2) Albumin 3.2 g/dL (3.4-5.0) L Albumin/Globulin Ratio 0.8 (1.0-1.7) L EKG EKG First EKG was done at 3 pm, rate of 125 BPM, SUPRAVENTRICULAR RHYTHM, RBBB, NO STEMI. Second EKG was done after iv lopressor, done at 5:20 pm, rate of 90 BPM, SINUS RHYTHM, NO STEMI. [] Radiology/Procedures Radiology/Procedures [][address] [id number] IMAGING REPORT Signed PATIENT: DANY PABLO ACCOUNT: [id number] : 1950 LOCATION: ER AGE: 68 SEX: F EXAM STATUS: REG ER ORD. PHYSICIAN: SHERRY CAGE DO REASON: heart palpitation PROCEDURE: PORTABLE CHEST 1V Examination: PORTABLE CHEST 1V History: Palpitations Comparison/Correlation: 05/08/2019 AP view of the chest Findings: Portable upright frontal view of the chest were obtained. Heart size and pulmonary vasculature are normal. No infiltrate or pleural effusion. No pneumothorax. Bony structures are unremarkable. Impression: No acute process. Electronically signed by: Jhon Mabry MD (07/09/2019 3:38 PM) [facility] DICTATED AND SIGNED BY: JHON MABRY MD DATE: 07/09/19 1538 CC: JULIA DAS; SHERRY CAGE DO ~ Course & Med Decision Making Course & Med Decision Making Pertinent Labs and Imaging studies reviewed. (See chart for details) Patient is a 68-year-old female who was felt to have heart palpitation. Patient was given medication in the ER, her heart rate slowed out. Patient still feelS weak and dizzy, she WAS AB;E TO WALK TO THE TOILET HERSELF WITHOUT ANY PROBLEM. PATIENT'S SKIN WAS NOT HOT FLUSH ANYMORE. SHE STILL FEELS WEAK, WILL ADMIT HER FOR OBSERVATION. Dragon Disclaimer Dragon Disclaimer This electronic medical record was generated, in whole or in part, using a voice recognition dictation system. Departure Departure: Impression: Primary Impression: Heart palpitations Additional Impression: Generalized weakness Disposition: 09 ADMITTED INPATIENT Admitting Physician: Hanna Arce Condition: STABLE Referrals: JULIA DAS (PCP) Problem Qualifiers SHERRY CAGE DO Jul 09, 2019 18:03
--- NOTE | 2019-07-09 19:05 | EKG ---
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
[2019-07-09 20:45] VITALS: BP 147/74
[2019-07-09] MEDS ORDERED: ANTI-COAG MONITOR BY PHARMACY. MC PRN (23:15)
[2019-07-09] MEDS: FAMOTIDINE 20 MG TABLET PO SCH (23:51)
[2019-07-09] MEDS: FLECAINIDE 50 MG TABLET. PO SCH (23:51)
[2019-07-09] MEDS: LISINOPRIL 10 MG TABLET PO SCH (23:51)
[2019-07-09] MEDS: APIXABAN 5 MG TABLET. PO SCH (23:51)
[2019-07-09] MEDS: OXYBUTYNIN CHLORIDE 5 MG TABLET PO SCH (23:52)
[2019-07-10 05:59] VITALS: BP 152/75
[2019-07-10] MEDS: ASPIRIN ENTERIC COATED 81 MG TABLET.DR. PO SCH (08:18)
[2019-07-10] MEDS: OXYBUTYNIN CHLORIDE 5 MG TABLET PO SCH ×2 (08:18→21:04)
[2019-07-10] MEDS: LISINOPRIL 10 MG TABLET PO SCH ×2 (08:18→21:00)
[2019-07-10] MEDS: FAMOTIDINE 20 MG TABLET PO SCH ×2 (08:18→21:04)
[2019-07-10] MEDS: MULTIVITAMIN with MINERAL TABLET. PO SCH (08:19)
[2019-07-10] MEDS ORDERED: ONDANSETRON PF 4 MG/2 ML VIAL. IVP PRN (08:30)
[2019-07-10] MEDS: GLUCOSAMINE/CHOND 500/400MG CAPSULE PO SCH (09:00)
[2019-07-10] MEDS: APIXABAN 5 MG TABLET. PO SCH ×2 (09:00→21:04)
[2019-07-10] MEDS: FLECAINIDE 50 MG TABLET. PO SCH ×2 (09:00→21:04)
--- NOTE | 2019-07-10 09:37 | PDOC2 ---
OLIVIA GUZMÁN PABLO 07/10/19 0937: CARDIAC CONSULT DATE OF CONSULT Date Of Consult DATE: 07/10/19 TIME: 09:34 REASON FOR CONSULT Reason for Consult palpitations REFERRING PHYSICIAN Referring Physician Dr. Arce SOURCE Source: Chart review, Patient HPI History of Present Illness This is a 68 yo female who presented secondary to palpitations. Reports she ate lung around 2 pm last night. Follow lunch, had sudden onset of feeling flushed and shaking. Notice palpitations and reports she began to panic. No shortness of breath, dizziness, diaphoresis, or nausea/vomiting. Called EMS. EKG upon arrival appears to be 2:1 flutter. Converted to SR with IV lopressor. Has maintained overnight. Prior h/o of PAFIB. Follows with Dr. Paz and Lilian So APRN with [facility]. Had stress test in April which she reports as normal. Is on Cardizem and flecainide for rhythm/rate control. Reports she feel poor every day for about 2 hours following taking her meds. Reports she feels shaky and has difficulty functioning. PAST MEDICAL HISTORY Cardiovascular: AFIB, HTN, hyperipidemia Pulmonary: Other (HILDA) GI: GERD Heme/Onc: Cancer (cervical ) Psych: Anxiety, Depression Musculoskeletal: Osteoarthritis PAST SURGICAL HISTORY Past Surgical History: Hysterectomy FAMILY HISTORY Family History Heart Disease (brother ), Hypertension SOCIAL HISTORY Social History Smoke: No ALCOHOL: none Drugs: None Lives: Alone CURRENT MEDICATIONS Current Medications Current Medications Metoprolol Tartrate (Lopressor Vial) 5 mg 1X ONCE IV Last administered on 07/09/19at 15:24; Start 07/09/19 at 15:15; Stop 07/09/19 at 15:17; Status DC Metoprolol Tartrate (Lopressor Vial) 5 mg 1X ONCE IV Last administered on 07/09/19at 16:20; Start 07/09/19 at 16:15; Stop 07/09/19 at 16:16; Status DC Magnesium Sulfate 100 ml @ 100 mls/hr 1X ONCE IV Last administered on 07/09/19at 16:41; Start 07/09/19 at 17:00; Stop 07/09/19 at 17:59; Status DC Apixaban (Eliquis) 5 mg BID PO Last administered on 07/10/19at 09:00; Start 2/17/20 at 23:45 Aspirin (Aspirin Enteric Coated) 81 mg DAILYWBKFT PO Last administered on 07/10/19at 08:18; Start 07/10/19 at 08:00 Diltiazem HCl (Diltiazem 24hr Cd) 300 mg DAILY PO Last administered on 07/10/19at 08:19; Start 07/10/19 at 09:00 Famotidine (Pepcid) 20 mg BID PO Last administered on 07/10/19at 08:18; Start 07/09/19 at 23:45 Flecainide Acetate (Tambocor) 50 mg BID PO Last administered on 07/09/19at 23:51; Start 07/09/19 at 23:45 Lisinopril (Prinivil) 10 mg BID PO Last administered on 07/10/19at 08:18; Start 07/09/19 at 23:45 Glucosamine/ Chondroitin (Glucosamine-Chondroitin 500/400mg) 1 cap DAILY PO ; Start 07/10/19 at 09:00 Multivitamins/ Calcium (Thera-M Plus) 1 tab DAILY PO Last administered on 07/10/19at 08:19; Start 07/10/19 at 09:00 Oxybutynin Chloride (Ditropan) 5 mg BID PO Last administered on 07/10/19at 08:18; Start 07/09/19 at 23:45 Info (Anti-Coagulation Monitoring By Pharmacy) 1 each PRN DAILY PRN MC SEE COMMENTS; Start 07/09/19 at 23:15 Ondansetron HCl (Zofran) 4 mg PRN Q4HRS PRN IVP NAUSEA/VOMITING; Start 07/10/19 at 08:30 Active Scripts Active Famotidine 20 Mg Tablet 20 Mg PO BID Aspirin Ec (Aspirin) 81 Mg Tablet. 81 Mg PO DAILYWBKFT 90 Days Eliquis (Apixaban) 5 Mg Tablet 5 Mg PO BID 30 Days Reported Diltiazem 24HR Cd (Diltiazem Hcl) 300 Mg Cap.er.24h 300 Mg PO DAILY Oxybutynin Chloride Er (Oxybutynin Chloride) 10 Mg Tab.er.24 10 Mg PO HS Lisinopril 10 Mg Tablet 10 Mg PO BID Flecainide Acetate 50 Mg Tablet 50 Mg PO BID Multivitamins (Multivitamin) 1 Each Tablet 1 Tab PO DAILY Glucosamine Chondroitin Tab (Gluc Good/Chondro Good A/Vit C/Mn) 1 Each Tablet 1 Each PO DAILY ALLERGIES Allergies: Coded Allergies: Penicillins (Verified Allergy, Intermediate, 11/26/18) levofloxacin (Verified Allergy, Unknown, 07/09/19) Antihistamines - Alkylamine (Verified Adverse Reaction, Intermediate, PALPITATIONS, 05/10/19) Antihistamines - Ethylenediamine (Verified Adverse Reaction, Intermediate, PALPITATIONS, 05/10/19) Antihistamines - Ethanolamine (Verified Adverse Reaction, Mild, PALPITATIONS, 05/10/19) Antihistamines - Piperazine (Verified Adverse Reaction, Mild, Palpitations, 05/10/19) Antihistamines - Piperidine (Verified Adverse Reaction, Mild, Palpitations, 05/10/19) ROS Review of Systems 14 point ROS conducted with pertinent positives noted above in HPI PHYSICAL EXAM Physical Exam General: Alert, Oriented X3, Cooperative, No acute distress HEENT: Atraumatic, Mucous membr. moist/pink Lungs: Clear to auscultation Heart: Regular rate, Normal S1, Normal S2, Other (2/6 systolic murmur ) Abdomen: Soft, No tenderness Extremities: No edema, Normal pulses Skin: No breakdown Neuro: Normal speech, Sensation intact Psych/Mental Status: Mental status NL, Mood NL MUSCULOSKELETAL: Osteoarthritic changes both hands VITALS Vital Signs Vital Signs Date Time Temp Pulse Resp B/P (MAP) Pulse Ox O2 Delivery O2 Flow Rate FiO2 07/10/19 08:19 76 152/75 07/10/19 05:59 98.0 18 91 Nasal Cannula 2.0 LABS LABS Laboratory Tests Test 07/09/19 15:09 White Blood Count 7.7 x10^3/uL (4.0-11.0) Red Blood Count 4.61 x10^6/uL (3.50-5.40) Hemoglobin 12.7 g/dL (12.0-15.5) Hematocrit 39.4 % (36.0-47.0) Mean Corpuscular Volume 85 fL (79-100) Mean Corpuscular Hemoglobin 28 pg (25-35) Mean Corpuscular Hemoglobin Concent 32 g/dL (31-37) Red Cell Distribution Width 15.7 % (11.5-14.5) Platelet Count 332 x10^3/uL (140-400) Neutrophils (%) (Auto) 60 % (31-73) Lymphocytes (%) (Auto) 29 % (24-48) Monocytes (%) (Auto) 6 % (0-9) Eosinophils (%) (Auto) 5 % (0-3) Basophils (%) (Auto) 1 % (0-3) Neutrophils # (Auto) 4.6 x10^3uL (1.8-7.7) Lymphocytes # (Auto) 2.2 x10^3/uL (1.0-4.8) Monocytes # (Auto) 0.5 x10^3/uL (0.0-1.1) Eosinophils # (Auto) 0.4 x10^3/uL (0.0-0.7) Basophils # (Auto) 0.0 x10^3/uL (0.0-0.2) Prothrombin Time 9.3 SEC (9.4-11.4) Prothromb Time International Ratio 0.9 (0.9-1.1) Activated Partial Thromboplast Time 27 SEC (23-33) Sodium Level 141 mmol/L (136-145) Potassium Level 3.7 mmol/L (3.5-5.1) Chloride Level 102 mmol/L (98-107) Carbon Dioxide Level 25 mmol/L (21-32) Anion Gap 14 (6-14) Blood Urea Nitrogen 17 mg/dL (7-20) Creatinine 0.9 mg/dL (0.6-1.0) Estimated GFR (Cockcroft-Gault) 62.1 BUN/Creatinine Ratio 19 (6-20) Glucose Level 162 mg/dL (70-99) Calcium Level 8.7 mg/dL (8.5-10.1) Magnesium Level 1.7 mg/dL (1.8-2.4) Total Bilirubin 0.2 mg/dL (0.2-1.0) Aspartate Amino Transf (AST/SGOT) 25 U/L (15-37) Alanine Aminotransferase (ALT/SGPT) 51 U/L (14-59) Alkaline Phosphatase 134 U/L (46-116) Troponin I Quantitative < 0.017 ng/mL (0-0.055) UW-Whw-Y-Type Natriuretic Peptide 85 pg/mL (0-124) Total Protein 7.1 g/dL (6.4-8.2) Albumin 3.2 g/dL (3.4-5.0) Albumin/Globulin Ratio 0.8 (1.0-1.7) ECHOCARDIOGRAM Echocardiogram <Conclusion> The left ventricular systolic function is normal and the ejection fraction is within normal range. The Ejection Fraction is 60-65%. There is normal LV segmental wall motion. The left atrium is severely dilated. Doppler and Color Flow revealed trace tricuspid regurgitation with an estimated PAP of 53 mmHg. DATE: 04/12/19 1348 ASSESSMENT/PLAN Assessment/Plan 1. Palpitations secondary to below 2. PAFIB; EKG shows a-flutter with RVR. Converted back to SR s/p IV lopressor. Has maintained overnight. On Cardizem and flecainide for rhythm/rate control. Recent echo with preserved LV systolic function. MPI 04/2019 reportedly normal 3. Hypertension; controlled 4. Hyperlipidemia 5. HLIDA with CPAP 6. Hypomagnesemia; replaced Recommendations Continue Cardizem, flecainide. Increase activity and monitor telemetry. Consider increasing flecainide given PAFIB/flutter. Eliquis for stroke prophylaxis. Consider EP referral, will defer to Primary cardiology team at [facility]. COMFORT SANCHEZ MD 07/11/19 1039: CARDIAC CONSULT ASSESSMENT/PLAN Assessment/Plan Patient seen and examined on 07/10/19. PAF with episode of atrial flutter last night. Given IV Lopressor and has converted to sinus. On cardizem and Flecainide. Eliquis for anticoagulation. MPI last April was reportedly normal and patient has normal LV function on ECHO. Feeling much better. Will increase activity and monitor. Outpt EP evaluation. HTN. Controlled on present medication. HLD. Statin. Hypo mag. Replaced. HILDA. Thank you for allowing us to participate in the care of your patient. OLIVIA GUZMÁN APRN Jul 10, 2019 09:37 COMFORT SANCHEZ MD Jul 11, 2019 10:39
[2019-07-10 10:17] LABS: BASO # 0.1 x10^3/uL (0.0-0.2); BASO % 1 % (0-3); EOS # 0.2 x10^3/uL (0.0-0.7); EOS % 2 % (0-3); HEMOGLOBIN 13.2 g/dL (12.0-15.5); LYMPH # 1.6 x10^3/uL (1.0-4.8); LYMPH % 16 % (24-48); MEAN CORPUSCULAR HEMOGLOBIN 28 pg (25-35); MEAN CORPUSCULAR HGB CONC 33 g/dL (31-37); MEAN CORPUSCULAR VOLUME 85 fL (79-100); MONO # 0.4 x10^3/uL (0.0-1.1); MONO % 4 % (0-9); NEUT # 7.5 x10^3uL (1.8-7.7); NEUT % 77 % (31-73); PLATELET COUNT 339 x10^3/uL (140-400); RED CELL DISTRIBUTION WIDTH 15.7 % (11.5-14.5); WHITE BLOOD COUNT 9.7 x10^3/uL (4.0-11.0)
[2019-07-10 10:33] LABS: ALBUMIN 3.2 g/dL (3.4-5.0); ALBUMIN/GLOBULIN RATIO 0.8 (1.0-1.7); CALCIUM 8.7 mg/dL (8.5-10.1); CREATININE 0.8 mg/dL (0.6-1.0); GFR 71.1; POTASSIUM 4.1 mmol/L (3.5-5.1); TOTAL BILIRUBIN 0.2 mg/dL (0.2-1.0); TOTAL PROTEIN 7.1 g/dL (6.4-8.2)
[2019-07-10 10:47] VITALS: BP 148/65
[2019-07-10 14:40] VITALS: BP 137/73
--- NOTE | 2019-07-10 14:53 | HP ---
ADMIT DATE: 07/09/2019 HISTORY OF PRESENT ILLNESS: The patient is a 68-year-old female patient who came to the Emergency Room complaining of feeling generally weak, shaky. She started to have her heart racing and possess some shortness of breath. She was evaluated in the Emergency Room, was found to have her EKG showed that she was at a heart rate of 125 beats per minute, seems to be irregular, slow supraventricular rhythm with right bundle branch block. No ST segment elevation. She has metoprolol tartrate twice and her heart rate dropped down to 90 and she was admitted for further evaluation and treatment. PAST MEDICAL HISTORY: Significant for atrial fibrillation, hypertension, hyperlipidemia, recurrent UTIs, interstitial cystitis, seasonal asthma and obstructive sleep apnea, on CPAP. She has also history of cervical cancer, anxiety and depression and generalized osteoarthritis. PAST SURGICAL HISTORY: Significant for left groin abscess incision and drainage and total abdominal hysterectomy. ALLERGIES: SHE IS ALLERGIC TO PENICILLIN AND ANTIHISTAMINE. FAMILY HISTORY: She has 3 brothers, 1 older who has myocardial infarction and apparently has 3 cardiac arrests, had 2 younger brothers who are healthy. She has one sister who of brain tumor. Her mother at the age of 36 because of Hodgkin's lymphoma. Father at the age of 82 because of lung cancer. SOCIAL HISTORY: She is , lives alone. She has step children. She never smoked, does not drink alcohol. She is retired. REVIEW OF SYSTEMS: The patient denied any blurring of vision, cataract, glaucoma or macular degeneration. Denied any earache, tinnitus or sensorineural deafness. Denied any nosebleeds or postnasal drip. Denied any sore throat, sore tongue, toothache, hoarseness of voice or difficulty swallowing. Denied any nausea, vomiting, diarrhea or constipation. Denied any hematemesis, melena, hematochezia. Denied any dysuria, frequency or hematuria. Denied any chest pain, shortness of breath, orthopnea, paroxysmal nocturnal dyspnea. Denied any cough, phlegm or hemoptysis. Did complain of shaking chills. Denied any fever or rigors. Denied any dizziness or lightheadedness. Did complain of generalized weakness and tremulousness. PHYSICAL EXAMINATION: GENERAL: On arrival to the Emergency Room, the patient looked well and was clearly in no apparent respiratory distress. There was no pallor, jaundice, cyanosis or thyromegaly. No jugular venous distention. No limb edema. VITAL SIGNS: Her heart rate on arrival was 125 beats per minute, blood pressure was 177/90, temperature was 99, respiratory rate was 18 and oxygen saturation was 95%. HEAD, EYES, EARS, NOSE AND THROAT: Showed normocephalic, atraumatic. NECK: Supple. HEART: Showed normal first and second heart sounds. No gallop, rub or murmur. CHEST: Clear to auscultation. No crepitation or rhonchi. ABDOMEN: Distended, soft, nontender. No guarding or rigidity. No organomegaly. All hernial orifices intact. Bowel sounds normal. The surgical incision on her left groin where an abscess was incised and drained, is healing with healthy granulation tissue. There is minimal drainage. There is no surrounding erythema or tenderness. NEUROLOGIC: She is somewhat sleepy, but arousable. All cranial nerves intact. EXTREMITIES: She moves extremities without difficulty. LABORATORY DATA: Her lab work showed her white cell count was 7700, hemoglobin 12.7, hematocrit 39, MCV 85 and platelet count 332,000 with a manual differential showed 60% polymorphs, 29% lymphocytes, 6% monocytes. Her prothrombin time, INR and aPTT are all normal. Her chemistry showed a serum sodium 141, potassium 3.7, chloride 102, bicarbonate 25, anion gap of 14, BUN 17, creatinine 0.9, estimated GFR was 62 mL per minute. Her glucose 162, calcium was 8.7, magnesium was 1.7. Total bilirubin, AST, ALT were normal. Alkaline phosphatase slightly elevated. Her total protein was 7.1, albumin was 3.2. Her chest x-ray showed that the patient's heart size and pulmonary vasculature are normal, no infiltrate or pleural effusion. No pneumothorax. No other bony structures, unremarkable. ASSESSMENT AND PLAN: The patient was admitted with palpitation and generalized weakness. She was continued on her medication that included apixaban 5 mg twice a day, flecainide 50 mg twice a day, diltiazem 300 mg daily, lisinopril 10 mg twice a day, aspirin 81 mg once a day, famotidine 20 mg twice a day, oxybutynin chloride 10 mg daily at bedtime, multivitamin 1 tablet once a day, glucosamine chondroitin sulfate 1 tablet once a day. We will consult the cardiology team to assist with management. NORMA EDGAR MD DR: [email or web address]/[email or web address] JOB#: [id number] / [id number]
[2019-07-10 18:38] VITALS: BP 130/68
[2019-07-10 19:11] LABS: THYROID STIM HORMONE (TSH) 1.917 uIU/mL (0.358-3.740)
[2019-07-10] MEDS ORDERED: ACETAMINOPHEN 325 MG TABLET PO PRN (19:45)
[2019-07-10] MEDS ORDERED: METOCLOPRAMIDE HCL 10 MG/2 ML VIAL. IVP PRN (20:00)
[2019-07-10 23:01] VITALS: BP 117/58
[2019-07-11 05:23] VITALS: BP 153/76
[2019-07-11 06:40] LABS: HEMATOCRIT 39.9 % (36.0-47.0); RED BLOOD COUNT 4.69 x10^6/uL (3.50-5.40); RED CELL DISTRIBUTION WIDTH 16.3 % (11.5-14.5); WHITE BLOOD COUNT 7.3 x10^3/uL (4.0-11.0)
[2019-07-11 06:49] LABS: ALBUMIN 3.2 g/dL (3.4-5.0); ALBUMIN/GLOBULIN RATIO 0.8 (1.0-1.7); C REACTIVE PROTEIN 16.4 mg/L (0-3.3); CALCIUM 8.9 mg/dL (8.5-10.1); CREATININE 0.8 mg/dL (0.6-1.0); GFR 71.1; POTASSIUM 4.2 mmol/L (3.5-5.1); TOTAL BILIRUBIN 0.2 mg/dL (0.2-1.0)
--- NOTE | 2019-07-11 08:16 | PDOC ---
CARDIO Progress Notes Date & Time Date of Service DATE: 07/11/19 TIME: 08:13 Time of Evaluation 08:13 Subjective Notes feels very weak, sleepy. Face is flushed. Had meds at 0825. Vitals Vitals Vital Signs Date Time Temp Pulse Resp B/P (MAP) Pulse Ox O2 Delivery O2 Flow Rate FiO2 07/11/19 05:23 97.5 85 20 153/76 (101) 99 Nasal Cannula 2.0 Weight Weight [ ] Input and Output I.O. Intake and Output 07/11/19 07:00 Intake Total 1050 ml Balance 1050 ml Intake Oral 1050 ml # Voids 2 Laboratory Labs Laboratory Tests Test 07/09/19 15:09 07/10/19 10:10 07/11/19 06:17 White Blood Count 7.7 x10^3/uL (4.0-11.0) 9.7 x10^3/uL (4.0-11.0) 7.3 x10^3/uL (4.0-11.0) Red Blood Count 4.61 x10^6/uL (3.50-5.40) 4.70 x10^6/uL (3.50-5.40) 4.69 x10^6/uL (3.50-5.40) Hemoglobin 12.7 g/dL (12.0-15.5) 13.2 g/dL (12.0-15.5) 13.0 g/dL (12.0-15.5) Hematocrit 39.4 % (36.0-47.0) 40.0 % (36.0-47.0) 39.9 % (36.0-47.0) Mean Corpuscular Volume 85 fL (79-100) 85 fL (79-100) 85 fL (79-100) Mean Corpuscular Hemoglobin 28 pg (25-35) 28 pg (25-35) 28 pg (25-35) Mean Corpuscular Hemoglobin Concent 32 g/dL (31-37) 33 g/dL (31-37) 33 g/dL (31-37) Red Cell Distribution Width 15.7 % (11.5-14.5) 15.7 % (11.5-14.5) 16.3 % (11.5-14.5) Platelet Count 332 x10^3/uL (140-400) 339 x10^3/uL (140-400) 319 x10^3/uL (140-400) Neutrophils (%) (Auto) 60 % (31-73) 77 % (31-73) Lymphocytes (%) (Auto) 29 % (24-48) 16 % (24-48) Monocytes (%) (Auto) 6 % (0-9) 4 % (0-9) Eosinophils (%) (Auto) 5 % (0-3) 2 % (0-3) Basophils (%) (Auto) 1 % (0-3) 1 % (0-3) Neutrophils # (Auto) 4.6 x10^3uL (1.8-7.7) 7.5 x10^3uL (1.8-7.7) Lymphocytes # (Auto) 2.2 x10^3/uL (1.0-4.8) 1.6 x10^3/uL (1.0-4.8) Monocytes # (Auto) 0.5 x10^3/uL (0.0-1.1) 0.4 x10^3/uL (0.0-1.1) Eosinophils # (Auto) 0.4 x10^3/uL (0.0-0.7) 0.2 x10^3/uL (0.0-0.7) Basophils # (Auto) 0.0 x10^3/uL (0.0-0.2) 0.1 x10^3/uL (0.0-0.2) Prothrombin Time 9.3 SEC (9.4-11.4) Prothromb Time International Ratio 0.9 (0.9-1.1) Activated Partial Thromboplast Time 27 SEC (23-33) Sodium Level 141 mmol/L (136-145) 142 mmol/L (136-145) 142 mmol/L (136-145) Potassium Level 3.7 mmol/L (3.5-5.1) 4.1 mmol/L (3.5-5.1) 4.2 mmol/L (3.5-5.1) Chloride Level 102 mmol/L (98-107) 104 mmol/L (98-107) 105 mmol/L (98-107) Carbon Dioxide Level 25 mmol/L (21-32) 27 mmol/L (21-32) 29 mmol/L (21-32) Anion Gap 14 (6-14) 11 (6-14) 8 (6-14) Blood Urea Nitrogen 17 mg/dL (7-20) 13 mg/dL (7-20) 14 mg/dL (7-20) Creatinine 0.9 mg/dL (0.6-1.0) 0.8 mg/dL (0.6-1.0) 0.8 mg/dL (0.6-1.0) Estimated GFR (Cockcroft-Gault) 62.1 71.1 71.1 BUN/Creatinine Ratio 19 (6-20) 16 (6-20) 18 (6-20) Glucose Level 162 mg/dL (70-99) 151 mg/dL (70-99) 111 mg/dL (70-99) Calcium Level 8.7 mg/dL (8.5-10.1) 8.7 mg/dL (8.5-10.1) 8.9 mg/dL (8.5-10.1) Magnesium Level 1.7 mg/dL (1.8-2.4) 1.9 mg/dL (1.8-2.4) Total Bilirubin 0.2 mg/dL (0.2-1.0) 0.2 mg/dL (0.2-1.0) 0.2 mg/dL (0.2-1.0) Aspartate Amino Transf (AST/SGOT) 25 U/L (15-37) 27 U/L (15-37) 33 U/L (15-37) Alanine Aminotransferase (ALT/SGPT) 51 U/L (14-59) 51 U/L (14-59) 55 U/L (14-59) Alkaline Phosphatase 134 U/L (46-116) 125 U/L (46-116) 123 U/L (46-116) Troponin I Quantitative < 0.017 ng/mL (0-0.055) < 0.017 ng/mL (0-0.055) NF-Wbb-C-Type Natriuretic Peptide 85 pg/mL (0-124) Total Protein 7.1 g/dL (6.4-8.2) 7.1 g/dL (6.4-8.2) 7.0 g/dL (6.4-8.2) Albumin 3.2 g/dL (3.4-5.0) 3.2 g/dL (3.4-5.0) 3.2 g/dL (3.4-5.0) Albumin/Globulin Ratio 0.8 (1.0-1.7) 0.8 (1.0-1.7) 0.8 (1.0-1.7) Triglycerides Level 216 mg/dL (0-150) Cholesterol Level 161 mg/dL (0-200) LDL Cholesterol, Calculated 69 mg/dL (0-100) VLDL Cholesterol, Calculated 43 mg/dL (0-40) Non-HDL Cholesterol Calculated 112 mg/dL (0-129) HDL Cholesterol 49 mg/dL (40-60) Cholesterol/HDL Ratio 3.0 Thyroid Stimulating Hormone (TSH) 1.917 uIU/mL (0.358-3.740) Erythrocyte Sedimentation Rate 42 (0-25) C-Reactive Protein 16.4 mg/L (0-3.3) Lipase 145 U/L (73-393) Physical Exams HEENT: Neck Supple W Full Motion Chest: Symmetric Lungs: Clear to Auscultation Heart: S1S2, RRR Abdomen: Soft N/T Extremities: No Edema Neurology: alert, oriented, follow commands Assessment Assessment 1. Palpitations secondary to below. 2. PAFIB/flutter; EKG shows a-flutter with RVR. Has maintained SR since arrival to the floor. Recent echo with preserved LV systolic function. MPI 04/2019 reportedly normal 3. Hypertension ;controlled 4. Hyperlipidemia; LDL 69 5. HILDA with CPAP 6. Weakness, fatigue; reports this has occurred daily for the last 6 months following medication administration. Resolves after 2 hrs. Recommendations Continue Cardizem Will increase flecainide to 100mg BID for rhythm maintenance Eliquis for stroke prophylaxis. Consider EP referral for possible ablation, will defer to Primary fur designer. Close follow up with Lilian So APRN/ OLIVIA Marie APRN Jul 11, 2019 08:16
[2019-07-11] MEDS: ASPIRIN ENTERIC COATED 81 MG TABLET.DR. PO SCH (08:23)
[2019-07-11] MEDS: MULTIVITAMIN with MINERAL TABLET. PO SCH (08:23)
[2019-07-11] MEDS: APIXABAN 5 MG TABLET. PO SCH (08:25)
[2019-07-11] MEDS: OXYBUTYNIN CHLORIDE 5 MG TABLET PO SCH (08:25)
[2019-07-11] MEDS: FAMOTIDINE 20 MG TABLET PO SCH (08:25)
[2019-07-11] MEDS: LISINOPRIL 10 MG TABLET PO SCH (08:25)
[2019-07-11] MEDS: GLUCOSAMINE/CHOND 500/400MG CAPSULE PO SCH (08:26)
[2019-07-11] MEDS: FLECAINIDE 50 MG TABLET. PO SCH (08:26)
[2019-07-11 10:49] VITALS: BP 151/72
[2019-07-11 12:12] LABS: BILIRUBIN,URINE NEG (NEG); CLARITY,URINE CLEAR; COLOR,URINE YELLOW; GLUCOSE,URINE NEG (NEG); NITRITE,URINE NEG (NEG); UROBILINOGEN,URINE 0.2 mg/dL (0.2 mg/dL)
[2019-07-11 12:13] LABS: BACTERIA,URINE 0 /HPF (0-FEW); SQUAMOUS EPITHELIAL CELL,UR FEW /LPF
[2019-07-11 16:04] LABS: BGAS PH 7.44 (7.35-7.45)
--- NOTE | 2019-07-11 16:12 | DISCH ---
HOME HEALTH DISCHARGE/MEDS DISCHARGE INFORMATION: Discharge Date: Jul 11, 2019 Final Diagnosis: Problems Medical Problems: (1) Generalized weakness Status: Acute (2) Heart palpitations Status: Acute Condition on Discharge: Stable CODE STATUS: Code Status: Full HOME HEALTH: Face to Face: I certify this patient is under my care and that I, or a nurse practitioner or physician's server assistant working with me, had a face to face encounter that meets the physician face to face encounter requirements with this patient on 07/11/19 Medical Condition(s): Other Senior Living For: Admin/Educate Injections Physical Therapy For: Evalulation/Treatment Occupational Therapy For: Evaluation/Treatment POST DISCHARGE ORDERS: Activity Instructions for Disc: Resume previous activity DIET AFTER DISCHARGE: Cardiac CERTIFICATION STATEMENT: Certification Statement: Based on the above finding, I certify that this patient is confined to the home and needs intermittent long-term care, physical therapy and/or speech therapy, or continues to need occupational therapy.~ This patient is under my care, and I have initiated the establishment of the plan of care.~ This patient will be followed by myself or a community physician who will periodically review the plan of care. DISCHARGE MEDICATIONS: Home Meds Active Scripts Famotidine (FAMOTIDINE) 20 Mg Tablet, 20 MG PO BID for GERD, #90 TAB 3 Refills Prov:SHERRY ALVARENGA MD 05/07/19 Aspirin (ASPIRIN EC) 81 Mg Tablet.dr, 81 MG PO DAILYWBKFT for anticoagulant for 90 Days, #90 TAB 3 Refills Prov:SHERRY ALVARENGA MD 05/07/19 Apixaban (ELIQUIS) 5 Mg Tablet, 5 MG PO BID for stroke prevention for 30 Days, #60 TAB Prov:NORMA EDGAR MD 08/04/18 Reported Medications Diltiazem Hcl (DILTIAZEM 24HR CD) 300 Mg Cap.er.24h, 300 MG PO DAILY for Afib 05/07/19 Oxybutynin Chloride (OXYBUTYNIN CHLORIDE ER) 10 Mg Tab.er.24, 10 MG PO HS for overactive bladder 04/12/19 Lisinopril (LISINOPRIL) 10 Mg Tablet, 10 MG PO BID for HTN 04/12/19 Flecainide Acetate (FLECAINIDE ACETATE) 50 Mg Tablet, 50 MG PO BID for antiarrhythmic 04/12/19 Multivitamin (MULTIVITAMINS) 1 Each Tablet, 1 TAB PO DAILY for Supplementation, #90 TAB 3 Refills 08/04/18 Gluc Good/Chondro Good A/Vit C/Mn (GLUCOSAMINE CHONDROITIN TAB) 1 Each Tablet, 1 EACH PO DAILY for Osteoarthritis, TAB 08/04/18 NORMA EDGAR MD Jul 11, 2019 16:12
--- NOTE | 2019-07-11 17:30 | EKG ---
[address] [address] Test Date: 2019-07-11 Test Time: 13:22:06 Pat Name: DANY PABLO Department: Room: 109 A Gender: F Data Analysis Manager: : [id number] Requested By: NORMA EDGAR Order Number: [id number] Reading MD: Measurements Intervals [place] Rate: 97 P: 89 IL: 176 QRS: -43 QRSD: 108 T: 86 QT: 350 QTc: 449 Interpretive Statements SINUS RHYTHM ABNORMAL LEFT AXIS DEVIATION LEFT ANTERIOR FASCICULAR BLOCK QRS(T) CONTOUR ABNORMALITY CONSIDER ANTEROSEPTAL MYOCARDIAL DAMAGE T ABNORMALITY IN HIGH LATERAL LEADS ABNORMAL ECG RI6.02 No previous ECG available for comparison
--- NOTE | 2019-07-11 20:49 | DS ---
DATE OF DISCHARGE: HOSPITAL COURSE: The patient is a 68-year-old female patient who was admitted through the Emergency Room on 07/09/2019 with a complaint of palpitation with sudden onset of feeling flushed, shaky, noted palpitation, reports to be panic. She denied any shortness of breath, dizziness, diaphoresis or nausea or vomiting. The EKG upon arrival of the EMS showed that she has 2:1 flutter, converted to sinus rhythm with IV Lopressor and has maintained that overnight and over the last 3 days her diltiazem and flecainide were increased, but the patient was reluctant to change the dose, did make her very weak and tired, and basically I spoke with Lilian So and the plan was for her to be discharged home with home health and for her to follow with the primary repair mechanic at [facility] with a plan to arrange for her to be seen by estimator printing sooner. PHYSICAL EXAMINATION: GENERAL: When I saw her today this afternoon, she was resting slightly propped up in bed, in no apparent respiratory distress. No pallor, jaundice, cyanosis or thyromegaly. No jugular venous distention. No lower limb edema. VITAL SIGNS: Her heart rate was 105, blood pressure 151/72, temperature was 97.9, respiratory rate was 18 and oxygen saturation was 96%. HEAD, EYES, EARS, NOSE AND THROAT: Showed normocephalic, atraumatic. NECK: Supple. HEART: Showed normal first and second heart sounds with no gallop or murmur. CHEST: Clear to auscultation. No crepitation or rhonchi. ABDOMEN: Distended, soft, nontender. NEUROLOGIC: She is awake, alert, responding appropriately. All cranial nerves intact. She moves extremities without difficulty. She ambulates with standby assist. In fact, they saw her standing and walking in her room without any assistance or assistive devices. Her intake and output are incompletely recorded. LABORATORY DATA: Her white cell count this morning was 7300, hemoglobin 13, hematocrit 39, MCV 85 and platelet count 319,000. Her prothrombin time was 9.3, INR and aPTT were normal. Her blood gases showed a pH of 7.44, pCO2 of 40, pO2 of 78, bicarbonate 27 and oxygen saturation was 96% on FiO2 of 21%. Her chemistry today showed a serum sodium 142, potassium 4.2, chloride 105, bicarbonate 29, anion gap of 8, BUN 14, creatinine 0.8, estimated GFR was 71 mL per minute. Her glucose was 111, calcium was 8.9, magnesium was 1.9. Total bilirubin, AST, ALT were normal. Alkaline phosphatase slightly elevated. She had 3 sets of cardiac enzymes that were negative. Her C-reactive protein was 16.4, total protein 7, albumin 3.2. Her lipase was 145. TSH was normal at 1.917. DISCHARGE MEDICATIONS: She was discharged home to continue on her home medication that included apixaban 5 mg twice a day, aspirin 81 mg once a day, famotidine 20 mg twice a day, diltiazem 300 mg daily, lisinopril 10 mg twice a day, oxybutynin chloride 10 mg at bedtime as well as glucosamine chondroitin sulfate with vitamin C 1 tablet once a day. FINAL DISCHARGE DIAGNOSES: Palpitation secondary to paroxysmal atrial fibrillation/flutter, on arrival the patient shows atrial flutter with rapid ventricular rate, has maintained sinus rhythm since arrival to the floor; hypertension, hyperlipidemia; obstructive sleep apnea, on CPAP; weakness, fatigue. She reports that this occurred daily for the last 6 months, following medications administration resolved after 2 hours. The plan is to discharge her home with home health and to follow with her primary repair mechanic at [facility]. NORMA EDGAR MD DR: MONA/jagdeep JOB#: [id number] / [id number]
[2019-07-11] MEDS ORDERED: FLECAINIDE 50 MG TABLET. PO SCH (21:00)
--- NOTE | 2019-07-11 21:54 | PN ---
DATE: 07/11/2019 SUBJECTIVE: The patient is resting slightly propped up in bed, continued to complain of being very tired and weak. Denied any specific complaints, in particular. Denied any chest pain, shortness of breath, cough, phlegm or hemoptysis. Denied any chills, rigors, or fever. Denied any dysuria, frequency or hematuria. PHYSICAL EXAMINATION: GENERAL: When I examined her this afternoon, she was resting slightly propped up in bed, in no apparent respiratory distress. No pallor, jaundice, cyanosis or thyromegaly. No jugular venous distention. No limb edema. VITAL SIGNS: Her heart rate was 105, blood pressure 151/72, temperature was 97.9, respiratory rate was 18 and oxygen saturation was 96%. HEAD, EYES, EARS, NOSE AND THROAT: Showed normocephalic, atraumatic. NECK: Supple. HEART: Showed normal first and second heart sounds. No gallop or murmur. CHEST: Clear to auscultation. No crepitation or rhonchi. ABDOMEN: Distended, soft, nontender. NEUROLOGIC: She was awake, alert, responding appropriately. Cranial nerves intact. She moves extremities without difficulty. She ambulates with a standby assist. Her intake over the last 24 hours was 1015, no output was recorded. LABORATORY DATA: Her lab work this morning showed a white cell count 7300, hemoglobin 13, hematocrit 39, MCV 85 and platelet count 319,000. Her chemistry showed a serum sodium 142, potassium 4.2, chloride 105, bicarbonate 29, anion gap of 8, BUN 14, creatinine 0.8, estimated GFR was 71 mL per minute. Her glucose 111, calcium was 8.9. Total bilirubin, AST, ALT were normal. Alkaline phosphatase slightly elevated. C-reactive protein was 16.4. Total protein 7, albumin 3.2. ASSESSMENT: 1. Generalized weakness and fatigue. According to her this has been going on for the last 6 months following medication administration. 2. Paroxysmal atrial fibrillation flutter. EKG showed that she is in atrial flutter with RVR and has maintained his sinus rhythm since arrival to the floor. Her recent echo showed preserved left ventricular systolic function and nuclear stress test was reportedly normal. 3. Hypertension, well controlled. 4. Hyperlipidemia, well controlled. 5. Obstructive sleep apnea, on CPAP. PLAN: My plan is to basically continue with her Cardizem. Her flecainide was increased to 100 mg twice a day. Her Eliquis was continued. I will repeat her labs. I will repeat her EKG and cardiac enzymes as well as blood gases to rule out the possibility that she might be retaining carbon dioxide and will decide on further management accordingly. NORMA EDGAR MD DR: MONA/jagdeep JOB#: [id number] / [id number]
== END 2019-07-11 16:56 | disposition home or self-care (01) ==
LOC: ER 14:55 → 1 SOUTH 17:50 → OBSVTOIN 07-10 10:29 → INTOOBSV 07-10 10:29
PROVIDERS: ADMIT Internal Medicine; ATTEND Internal Medicine
DX: I48.0 Paroxysmal atrial fibrillation (principal); I48.92 Unspecified atrial flutter; R00.2 Palpitations; R53.1 Weakness; I10 Essential (primary) hypertension; E78.5 Hyperlipidemia, unspecified; J45.909 Unspecified asthma, uncomplicated; G47.33 Obstructive sleep apnea (adult) (pediatric); M15.9 Polyosteoarthritis, unspecified; R42 Dizziness and giddiness; K21.9 Gastro-esophageal reflux disease without esophagitis; E83.42 Hypomagnesemia; R53.83 Other fatigue; Z85.41 Personal history of malignant neoplasm of cervix uteri; Z90.710 Acquired absence of both cervix and uterus; Z79.82 Long term (current) use of aspirin; Z79.899 Other long term (current) drug therapy; Z79.01 Long term (current) use of anticoagulants; Z88.0 Allergy status to penicillin
CPT/HCPCS: 36415; 71045; 80053; 80061; 81001; 82803; 83690; 83735; 83880; 84443; 84484; 85025; 85027; 85610; 85651; 85730; 86140; 87086; 93005; 96365; 96375; 96376; 97116; 97161; 97166; 99285; G0378; J2765; J3475; J3490; 36569; G0379

== ENCOUNTER 2019-08-03 20:49 | Emergency (ER) | payer MEDICARE ==
[~2019-08-03] VITALS: Ht 157.5 cm; Wt 98.9 kg
[2019-08-03] MEDS ORDERED: ONDANSETRON PF 4 MG/2 ML VIAL. IVP ONE (21:30)
[2019-08-03] MEDS ORDERED: IV NORMAL SALINE 1,000ML 1,000 ML IV ONE (21:30)
[2019-08-03 21:44] LABS: BASO % 0 % (0-3); EOS # 0.2 x10^3/uL (0.0-0.7); EOS % 3 % (0-3); HEMATOCRIT 39.7 % (36.0-47.0); LYMPH # 1.2 x10^3/uL (1.0-4.8); LYMPH % 14 % (24-48); MEAN CORPUSCULAR HEMOGLOBIN 28 pg (25-35); MEAN CORPUSCULAR HGB CONC 33 g/dL (31-37); MEAN CORPUSCULAR VOLUME 86 fL (79-100); MONO # 0.3 x10^3/uL (0.0-1.1); MONO % 4 % (0-9); NEUT # 6.7 x10^3uL (1.8-7.7); NEUT % 80 % (31-73); PLATELET COUNT 301 x10^3/uL (140-400); RED BLOOD COUNT 4.64 x10^6/uL (3.50-5.40); RED CELL DISTRIBUTION WIDTH 16.1 % (11.5-14.5); WHITE BLOOD COUNT 8.4 x10^3/uL (4.0-11.0)
[2019-08-03 21:51] LABS: CALCIUM 9.1 mg/dL (8.5-10.1); CREATININE 0.7 mg/dL (0.6-1.0); POTASSIUM 4.3 mmol/L (3.5-5.1)
[2019-08-03 21:57] LABS: ALBUMIN 3.4 g/dL (3.4-5.0); ALBUMIN/GLOBULIN RATIO 0.9 (1.0-1.7); TOTAL BILIRUBIN 0.3 mg/dL (0.2-1.0); TOTAL PROTEIN 7.1 g/dL (6.4-8.2)
--- NOTE | 2019-08-03 22:03 | PHYS DOC ---
Past History Past Medical History: A-Fib, Anxiety, Arthritis, Arrhythmia, Depression, High Cholesterol, Hypertension, Other Additional Past Medical Histor: INTERSTITIAL CYSTITIS Past Surgical History: Cancer Surgery, Hysterectomy, Other Additional Past Surgical Histo: LUMPECTOMY Smoking: Non-smoker Alcohol Use: None Drug Use: None Adult General Chief Complaint Chief Complaint: URINARY FREQUENCY HPI HPI 68-year-old female presents with 2 day history of dysuria. She was also feeling a bit dehydrated today. She had diarrhea a couple days before the dysuria. She started drinking some Pedialyte today and then had vomiting. She decided she is accompanied to the emergency room. She does not currently have any abdominal pain. She had no abdominal symptoms prior to the vomiting. Denies fever or chills. No known sick contacts. Review of Systems Review of Systems Constitutional: Denies fever or chills [] Eyes: Denies change in visual acuity, redness, or eye pain [] HENT: Denies nasal congestion or sore throat [] Respiratory: Denies cough or shortness of breath [] Cardiovascular: No additional information not addressed in HPI [] GI: As stools. Denies abdominal pain, nausea, vomiting, bloody stools.[] : Increased urinary frequency, dysuria Musculoskeletal: Denies back pain or joint pain [] Integument: Denies rash or skin lesions [] Neurologic: Denies headache, focal weakness or sensory changes [] Endocrine: Denies polyuria or polydipsia [] All other systems were reviewed and found to be within normal limits, except as documented in this note. Current Medications Current Medications Current Medications Medications (Trade) Dose Ordered Sig/Evangelina Start Time Stop Time Status Last Admin Dose Admin Ondansetron HCl (Zofran) 4 mg 1X ONCE 08/03/19 21:30 08/03/19 21:31 DC 08/03/19 21:37 4 MG Sodium Chloride 1,000 ml @ 1,000 mls/hr 1X ONCE 08/03/19 21:30 08/03/19 22:29 08/03/19 21:34 1,000 MLS/HR Allergies Allergies Allergies Coded Allergies Type Severity Reaction Last Updated Verified Penicillins Allergy Intermediate 11/26/18 Yes levofloxacin Allergy Unknown 07/09/19 Yes Antihistamines - Alkylamine Adverse Reaction Intermediate PALPITATIONS 05/10/19 Yes Antihistamines - Ethylenediamine Adverse Reaction Intermediate PALPITATIONS 05/10/19 Yes Antihistamines - Ethanolamine Adverse Reaction Mild PALPITATIONS 05/10/19 Yes Antihistamines - Piperazine Adverse Reaction Mild Palpitations 05/10/19 Yes Antihistamines - Piperidine Adverse Reaction Mild Palpitations 05/10/19 Yes Physical Exam Physical Exam Constitutional: Well developed, obese, well nourished, no acute distress, non- toxic appearance. [] HENT: Normocephalic, atraumatic, bilateral external ears normal, oropharynx moist, no oral exudates, nose normal. [] Eyes: PERRLA, EOMI, conjunctiva normal, no discharge. [] Neck: Normal range of motion, no tenderness, supple, no stridor. [] Cardiovascular: Heart rate regular rhythm, no murmur [] Lungs & Thorax: Bilateral breath sounds clear to auscultation [] Abdomen: Bowel sounds normal, soft, no tenderness, no masses, no pulsatile masses. [] Skin: Warm, dry, no erythema, no rash. [] Back: No tenderness, no CVA tenderness. [] Extremities: No tenderness, no cyanosis, no clubbing, ROM intact, no edema. [] Neurologic: Alert and oriented X 3, normal motor function, normal sensory function, no focal deficits noted. [] Psychologic: Affect normal, judgement normal, mood normal. [] Current Patient Data Vital Signs Vital Signs Date Time Temp Pulse Resp B/P (MAP) Pulse Ox O2 Delivery O2 Flow Rate FiO2 08/03/19 21:05 97.7 86 20 161/62 (95) 97 Room Air Lab Results Laboratory Tests Test 08/03/19 21:30 White Blood Count 8.4 x10^3/uL (4.0-11.0) Red Blood Count 4.64 x10^6/uL (3.50-5.40) Hemoglobin 13.0 g/dL (12.0-15.5) Hematocrit 39.7 % (36.0-47.0) Mean Corpuscular Volume 86 fL (79-100) Mean Corpuscular Hemoglobin 28 pg (25-35) Mean Corpuscular Hemoglobin Concent 33 g/dL (31-37) Red Cell Distribution Width 16.1 % (11.5-14.5) H Platelet Count 301 x10^3/uL (140-400) Neutrophils (%) (Auto) 80 % (31-73) H Lymphocytes (%) (Auto) 14 % (24-48) L Monocytes (%) (Auto) 4 % (0-9) Eosinophils (%) (Auto) 3 % (0-3) Basophils (%) (Auto) 0 % (0-3) Neutrophils # (Auto) 6.7 x10^3uL (1.8-7.7) Lymphocytes # (Auto) 1.2 x10^3/uL (1.0-4.8) Monocytes # (Auto) 0.3 x10^3/uL (0.0-1.1) Eosinophils # (Auto) 0.2 x10^3/uL (0.0-0.7) Basophils # (Auto) 0.0 x10^3/uL (0.0-0.2) EKG EKG [] Radiology/Procedures Radiology/Procedures [] Course & Med Decision Making Course & Med Decision Making Pertinent Labs and Imaging studies reviewed. (See chart for details) The patient's labs are unremarkable. Her urinalysis is negative for infection. This could be a viral illness. I will discharge her with prescription for Zofran. She is stable for discharge at this time. [] Dragon Disclaimer Dragon Disclaimer This electronic medical record was generated, in whole or in part, using a voice recognition dictation system. Departure Departure: Impression: Primary Impression: Urinary frequency Additional Impression: Vomiting Disposition: 01 HOME, SELF-CARE Condition: STABLE Referrals: JULIA DAS (PCP) Patient Instructions: Nausea and Vomiting, [id number], Urinary Frequency Problem Qualifiers Additional Impression: Vomiting Vomiting type: unspecified Vomiting Intractability: non-intractable Nausea presence: with nausea Qualified Codes: R11.2 - Nausea with vomiting, unspecified DEVIN SPRAGUE DO Aug 03, 2019 22:03
[2019-08-03 22:34] LABS: BILIRUBIN,URINE NEG (NEG); CLARITY,URINE CLEAR; COLOR,URINE YELLOW; GLUCOSE,URINE NEG (NEG)
[2019-08-03 22:35] LABS: BACTERIA,URINE 0 /HPF (0-FEW); NITRITE,URINE NEG (NEG); RBC,URINE OCC /HPF (0-2); SQUAMOUS EPITHELIAL CELL,UR OCC /LPF; UROBILINOGEN,URINE 0.2 mg/dL (0.2 mg/dL)
[2019-08-03] MEDS ORDERED: ONDA4TAB12 PO (22:46)
[2019-08-03 23:13] VITALS: BP 135/58
== END 2019-08-03 23:25 | disposition home or self-care (01) ==
LOC: ER 20:49
DX: R35.0 Frequency of micturition (principal); R11.2 Nausea with vomiting, unspecified; R19.7 Diarrhea, unspecified; R30.0 Dysuria; I48.91 Unspecified atrial fibrillation; M19.90 Unspecified osteoarthritis, unspecified site; E78.00 Pure hypercholesterolemia, unspecified; I10 Essential (primary) hypertension; Z88.0 Allergy status to penicillin; Z88.1 Allergy status to other antibiotic agents; Z88.8 Allergy status to other drugs, medicaments and biological substances
CPT/HCPCS: 36415; 80053; 81001; 85025; 87086; 96361; 96374; 99283; J2405; J7030

== ENCOUNTER → 2020-02-07 | Outpatient (CLI) | payer MEDICARE ==
[~2020-02-07] MED LIST changes: -ASPI-612 PO; +ASPI-889 PO; +MULT-445 PO; -MULT1TAB52 PO; +ONDA4TAB12 PO
--- NOTE | 2020-02-15 16:19 | RAD ---
BILATERAL SCREENING MAMMOGRAM History: Routine screening. Comparison: 03/22/2018, 02/22/2017, 04/24/2015 and older prior images. Technique: Routine bilateral digital mammogram views were obtained. Findings: Breast Tissue Density B : There are scattered areas of fibroglandular density. There are no dominant masses, suspicious microcalcifications, or architectural distortion. IMPRESSION: No mammographic evidence of malignancy. Recommend routine screening. BI-RADS category 1: Negative. The images were reviewed with computer aided detection. Patient information is entered into the reminder system with a target due date for the next screening mammogram. Mammography is the most sensitive method for finding small breast cancers, but it does not detect them all and is not a substitute for careful clinical examination. A negative mammogram does not negate a clinically suspicious finding and should not result in delay in biopsying a clinically suspicious abnormality. "Our facility is accredited by the [employer] Mammography Program." Electronically signed by: Jhon Clarke MD (02/15/2020 4:16 PM) [id number]
== END ==
LOC: MAMMO 11:20
PROVIDERS: ATTEND Obstetrics & Gynecology
DX: Z12.31 Encounter for screening mammogram for malignant neoplasm of breast (principal)
CPT/HCPCS: 77067

== ENCOUNTER → 2020-04-08 | Outpatient (CLI) | payer MEDICARE ==
--- NOTE | 2020-04-08 12:17 | RAD ---
EXAM: DUAL ENERGY X-RAY ABSORPTIOMETRY (DEXA). HISTORY: Postmenopausal screening. FINDINGS: The lowest measured T-score is -1.7 in the right femoral neck, based on a bone mineral density of 0.808 g/cm^2. Refer to the worksheets for full detail. No comparison examinations are available. IMPRESSION: Low bone mass. Bone mineral density yields a T-score between -1.0 and -2.5. Fracture risk is increased. FRAX was not calculated. METHODOLOGY: Dual energy x-ray absorptiometry was performed to measure bone mineral density. The following analysis is based on the 2019 Official Positions of the International Society for Clinical Densitometry: Measurements of the hips and the average of L1-L4 are preferred. When the spine and/or hip cannot be feasibly measured or interpreted, or in the setting of hyperparathyroidism, distal radial bone mineral density may be measured. The lumbar spine T-score is based on the average bone mineral density of L1-L4. In the setting of artifact or anatomic abnormality, some lumbar levels may be excluded, and the remaining levels used for calculation. A single lumbar level is not used for diagnosis, and if only a single level is available for assessment, another anatomic site will be used to assign a diagnosis. The hip T-score is based on the bone mineral density measurement of the femoral neck or total proximal femur of either side, whichever is lowest. Bilateral mean values are not used for diagnosis. The forearm T-score is derived from 33% of the distal radius of the nondominant forearm. For postmenopausal and perimenopausal women, and men age 50 or older, of all ethnic groups, T-scores are calculated through comparison of the current measurement with the NHANES III database standard for females aged 20-29 years. The lowest T-score of the evaluated anatomic sites is used to assign a diagnosis based on the World Health Organization densitometric classification. In premenopausal females and males younger than age 50, a Z-score is calculated based on population specific reference data for patient sex and self-reported ethnicity. Electronically signed by: Reynold Santos MD (04/08/2020 12:14 PM) [id number]
== END ==
LOC: DXRAD 11:00
PROVIDERS: ATTEND Obstetrics & Gynecology
DX: Z78.0 Asymptomatic menopausal state (principal); M89.9 Disorder of bone, unspecified
CPT/HCPCS: 77080